=== PATIENT | female | born 1955 | race Caucasian/White ===

== ENCOUNTER 2024-05-07 13:05 | Outpatient (AMB) | payer MEDICARE, SELFPAY ==
--- NOTE | 2024-05-07 13:09 | MHC.OFFVIS ---
Vital Signs 05/07/24 13:19 Height 5 ft 4 in Weight 143 lb 4.807 oz BMI 24.6 BP 120/62 Blood Pressure Location Lt brachial Position Sitting Pulse 63 Pulse Source Monitor Intake Visit Reasons: [employer]/ Susan Leon/ blank as, sob,palps,tachy Allergies Penicillins Allergy (Severe, Verified 05/07/24 13:21) rash Medication List - Last Reconciled 05/07/24 by Sagar Lazo MD magnesium 250 mg PO DAILY minoxidil 2.5 mg PO DAILY propranolol 10 mg PO BID PRN tramadol 25 mg PO Q6H PRN zoledronic uewx-pnsbbral-opqjv 5 mg/100 mL ea IV HPI Comments Details: Jonna has been referred for cardiac evaluation. She does not have any known cardiac issues including coronary disease or myocardial infarction or cardiomyopathy. In March of this year, she was having a viral infection. At that time, it seems that she underwent a chest x-ray that was reported as pulmonary edema which started cardiac evaluation. Subsequently, she had an echocardiogram that reported prva-pw-dvwxfsuu aortic stenosis. Hence there is a concern for any cardiac etiology for her symptoms and hence she is referred here. Patient herself is very active at baseline without any limitations. Recently, she went for hiking trip in [place] and she did well. She does get some chest pressure which has actually been ongoing for more than a year. Nonexertional and can happen any time. She also feels some pulsations in the throat at any time, this could be possibly ectopy but not clear. Some shortness of breath but again somewhat of a vague description as she is still very active. No significant leg swelling. Overall, constellation of symptoms which do not sound classical for angina but could be a sequelae of recent viral infection. [facility] Surgical History (Updated 05/07/24 @ 13:28 by Josephine Torrez) H/O shoulder surgery Family History (Updated 05/07/24 @ 13:29 by Josephine Torrez) Sister Heart problem Father No problems noted. Mother No problems noted. Social History (Updated 05/07/24 @ 13:30 by Josephine Torrez) Alcohol intake: current Alcohol type: wine Patient Tobacco Use Status: Never used Tobacco Review of Systems Const Denies weakness ENT Denies dizziness Card Reports chest pain, Denies chest pain with activity, Denies syncope, Denies rapid heart rate, Denies pedal edema, Denies edema, Denies leg edema, Denies lightheadedness, Reports palpitations, Denies dyspnea, Denies dyspnea on exertion and Denies orthopnea Resp Denies cough, Denies dyspnea and Denies dyspnea on exertion GI Denies hematochezia and Denies change in stool character Musc Denies abnormal gait, Denies muscle cramps, Denies muscle weakness, Denies numbness, Denies radiating pain into limb and Denies tingling Neuro Denies abnormal gait, Denies dizziness, Denies syncope, Denies numbness, Denies tingling and Denies weakness Endo Reports palpitations Physical Exam Vital Signs: Last Vital Signs Pulse 63 05/07/24 13:19 BP 120/62 05/07/24 13:19 BMI result Body Mass Index 24.6 Const General: comfortable and no acute distress Orientation/consciousness: patient oriented x3 HEENT Other: Unremarkable Head: Yes normal to inspection Neck Neck: Yes normal visual inspection Chest Chest palpation & inspection: normal inspection of the chest Resp Auscultation: clear to auscultation bilaterally Cardio Palpation: normal PMI Heart sounds: S1 normal heart sound present, S2 normal heart sound present, no gallops, no murmurs and no rubs GI Palpation (GI): Soft to palpation Back/Spine/Pelvis Other: unremarkable Skin General skin exam: no rashes or lesions noted Neuro General: patient oriented x3 Extrem General: Yes normal to inspection Psych Mental Status: mental status grossly normal Office Procedures EKG Details: EKG with underlying sinus rhythm at 63/Min; inferior and anterolateral nonspecific ST-T changes; [place] [id number], Complete Assessment & Plan Assessment & Plan (1) Precordial chest pain: Code(s): R07.2 - Precordial pain Category: Medical (2) Shortness of breath: Code(s): R06.02 - Shortness of breath Category: Medical (3) Palpitations: Code(s): R00.2 - Palpitations Category: Medical Plan Pertinent data reviewed. EKG with nonspecific ST-T changes as above. Recent NT proBNP well within normal limits which goes against any significant cardiac dysfunction. Other labs seem unremarkable. Chest x-ray which was performed because of cough reported as mildly enlarged heart/mild pulmonary edema but wonder if it was just a viral pneumonitis rather. Do not believe they enlarged heart finding is relevant as the echocardiogram shows normal LV size. In the recent echocardiogram, LVEF 60-65% with normal septal/lateral E prime as well as normal diastolic filling suggestive of overall normal diastolic function with normal filling pressures. Left atrium is normal size. Top normal RVSP. IVC has normal size/respiratory variation. Aortic valve reported have hson-gg-ctodstqx stenosis but the mean gradient is only 5 mm Hg and hence doubt any significance especially with normal LVOT VTI suggesting normal stroke volume. Even otherwise the reported xmcf-bl-zwogsuzo stenosis should not be causing any of her symptoms. Clinically, she does not have any aortic stenotic murmur either. Overall, do not believe shortness of breath/cough are of cardiac etiology. Could be related to a recent viral infection. With regard to the longstanding chest pressure which has been going on for more than a year, again not clear as to etiology. We will do a coronary CTA for further evaluation. With regard to the palpitations that go up to her throat, possible ectopy. We will do a Holter monitor for that. We will reconvene once these are all completed. Otherwise, mainly reassurance at this time. Discussed with who came for appointment. Orders: Orders CT Cardiac Coronary Angio Today R07.2 - Precordial pain ECG 7 day holter monitor Today R00.2 - Palpitations Basic Metabolic Panel Today R07.2 - Precordial pain Coding Level of Care Code New Pt Level 4 (73161) Diagnoses Precordial chest pain R07.2 Shortness of breath R06.02 Palpitations R00.2 CPT Codes EKG - CPT: 04069-[id number], Complete ([id number])
[2024-05-07 13:19] VITALS: BP 120/62; PULSE 63; BMI 24.6
== END 2024-05-07 14:05 | disposition home or self-care (01) ==
PROVIDERS: PCP Family Medicine; Visit Provider Internal Medicine
DX: R07.2 Precordial pain (principal); R06.02 Shortness of breath; R00.2 Palpitations
CPT/HCPCS: 93010; 99204

== ENCOUNTER → 2024-05-07 13:05 | Outpatient (BNVA) | payer MEDICARE, SELFPAY | PROVIDERS: PCP Family Medicine; Visit Provider Internal Medicine | DX: R07.2 Precordial pain (principal); R06.02 Shortness of breath; R00.2 Palpitations | CPT/HCPCS: 93005; 99202 ==

== ENCOUNTER → 2024-05-24 08:40 | Outpatient (REF) | payer MEDICARE, SELFPAY ==
--- NOTE | 2024-05-24 08:44 | HM_ITS ---
* Total monitoring time 6 days and 11 hours. * Underlying rhythm is sinus with an average rate of 83/Min. * Rare supraventricular ectopy. * Rare ventricular ectopy. Short run of 5 beats, but could also be supraventricular. * No significant pauses or high-grade AV blocks. * No patient markers or diary events. MTDD
== END ==
LOC: HO.CARD 08:40
PROVIDERS: PCP Family Medicine; Visit Provider Internal Medicine
DX: R00.2 Palpitations (principal)
CPT/HCPCS: 93242

== ENCOUNTER → 2024-05-24 08:44 | Outpatient (BNV) | payer MEDICARE, SELFPAY | PROVIDERS: PCP Family Medicine; Visit Provider Internal Medicine | DX: I47.10 Supraventricular tachycardia, unspecified (principal) | CPT/HCPCS: 93244 ==

== ENCOUNTER 2024-07-12 15:11 | Outpatient (REF) | payer MEDICARE, SELFPAY ==
[2024-07-12 16:13] LABS: Anion Gap 13 (12-20); Blood Urea Nitrogen 17 mg/dL (9-16); Calcium 9.7 mg/dL (8.4-10.2); Carbon Dioxide 23 mmol/L (22-29); Chloride 110 mmol/L (96-108); Estimated Glomerular Filt Rate > 60; Glucose Random 86 mg/dL (60-115); Potassium 4.2 mmol/L (3.3-5.1); Sodium 142 mmol/L (135-145)
== END 2024-07-12 15:12 | disposition home or self-care (01) ==
LOC: HO.LAB 15:11
PROVIDERS: PCP Family Medicine; Visit Provider Internal Medicine
DX: R07.2 Precordial pain (principal)
CPT/HCPCS: 36415; 80048

== ENCOUNTER 2024-08-12 13:15 | Outpatient (AMB) | payer MEDICARE, SELFPAY ==
[2024-08-12 13:20] VITALS: BP 118/70; PULSE 99; BMI 25.4
--- NOTE | 2024-08-12 13:20 | A.OFFVIS_ITS ---
Vital Signs 08/12/24 13:20 Height 5 ft 4 in Weight 147 lb 11.355 oz BMI 25.4 BP 118/70 Blood Pressure Location Lt brachial Position Sitting Pulse 99 Pulse Source Pulse Oximeter Intake Visit Reasons: f/up after cta Set Up Operator Tool Required: No Accompanied by: Self / Same As Patient Allergies Penicillins Allergy (Severe, Verified 05/07/24 13:21) rash Medication List - Last Reconciled 08/12/24 by Sagar Lazo MD minoxidil 2.5 mg PO DAILY multivitamin 1 tab PO DAILY prednisone 10 mg PO DIRECTED tramadol 25 mg PO Q6H PRN zoledronic kuav-hxmgjcpl-yxbzu 5 mg/100 mL ea IV HPI Comments Details: Jonna returns for follow-up. Recently seen in consultation regarding shortness of breath. No known cardiac issues. In 04/07/2024, she was having viral infection. After that, she underwent a chest x-ray that was reported as pulmonary edema which started the cardiac evaluation. Subsequently, she had an echocardiogram that reported xecu-ui-tneuadme aortic stenosis. Hence there was a concern for any cardiac etiology for her symptoms and hence she is referred here. Patient herself is very active at baseline without any limitations. Few months back, she went for hiking trip in [place] and she did well. She does get some chest pressure which has actually been ongoing for more than a year. Nonexertional and can happen any time. She also feels some pulsations in the throat at any time, this could be possibly ectopy but not clear. Shortness of breath is also ongoing. Also she states she got a recent viral/bronchial type infection and does not feel too good overall. She has completed a coronary CTA and Holter monitor. [facility] Surgical History H/O shoulder surgery Family History Sister Heart problem Father No problems noted. Mother No problems noted. Social History Alcohol intake: current Alcohol type: wine Patient Tobacco Use Status: Never used Tobacco Review of Systems Const Denies chills, Denies fatigue, Denies fever(s), Denies weight gain and Denies weight loss ENT Denies dizziness Card Denies chest pain, Denies leg edema, Denies lightheadedness, Denies palpitations, Reports dyspnea on exertion, Denies orthopnea and Denies other Resp Denies cough and Reports dyspnea on exertion GI Denies hematochezia and Denies change in stool character Musc Denies abnormal gait, Denies muscle weakness, Denies numbness, Denies radiating pain into limb and Denies tingling Neuro Denies abnormal gait, Denies dizziness, Denies numbness and Denies tingling Endo Denies fatigue and Denies palpitations Physical Exam Vital Signs: Last Vital Signs Pulse 99 08/12/24 13:20 BP 118/70 08/12/24 13:20 BMI result Body Mass Index 25.4 Const General: comfortable and no acute distress Orientation/consciousness: patient oriented x3 HEENT Other: Unremarkable Head: Yes normal to inspection Neck Neck: Yes normal visual inspection Chest Chest palpation & inspection: normal inspection of the chest Resp Other: Scattered rhonchi Cardio Palpation: normal PMI Heart sounds: S1 normal heart sound present, S2 normal heart sound present, no gallops, no murmurs and no rubs GI Palpation (GI): Soft to palpation Back/Spine/Pelvis Other: unremarkable Skin General skin exam: no rashes or lesions noted Neuro General: patient oriented x3 Extrem General: Yes normal to inspection Psych Mental Status: mental status grossly normal Assessment & Plan Assessment & Plan (1) Precordial chest pain: Code(s): R07.2 - Precordial pain Category: Medical (2) Shortness of breath: Code(s): R06.02 - Shortness of breath Category: Medical (3) Palpitations: Code(s): R00.2 - Palpitations Category: Medical (4) Atherosclerotic cardiovascular disease: Code(s): I25.10 - Atherosclerotic heart disease of [place] coronary artery without angina pectoris Category: Medical (5) PAC (premature atrial contraction): Code(s): I49.1 - Atrial premature depolarization Category: Medical (6) PVC (premature ventricular contraction): Code(s): I49.3 - Ventricular premature depolarization Category: Medical Plan Pertinent data reviewed. EKG with nonspecific ST-T changes. Recent NT proBNP well within normal limits which goes against any significant cardiac dysfunction. Other labs seem unremarkable. Chest x-ray which was performed because of cough reported as mildly enlarged heart/mild pulmonary edema but wonder if it was just a viral pneumonitis rather. Do not believe they enlarged heart finding is relevant as the echocardiogram shows normal LV size. In the recent echocardiogram, LVEF 60-65% with normal septal/lateral E' as well as normal diastolic filling suggestive of overall normal diastolic function with normal filling pressures. Left atrium is normal size. Top normal RVSP. IVC has normal size/respiratory variation. Aortic valve reported have cyrk-ce-wyurjyrg stenosis but the mean gradient is only 5 mm Hg and hence doubt any significance especially with normal LVOT VTI suggesting normal stroke volume. Even otherwise the reported ncka-qq-vkmamlgp stenosis should not be causing any of her symptoms. Clinically, she does not have any aortic stenotic murmur either. In the coronary CTA, minimal to mild stenosis in the LAD/diagonal. Study was performed for cardiac reasons, but lungs reported as no significant findings. In the Holter monitor, underlying rhythm is sinus with rare supraventricular/ventricular ectopy. Overall, suspect her symptoms of chest pressure/shortness of breath is most likely pulmonary in nature. Could be related to a viral infection which has possibly set off some chronic inflammation type picture. She does have mild wheezing on exam. Would refer her to Pulmonary Medicine further evaluation of this. May need further evaluation with PFTs and/or dedicated lung CTA. With regard to mild coronary disease, it is not causing any symptoms or clinical concerns at this time. We will get lipid profile from PCP and can consider statins. Follow-up in 3-4 months. Orders: Referrals Pulmonology Referral R06.02 - Shortness of breath Coding Level of Care Code Est Pt Level 4 (67044) Diagnoses Precordial chest pain R07.2 Shortness of breath R06.02 Palpitations R00.2 Atherosclerotic cardiovascular disease I25.10 PAC (premature atrial contraction) I49.1 PVC (premature ventricular contraction) I49.3
== END 2024-08-12 13:46 | disposition home or self-care (01) ==
PROVIDERS: PCP Family Medicine; Visit Provider Internal Medicine
DX: R07.2 Precordial pain (principal); R06.02 Shortness of breath; R00.2 Palpitations; I25.10 Atherosclerotic heart disease of native coronary artery without angina pectoris; I49.1 Atrial premature depolarization; I49.3 Ventricular premature depolarization
CPT/HCPCS: 99214

== ENCOUNTER → 2024-08-12 13:15 | Outpatient (BNVA) | payer MEDICARE, SELFPAY | PROVIDERS: PCP Family Medicine; Visit Provider Internal Medicine | DX: R06.02 Shortness of breath (principal); R07.2 Precordial pain; R00.2 Palpitations; I10 Essential (primary) hypertension; I25.10 Atherosclerotic heart disease of native coronary artery without angina pectoris; I49.1 Atrial premature depolarization; I49.3 Ventricular premature depolarization | CPT/HCPCS: 99212 ==

== ENCOUNTER 2024-08-22 12:53 | Outpatient (REF) | payer MEDICARE, SELFPAY ==
[2024-08-22 13:57] LABS: MANUAL DIFF FLAG NO
[2024-08-22 14:35] LABS: Basophils Percent Auto 0.6 % (0-2); Eosinophils Absolute Auto 0.1 X10*3/uL (0.0-0.4); Eosinophils Percent Auto 1.7 % (0-4); Hematocrit 39.8 % (37.0-47.0); Hemoglobin 12.9 g/dl (12.0-16.0); Imm Gran Abs Auto 0.01 X10*3/uL (0.00-0.03); Imm Gran Pct Auto 0.2 % (0.0-0.4); Lymphocytes Absolute Auto 1.9 X10*3/uL (1.2-4.9); Lymphocytes Percent Auto 35.7 % (20-40); Mean Corpuscular HGB Conc 32.4 g/dl (31.0-35.0); Mean Corpuscular Hemoglobin 30.9 pg (27.0-33.0); Mean Corpuscular Volume 95.4 fL (80.0-98.0); Monocytes Absolute Auto 0.5 X10*3/uL (0.1-1.2); Monocytes Percent Auto 9.9 % (2-11); Neutrophils Absolute Auto 2.8 x10*3/uL (2.0-8.3); Neutrophils Percent Auto 51.9 % (45-73); Platelet Count 298 X10*3/uL (160-400); Red Blood Count 4.17 X10*6/uL (4.20-5.50); Red Cell Distribution Width 11.8 % (11.0-16.0); White Blood Count 5.4 X10*3/uL (4.8-10.8)
[2024-08-22 14:43] LABS: D Dimer High Sensitivity < 150 NG/ML
[2024-08-22 15:15] LABS: B Type Natriuretic Peptide 17 pg/mL (<100)
[2024-08-22 15:18] LABS: Erythrocyte Sedimentation Rate 7 MM/HR (0-20)
[2024-08-23 21:03] LABS: Immunoglobulin E 151 kU/L (<OR=114)
== END 2024-08-22 12:54 | disposition home or self-care (01) ==
LOC: HO.LAB 12:53
PROVIDERS: PCP Family Medicine; Visit Provider Hospitalist
DX: R00.0 Tachycardia, unspecified (principal); R06.00 Dyspnea, unspecified; I35.0 Nonrheumatic aortic (valve) stenosis
CPT/HCPCS: 36415; 82785; 83880; 85025; 85379; 85652; 99202

== ENCOUNTER 2024-08-22 12:53 | Outpatient (AMB) | payer MEDICARE, SELFPAY ==
--- NOTE | 2024-08-22 13:01 | MHC.OFFVIS ---
Vital Signs 08/22/24 13:02 Height 5 ft 4 in Weight 145 lb 8.081 oz BMI 25.0 BP 110/64 Blood Pressure Location Lt brachial Position Sitting Pulse 71 Pulse Source Pulse Oximeter Pulse Oximetry (%) 97 Oxygen Delivery Method Room Air Intake Visit Reasons: Shortness of breath Allergies Penicillins Allergy (Severe, Verified 08/22/24 13:06) rash HPI Comments Details: This is a pulmonary evaluation. The patient is a 69 y/o woman presenting with dyspnea on exertion and palpitations. She was in her usual state of health untill around March 2024, she was having a viral infection. At that time, it seems that she underwent a chest x-ray that was reported as pulmonary edema which started cardiac evaluation. Subsequently, she had an echocardiogram that reported aknh-fh-gyndwacs aortic stenosis. The patient then developed Covid 19 s/p Paxlovid. Then, she recovered, but, then became sick again with a 3rd viral syndrome. Finally starting to feel better, but still having episodes of palpitations and tachycardia. Even at rest. During the office visit, we did go up 3 flights of stairs and HR increased to 116 and pox was stable. [facility] Medical History (Updated 08/22/24 @ 22:02 by Adam Bolden MD) Aortic stenosis Dyspnea Tachycardia Surgical History H/O shoulder surgery Family History Sister Heart problem Father No problems noted. Mother No problems noted. Social History Alcohol intake: current Alcohol type: wine Patient Tobacco Use Status: Never used Tobacco Review of Systems Const Denies chills, Denies fatigue, Denies fever(s), Denies weight gain and Denies weight loss ENT Denies dizziness Card Denies chest pain, Denies leg edema, Denies lightheadedness, Reports palpitations, Reports dyspnea on exertion, Denies orthopnea and Denies other Resp Denies cough and Reports dyspnea on exertion GI Denies hematochezia and Denies change in stool character Musc Denies abnormal gait, Denies muscle weakness, Denies numbness, Denies radiating pain into limb and Denies tingling Neuro Denies abnormal gait, Denies dizziness, Denies numbness and Denies tingling Endo Denies fatigue and Reports palpitations Physical Exam Vital Signs: Last Vital Signs Pulse 71 08/22/24 13:02 BP 110/64 08/22/24 13:02 Pulse Ox 97 08/22/24 13:02 Oxygen Delivery Method Room Air 08/22/24 13:02 BMI result Body Mass Index 25.0 Const General: comfortable and no acute distress Orientation/consciousness: patient oriented x3 HEENT Other: Unremarkable Head: Yes normal to inspection Neck Neck: Yes normal visual inspection Chest Chest palpation & inspection: normal inspection of the chest Resp Other: Scattered rhonchi Effort & Inspection: normal respiratory effort Auscultation: clear to auscultation bilaterally Cardio Palpation: normal PMI Heart sounds: S1 normal heart sound present, S2 normal heart sound present, no gallops, no murmurs and no rubs GI Palpation (GI): Soft to palpation Back/Spine/Pelvis Other: unremarkable Skin General skin exam: no rashes or lesions noted Neuro General: patient oriented x3 Extrem General: Yes normal to inspection Psych Mental Status: mental status grossly normal Assessment & Plan Assessment & Plan (1) Dyspnea: Code(s): R06.00 - Dyspnea, unspecified Category: Medical Qualifiers: Dyspnea type: dyspnea on exertion Qualified Code(s): R06.09 - Other forms of dyspnea (2) Aortic stenosis: Code(s): I35.0 - Nonrheumatic aortic (valve) stenosis Category: Medical Qualifiers: Cardiac valve disease etiology: etiology unspecified Qualified Code(s): I35.0 - Nonrheumatic aortic (valve) stenosis (3) Tachycardia: Code(s): R00.0 - Tachycardia, unspecified Category: Medical Plan PFTs Bloodwork monitor HR consider CPET if no better Orders: Orders D Dimer High Sensitivity Today R00.0 - Tachycardia, unspecified, R06.00 - Dyspnea, unspecified Complete Blood Count Auto Diff Today R00.0 - Tachycardia, unspecified, R06.00 - Dyspnea, unspecified Immunoglobulin E Today R00.0 - Tachycardia, unspecified, R06.00 - Dyspnea, unspecified Erythrocyte Sedimentation Rate Today R00.0 - Tachycardia, unspecified, R06.00 - Dyspnea, unspecified B Type Natriuretic Peptide Today R00.0 - Tachycardia, unspecified, R06.00 - Dyspnea, unspecified Coding Level of Care Code New Pt Level 4 (63428) Diagnoses Dyspnea on exertion R06.09 Dyspnea type: dyspnea on exertion Aortic valve stenosis, etiology of cardiac valve disease unspecified I35.0 Cardiac valve disease etiology: etiology unspecified Tachycardia R00.0 Time Spent (min) 40
[2024-08-22 13:02] VITALS: BP 110/64; PULSE 71; O2SAT 97; BMI 25.0
== END 2024-08-22 13:42 | disposition home or self-care (01) ==
PROVIDERS: PCP Family Medicine; Visit Provider Hospitalist
DX: R06.09 Other forms of dyspnea (principal); I35.0 Nonrheumatic aortic (valve) stenosis; R00.0 Tachycardia, unspecified
CPT/HCPCS: 99204

== ENCOUNTER 2024-10-04 13:49 | Outpatient (REF) | payer MEDICARE, SELFPAY ==
--- NOTE | 2024-10-04 13:55 | PFT_ITS ---
Indication: Dyspnea Spirometry [FEV1 to FVC 78%; FEV1 2.46 L; FVC 3.14 L. No significant response to bronchodilators noted.] Lung Volumes [Total lung capacity 101% predicted] Diffusion Capacity [DLCO 97% predicted] Comparisons [none] Interpretation [No obstructive nor restrictive ventilatory defects identified. No significant response to bronchodilators noted. Normal lung volumes. Diffusing capacity is within normal limits. Clinical correlation warranted.] MTDD
[2024-10-04 14:29] VITALS: PULSE 97; O2SAT 97
== END 2024-10-04 13:50 | disposition home or self-care (01) ==
LOC: HO.RESP 13:49
PROVIDERS: PCP Family Medicine; Visit Provider Hospitalist
DX: R06.09 Other forms of dyspnea (principal)
CPT/HCPCS: 94010; 94640; 94727; 94729

== ENCOUNTER → 2024-10-04 13:55 | Outpatient (BNV) | payer MEDICARE, SELFPAY | PROVIDERS: PCP Family Medicine; Visit Provider Hospitalist | DX: R06.09 Other forms of dyspnea (principal) | CPT/HCPCS: 94060; 94727; 94729 ==

== ENCOUNTER 2024-10-24 08:21 | Outpatient (REF) | payer MEDICARE, SELFPAY ==
[2024-10-24 09:36] LABS: Alanine Aminotransferase 26 U/L (0-31); Albumin Level 4.2 g/dL (3.5-5.0); Alkaline Phosphatase 61 U/L (39-117); Aspartate Amino Transferase 30 U/L (5-31); Bilirubin Direct 0.4 mg/dL (0.0-0.5); Bilirubin Total 1.2 mg/dL (0.0-1.0); Cholesterol 199 mg/dL (<200); HDL Cholesterol 96 mg/dL (>40); LDL Cholesterol Calculated 93 mg/dL (<100); Total Protein 6.6 g/dL (6.5-8.0); Triglycerides 53 mg/dL (<150)
== END 2024-10-24 08:22 | disposition home or self-care (01) ==
LOC: HO.LAB 08:21
PROVIDERS: PCP Family Medicine; Visit Provider Internal Medicine
DX: I25.10 Atherosclerotic heart disease of native coronary artery without angina pectoris (principal); I10 Essential (primary) hypertension
CPT/HCPCS: 36415; 80061; 80076

== ENCOUNTER 2024-10-31 13:46 | Outpatient (AMB) | payer MEDICARE, SELFPAY ==
[2024-10-31 14:11] VITALS: BP 126/66; PULSE 78; BMI 24.2
--- NOTE | 2024-10-31 14:11 | A.OFFVIS_ITS ---
Vital Signs 10/31/24 14:11 Height 5 ft 4 in Weight 141 lb 1.533 oz BMI 24.2 BP 126/66 Blood Pressure Location Lt brachial Position Sitting Pulse 78 Pulse Source Pulse Oximeter Intake Visit Reasons: 3m follow up Allergies Penicillins Allergy (Severe, Verified 08/22/24 13:06) rash Medication List - Last Reconciled 10/31/24 by Sagar Lazo MD ascorbate calcium (vitamin C) 500 mg PO DAILY atorvastatin 10 mg PO BEDTIME folic acid 1 mg PO DAILY minoxidil 2.5 mg PO DAILY multivitamin 1 tab PO DAILY zinc acetate 25 mg PO DAILY zoledronic amwe-qbuvtvgy-apdrf 5 mg/100 mL ea IV HPI Comments Details: Jonna returns for follow-up. Recently seen in consultation regarding shortness of breath. No known cardiac issues. In 03/2024, she was having viral infection. After that, she underwent a chest x-ray that was reported as pulmonary edema which started the cardiac evaluation. Subsequently, she had an echocardiogram that reported uswa-zd-nzdhzgmi aortic stenosis. Hence there was a concern for any cardiac etiology for her symptoms and hence she is referred here. Patient herself is very active at baseline without any limitations. Few months back, she went for hiking trip in [place] and she did well. She does get some chest pressure which has actually been ongoing for more than a year. Nonexertional and can happen any time. She also feels some pulsations in the throat at any time, this could be possibly ectopy but not clear. Shortness of breath is also ongoing. Also she states she got a recent viral/bronchial type infection and does not feel too good overall. She has completed a coronary CTA and Holter monitor. Since last seen, she states that she is actually feeling better. The shortness of breath itself is improved significantly. She still feels some palpitations in the morning where the heart is racing but the rate is still < 100. Not clear what it is. Otherwise, feels good. [facility] Medical History (Updated 08/22/24 @ 22:02 by Adam Bolden MD) Aortic stenosis Dyspnea Tachycardia Surgical History H/O shoulder surgery Family History Sister Heart problem Father No problems noted. Mother No problems noted. Social History Alcohol intake: current Alcohol type: wine Patient Tobacco Use Status: Never used Tobacco Review of Systems Const Denies weakness ENT Denies dizziness Card Denies chest pain, Denies chest pain with activity, Denies syncope, Denies rapid heart rate, Denies pedal edema, Denies edema, Denies leg edema, Denies lightheadedness, Denies palpitations, Denies dyspnea, Denies dyspnea on exertion and Denies orthopnea Resp Denies cough, Denies dyspnea and Denies dyspnea on exertion GI Denies hematochezia and Denies change in stool character Musc Denies abnormal gait, Denies muscle cramps, Denies muscle weakness, Denies numbness, Denies radiating pain into limb and Denies tingling Neuro Denies abnormal gait, Denies dizziness, Denies syncope, Denies numbness, Denies tingling and Denies weakness Endo Denies palpitations Physical Exam Vital Signs: Last Vital Signs Pulse 78 10/31/24 14:11 BP 126/66 10/31/24 14:11 BMI result Body Mass Index 24.2 Const General: comfortable and no acute distress Orientation/consciousness: patient oriented x3 HEENT Other: Unremarkable Head: Yes normal to inspection Neck Neck: Yes normal visual inspection Chest Chest palpation & inspection: normal inspection of the chest Resp Auscultation: clear to auscultation bilaterally Cardio Palpation: normal PMI Heart sounds: S1 normal heart sound present, S2 normal heart sound present, no gallops, no murmurs and no rubs GI Palpation (GI): Soft to palpation Back/Spine/Pelvis Other: unremarkable Skin General skin exam: no rashes or lesions noted Neuro General: patient oriented x3 Extrem General: Yes normal to inspection Psych Mental Status: mental status grossly normal Assessment & Plan Assessment & Plan (1) Precordial chest pain: Code(s): R07.2 - Precordial pain Category: Medical (2) Shortness of breath: Code(s): R06.02 - Shortness of breath Category: Medical (3) Palpitations: Code(s): R00.2 - Palpitations Category: Medical (4) Atherosclerotic cardiovascular disease: Code(s): I25.10 - Atherosclerotic heart disease of [place] coronary artery without angina pectoris Category: Medical (5) PAC (premature atrial contraction): Code(s): I49.1 - Atrial premature depolarization Category: Medical (6) PVC (premature ventricular contraction): Code(s): I49.3 - Ventricular premature depolarization Category: Medical Plan Pertinent data reviewed. EKG with nonspecific ST-T changes. cBNP well within normal limits which goes against any significant cardiac dysfunction. Other labs seem unremarkable. Chest x-ray which was performed because of cough reported as mildly enlarged heart/mild pulmonary edema but wonder if it was just a viral pneumonitis rather. Do not believe they enlarged heart finding is relevant as the echocardiogram shows normal LV size. In the echocardiogram, LVEF 60-65% with normal septal/lateral E' as well as normal diastolic filling suggestive of overall normal diastolic function with normal filling pressures. Left atrium is normal size. Top normal RVSP. IVC has normal size/respiratory variation. Aortic valve reported have ljrw-fr-pdptgbav stenosis but the mean gradient is only 5 mm Hg and hence doubt any significance especially with normal LVOT VTI suggesting normal stroke volume. Clinically, she does not have any aortic stenotic murmur either. In the coronary CTA, minimal to mild stenosis in the LAD/diagonal. Study was performed for cardiac reasons, but lungs reported as no significant findings. In the Holter monitor, underlying rhythm is sinus with rare supraventricular/ventricular ectopy. In the labs, IgE slightly elevated. Overall, possible bronchial hyperreactivity related to respiratory infection with slow recovery. Based on the cardiac data, no clear etiology for shortness of breath. Anyway, it seems to be improving. With regard to palpitations, again nonspecific and could also be just subjective. Mainly reassurance for that. With regard to the mild coronary disease, recommend going up on the statins as the lipids are still slightly on the higher side. She can take Atorvastatin rather 20 mg daily and we can recheck labs in about 3 months. Discussed about that. Follow-up in one year. In the interim, she can call with any concerns. Total time spent including review of data, counseling, documentation, coordination of care-32 minutes. Orders: Orders Lipid Panel 3 Months E78.5 - Hyperlipidemia, unspecified, I25.10 - Atherosclerotic heart disease of [place] coronary artery without angina pectoris Liver Panel 3 Months I25.10 - Atherosclerotic heart disease of [place] coronary artery without angina pectoris Medications: New atorvastatin (Lipitor) 20 mg PO QPM 90 tabs 1RF Discontinued atorvastatin Discontinued Reason: Doctor's Order 10 mg PO BEDTIME 30 tabs 5RF Coding Level of Care Code Est Pt Level 4 (79273) Diagnoses Precordial chest pain R07.2 Shortness of breath R06.02 Palpitations R00.2 Atherosclerotic cardiovascular disease I25.10 PAC (premature atrial contraction) I49.1 PVC (premature ventricular contraction) I49.3
== END 2024-10-31 14:32 | disposition home or self-care (01) ==
LOC: HO.HCS 13:47
PROVIDERS: PCP Family Medicine; Visit Provider Internal Medicine
DX: R07.2 Precordial pain (principal); R06.02 Shortness of breath; R00.2 Palpitations; I25.10 Atherosclerotic heart disease of native coronary artery without angina pectoris; I49.1 Atrial premature depolarization; I49.3 Ventricular premature depolarization
CPT/HCPCS: 99214

== ENCOUNTER → 2024-10-31 13:46 | Outpatient (BNVA) | payer MEDICARE, SELFPAY | PROVIDERS: PCP Family Medicine; Visit Provider Internal Medicine | DX: I25.10 Atherosclerotic heart disease of native coronary artery without angina pectoris (principal); I49.1 Atrial premature depolarization; I49.3 Ventricular premature depolarization; E78.5 Hyperlipidemia, unspecified; R07.2 Precordial pain; R06.02 Shortness of breath; R00.2 Palpitations | CPT/HCPCS: 99212 ==

== ENCOUNTER 2024-11-19 14:04 | Outpatient (AMB) | payer MEDICARE, SELFPAY ==
[2024-11-19 14:14] VITALS: BP 110/56; PULSE 95; O2SAT 96; BMI 25.0
--- NOTE | 2024-11-19 14:14 | MHC.OFFVIS ---
Vital Signs 11/19/24 14:14 Height 5 ft 4 in Weight 145 lb 8.081 oz BMI 25.0 BP 110/56 L Blood Pressure Location Lt brachial Position Sitting Pulse 95 Pulse Source Pulse Oximeter Pulse Oximetry (%) 96 Oxygen Delivery Method Room Air Intake Visit Reasons: dyspnea Marriage And Family Social Worker Required: No Accompanied by: Self / Same As Patient Allergies Penicillins Allergy (Severe, Verified 11/19/24 14:18) rash HPI Comments Details: The patient is a 69 y/o woman presenting with dyspnea on exertion and palpitations. She was in her usual state of health untill around March 2024, she was having a viral infection. At that time, it seems that she underwent a chest x-ray that was reported as pulmonary edema which started cardiac evaluation. Subsequently, she had an echocardiogram that reported pzjo-no-jmpyoeqm aortic stenosis. The patient then developed Covid 19 s/p Paxlovid. Then, she recovered, but, then became sick again with a 3rd viral syndrome. Finally starting to feel better, but still having episodes of palpitations and tachycardia. Even at rest. During the office visit, we did go up 3 flights of stairs and HR increased to 116 and pox was stable. 11/19/2024 the patient is here for pulmonary follow-up visit. Overall the patient feels much better. She is slowly recovering. 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 The patient has been exercising more regularly. The heart rate has not increased as much. Her shortness of breath is also improved some. She did have pulmonary function studies that were very reassuring completely normal with normal lung mechanics. The patient also had blood work demonstrating an elevated IgE which probably was just a little allergy but not significant or clinically relevant. At this point the patient does not need to treat it and needing additional allergy testing. The patient could consider doing a cardiopulmonary exercise tolerance test if her symptoms worsen. But right now since she is recovering she will continue with what she is doing as the CPAP is not going to really change much right now. If her symptoms worsen or she is no longer improving she can always call we can always order the CPAP for her [facility]. Otherwise patient is doing well will follow-up as needed. She will continue to follow closely with Cardiology. [facility] Medical History (Updated 11/20/24 @ 08:21 by Adam Bolden MD) Aortic stenosis Dyspnea Tachycardia Surgical History H/O shoulder surgery Family History Sister Heart problem Father No problems noted. Mother No problems noted. Social History Alcohol intake: current Alcohol type: wine Patient Tobacco Use Status: Never used Tobacco Review of Systems Const Denies chills, Denies fatigue, Denies fever(s), Denies weight gain and Denies weight loss ENT Denies dizziness Card Denies chest pain, Denies leg edema, Denies lightheadedness, Reports palpitations, Reports dyspnea on exertion, Denies orthopnea and Denies other Resp Denies cough and Reports dyspnea on exertion GI Denies hematochezia and Denies change in stool character Musc Denies abnormal gait, Denies muscle weakness, Denies numbness, Denies radiating pain into limb and Denies tingling Neuro Denies abnormal gait, Denies dizziness, Denies numbness and Denies tingling Endo Denies fatigue and Reports palpitations Physical Exam Vital Signs: Last Vital Signs Pulse 95 11/19/24 14:14 BP 110/56 L 11/19/24 14:14 Pulse Ox 96 11/19/24 14:14 Oxygen Delivery Method Room Air 11/19/24 14:14 BMI result Body Mass Index 25.0 Const General: comfortable and no acute distress Orientation/consciousness: patient oriented x3 HEENT Other: Unremarkable Head: Yes normal to inspection Neck Neck: Yes normal visual inspection Chest Chest palpation & inspection: normal inspection of the chest Resp Other: Scattered rhonchi Effort & Inspection: normal respiratory effort Auscultation: clear to auscultation bilaterally Cardio Palpation: normal PMI Heart sounds: S1 normal heart sound present, S2 normal heart sound present, no gallops, no murmurs and no rubs GI Palpation (GI): Soft to palpation Back/Spine/Pelvis Other: unremarkable Skin General skin exam: no rashes or lesions noted Neuro General: patient oriented x3 Extrem General: Yes normal to inspection Psych Mental Status: mental status grossly normal Assessment & Plan Assessment & Plan (1) Dyspnea: Comment: better Code(s): R06.00 - Dyspnea, unspecified Category: Medical Qualifiers: Dyspnea type: dyspnea on exertion Qualified Code(s): R06.09 - Other forms of dyspnea (2) Aortic stenosis: Code(s): I35.0 - Nonrheumatic aortic (valve) stenosis Category: Medical Qualifiers: Cardiac valve disease etiology: etiology unspecified Qualified Code(s): I35.0 - Nonrheumatic aortic (valve) stenosis (3) Tachycardia: Comment: better Code(s): R00.0 - Tachycardia, unspecified Category: Medical Plan Continue exercise regimen consider CPET if no better F/U PRN Coding Level of Care Code Est Pt Level 4 (22471) Diagnoses Dyspnea on exertion R06.09 Dyspnea type: dyspnea on exertion Aortic valve stenosis, etiology of cardiac valve disease unspecified I35.0 Cardiac valve disease etiology: etiology unspecified Tachycardia R00.0 Time Spent (min) 17
== END 2024-11-19 14:47 | disposition home or self-care (01) ==
LOC: HO.HPS 14:06
PROVIDERS: PCP Family Medicine; Visit Provider Hospitalist
DX: R06.09 Other forms of dyspnea (principal); I35.0 Nonrheumatic aortic (valve) stenosis; R00.0 Tachycardia, unspecified
CPT/HCPCS: 99214

== ENCOUNTER → 2024-11-19 14:04 | Outpatient (BNVA) | payer MEDICARE, SELFPAY | PROVIDERS: PCP Family Medicine; Visit Provider Hospitalist | DX: R06.09 Other forms of dyspnea (principal); R00.0 Tachycardia, unspecified; I35.0 Nonrheumatic aortic (valve) stenosis | CPT/HCPCS: 99212 ==

== ENCOUNTER 2025-01-27 07:38 | Outpatient (REF) | payer MEDICARE, SELFPAY ==
--- OUTSIDE RECORDS SUMMARY | 2025-01-27 07:41 | XMS_ITS | Encounter Summary ---
Author Organization [facility] Address [address] [place] [phone] Phone Care Team Providers Care Hand I Thermal Cutter Name Role Phone Susan Leon MD Primary Care Provider [phone] Susan Leon MD Unavailable Encounter Details Date Type Department Care Team (Late st Contact Info) Description 01/07/2022 Procedure [facility], [address] [address] Social History Tobacco Use Types Packs/Day Years Used Date Smoking Tobacco: Never Smokeless Tobacco: Never Alcohol Use Standard Drinks/Week Comments Yes 7 (1 standard drink = 0.6 oz pur e alcohol) 1-2 glasses of wine per night Child or Family Care Answer Date Record ed Do you have problems with on e of the following making it difficult for you to work, study, or receive health care? No 08/23/2021 Education Answer Date Recorded Are you interested in help w ith more adult education (for example, completing high school, GED, job training, learning the [place] language, technical skills, or developing parenting skills)? No 08/23/2021 Food Answer Date Recorded Within the past 6 months we worried whether our food would run out before we got money to buy more. Never True 08/23/2021 Within the past 6 months the food we bought just didn't last and we didn't have enough money to get more. Never True Residential Stability Answer Date Recor ded What is your housing situation today? I have deborah sing 08/23/2021 How many times have you move d in the past 12 months? Zero (I did not move) 08/23/2021 Paying for Meds Answer Date Recorded Do you have trouble paying for medicines? No 08/23/2021 Paying Utility Bills Answer Date Record ed Do you have trouble paying your heating or elect ricity bill? No 08/23/2021 Transportation Answer Date Recorded Has the lack of transportati on kept you from medical appointments or from getting medications? No 08/23/2021 Unemployment Answer Date Recorded Are you currently unemployed or working on a part-time or temporary basis, and looking for work? No 08/23/2021 Comments No Sex and Gender Information Value Date Recorded Sex Assigned at Female 07/01/2019 8:13 AM EST Legal Sex Female 5:19 PM EST Gender Identity Female 07/01/2019 8:13 AM EST Sexual Orientation Straight 07/01/2019 8: 13 AM EST documented as of this encounter Plan of Treatment Upcoming Encounters Date Type Department Care Team (Late st Contact Info) Description 01/29/2025 8:00 AM EDT Office Visit [facility] [address] [address] Susan Leon MD [address] [facility] [address] [address] [email or web address] 01/19/2026 9:30 AM EDT Office Visit [facility] 22 [place] [address] Brett Pan DO [address] [place] [phone] documented as of this encounter Visit Diagnoses Not on filedocumented in this encounter Additional Health Concerns Infection Onset Date Last Indicated Resolved Time CoV-Presumed 06/16/2022 06/16/2022 07/07/2022 1:21 AM EST CoV-Risk 03/25/2024 03/25/2024 04/05/2024 1:24 AM EDT CoV-Risk Comment:Per Ambulatory Triage Form 06/13/2024 06/13/202406/132024 8:41 AM EST COVID-19 06/13/2024 06/13/2024 07/04/2024 1:21 AM EST CoV-Risk 08/07/2024 08/07/2024 08/18/2024 1:21 AM EST Assessment Noted Time PHQ-2 Depression Total Score: 0 08/20/19 7:54 AM EST documented as of this encounter Care Teams Hand I Thermal Cutter Relationship Specialty Start Date End Date Susan Leon MD [address] [address] [email or web address] PCP - General Family Medicine 07/27/20 Susan Leon MD [address] [address] Insurance Assigned Provider 09/23/23 documented as of this encounter Additional Source Comments The information contained in this document represents components of the legal health record. It is not the complete legal health record.[facility]
[2025-01-27 09:06] LABS: Alanine Aminotransferase 25 U/L (0-31); Albumin Level 4.4 g/dL (3.5-5.0); Alkaline Phosphatase 69 U/L (39-117); Aspartate Amino Transferase 32 U/L (5-31); Cholesterol 188 mg/dL (<200); HDL Cholesterol 90 mg/dL (>40); Total Protein 6.7 g/dL (6.5-8.0); Triglycerides 65 mg/dL (<150)
== END 2025-01-27 07:39 | disposition home or self-care (01) ==
LOC: HO.LAB 07:38
PROVIDERS: PCP Family Medicine; Visit Provider Internal Medicine
DX: I25.10 Atherosclerotic heart disease of native coronary artery without angina pectoris (principal); E78.5 Hyperlipidemia, unspecified
CPT/HCPCS: 36415; 80061; 80076

== ENCOUNTER 2025-04-23 10:21 | Outpatient (REF) | payer MEDICARE, SELFPAY ==
--- OUTSIDE RECORDS SUMMARY | 2025-04-21 | XMS_ITS | Encounter Summary ---
Author Organization [facility] Address [address] [place] [phone] Phone Care Team Providers Care Topographical Engineer Name Role Phone Susan Leon MD Primary Care Provider [phone] Susan Leon MD Unavailable Encounter Details Date Type Department Care Team (Late st Contact Info) Description 04/21/2025 Hospital Encounter [facility] [address] [place] [address] Matt Islas MD [address] [facility] [id number] [place] [address] [email or web address] Arrived Social History Tobacco Use Types Packs/Day Years Used Date Smoking Tobacco: Never Passive Smoke Exposure: Past Smokeless Tobacco: Never Comments:During age [age] li ght smoker Alcohol Use Standard Drinks/Week Comments Yes 7 (1 standard drink = 0.6 oz pur e alcohol) 1-2 glasses of wine per night Child or Family Care Answer Date Record ed Do you have problems with on e of the following making it difficult for you to work, study, or receive health care? No 01/11/2024 Education Answer Date Recorded Are you interested in more education? Not on anila e 08/24/2023 Are you concerned about learning? Not on file 08/24/2023 No 08/24/2023 No 08/24/2023 Food Answer Date Recorded Within the past 6 months we worried whether our food would run out before we got money to buy more. Never True 01/11/2024 Within the past 6 months the food we bought just didn't last and we didn't have enough money to get more. Never True Residential Stability Answer Date Recor ded What is your housing situation today? I have deborah askew 01/11/2024 How many times have you move d in the past 12 months? Zero (I did not move) 01/11/2024 Paying for Meds Answer Date Recorded Do you have trouble paying for medicines? No 01/11/2024 Paying Utility Bills Answer Date Record ed Do you have trouble paying your heating or elect ricity bill? No 01/11/2024 Transportation Answer Date Recorded Has the lack of transportati on kept you from medical appointments or from getting medications? No 01/11/2024 Unemployment Answer Date Recorded Are you currently unemployed or working on a part-time or temporary basis, and looking for work? No 08/23/2021 Digital Access Answer Date Recorded No 01/11/2024 Yes 01/11/2024 Do you have reliable internet access at home? Ye s 01/11/2024 Do you have a device (e.g., phone, tablet, computer) with a working camera? Yes 01/11/2024 Intimate Partner Violence Answer Date R ecorded Are you denied basic needs s uch as food, clothing, or medical care? No 10/28/2022 In the past 12 months have y ou been in a relationship with a person who hurts, threatens, or tries to control you? No 10/28/2022 Are you denied basic needs s uch as food, clothing, or medical care? No 10/28/2022 In the past 12 months have y ou been in a relationship with a person who hurts, threatens, or tries to control you? No 10/28/2022 Comments No Sex and Gender Information Value Date Recorded Sex Assigned at Female 07/01/2019 8:13 AM EST Legal Sex Female 5:19 PM EST Gender Identity Female 07/01/2019 8:13 AM EST Sexual Orientation Straight 07/01/2019 8: 13 AM EST documented as of this encounter Plan of Treatment Upcoming Encounters Date Type Department Care Team (Late st Contact Info) Description 04/24/2025 9:40 AM EST Telemedicine [facility] [place] Department of Orthopaedic Surgery, Shoulder Service [address], [address] [place] [address] Kaci Tomlinson PA-C [address] [address] [email or web address] 05/08/2025 11:00 AM EST Nurse Only [facility] [address] [place] [address] Unknown, MD Jose Manuel 06/25/2025 10:00 AM EST Office Visit [facility] [address] [place] [address] Susan Leon MD [address] [address] [email or web address] Josephine Lin, PT [address] [place] [address] 07/28/2025 9:00 AM EST Telemedicine [facility] [place] Department of Neurology [address] [facility], [address] [place] [address], [address] [place] [address] Penny Bautista MD [address] [place] [phone] [email or web address] 01/19/2026 9:30 AM EDT Office Visit [facility] [address] [place] [address] Brett Pan DO 22 [place] [address] 05/21/2026 10:00 AM EST Office Visit [facility] [place] [address] [facility] [address] [place] [address] Susan Leon MD [address] [facility] [address] [place] [address] [email or web address] documented as of this encounter Procedures Procedure Name Priority Date/Time Associated Diagnosis Comments MRI UPPER EXTREMITY OUTSIDE (NO INTERPRETATION) Routine 04/21/2025 12:00 AM EST documented in this encounter Results * MRI Outside Upper Extremity (No Interpretation) (04/21/2025 12:00 AM EST) Narrative [facility] [place] IMG INTERFACES - 04/23/2025 10:58 AM EST This study is for PACS storage only and not for interpretation. us Matt Islas MD IMG OUTSIDE IMAGING W/OUT I NTERPRETATION Final Result [facility] [place] IMG INTERFACES documented in this encounter Visit Diagnoses Not on filedocumented in this encounter Additional Health Concerns Assessment Noted Time PHQ-2 Depression Total Score: 0 01/30/20 25 2:16 PM EDT documented as of this encounter Care Teams Topographical Engineer Relationship Specialty Start Date End Date Susan Leon MD [address] [place] [phone] [email or web address] PCP - General Family Medicine 07/27/20 Susan Leon MD [address] [place] [id number] [email or web address] Insurance Assigned Provider 09/23/23 documented as of this encounter Additional Source Comments The information contained in this document represents components of the legal health record. It is not the complete legal health record.[facility]
[2025-04-23 11:50] LABS: Alanine Aminotransferase 31 U/L (0-31); Albumin Level 4.6 g/dL (3.5-5.0); Alkaline Phosphatase 80 U/L (39-117); Aspartate Amino Transferase 29 U/L (5-31); Cholesterol 191 mg/dL (<200); HDL Cholesterol 91 mg/dL (>40); Total Protein 6.9 g/dL (6.5-8.0); Triglycerides 64 mg/dL (<150)
--- OUTSIDE RECORDS SUMMARY | 2025-04-23 12:01 | XMS_ITS | Encounter Summary ---
Author Organization [facility] Address [address] [place] [address] Phone Care Team Providers Care Medical Billing Coordinator Name Role Phone Susan Leon MD Primary Care Provider [phone] Susan Leon MD Unavailable Encounter Details Date Type Department Care Team (Late st Contact Info) Description 01/07/2022 Procedure Pass [facility], [address] [address] Social History Tobacco Use Types Packs/Day Years [...] high school, GED, job training, learning the Luxem[place] language, technical skills, or developing parenting skills)? [...] Info) Description 04/24/2025 9:40 AM EST Telemedicine [facility] Department of Orthopaedic Surgery, Shoulder Service [address] [place] [address], [address] [place] [phone] Kaci Tomlinson, PA-C [address] [place] [address] [email or web address] 05/08/2025 11:00 AM EST Nurse Only [facility] [address] [place] [address] Unknown, Unknown, 06/25/2025 10:00 AM EST Office [facility] 58 [place] [address] Susan Leon MD 15 [facility] [address]. [address] [place] [address] [email or web address] Josephine Lin, PT 58 [place] [address] [email or web address] 07/28/2025 9:00 AM EST Telemedicine [facility] Department of Neurology [address] [place] [address], [address] [place] [address], [address] [place] [address] Penny Bautista MD 55 [facility] 720 [place] [address] [email or web address] 01/19/2026 9:30 AM EDT Office Visit [facility] 22 [place] [address] Brett Pan DO 22 [place] [address] [email or web address] 05/21/2026 10:00 AM EST Office Visit [facility] [place] [facility] 15 [facility] [address] [place] [address] Susan Leon MD 15 [facility] [address]. 201 [place] [address] [email or web address] documented as of this encounter Visit Diagnoses Not on filedocumented in this encounter Additional Health Concerns Infection Onset Date Last Indicated Resolved Time CoV-Presumed 06/16/2022 06/16/2022 07/07/2022 1:21 AM EST CoV-Risk 03/25/2024 03/25/2024 04/05/2024 1:24 AM EDT CoV-Risk Comment:Per Ambulatory Triage Form 06/13/2024 06/13/202406/13 8:41 AM EST COVID-19 06/13/2024 06/13/2024 07/04/2024 1:21 AM EST CoV-Risk 08/07/2024 08/07/2024 08/18/2024 1:21 AM EST Assessment Noted Time PHQ-2 Depression Total Score: 0 08/20/19 7:54 AM EST documented as of this encounter Care Teams Medical Billing Coordinator Relationship Specialty Start Date End Date Susan Leon MD 15 [facility] [address] [place] [address] [email or web address] PCP - General Family Medicine 07/27/20 Susan Leon MD [address] [place] [address] [email or web address] Insurance Assigned Provider 09/23/23 documented as of this encounter Additional Source Comments The information contained in this document represents components of the legal health record. It is not the complete legal health record.[facility]
--- OUTSIDE RECORDS SUMMARY | 2025-04-23 12:01 | XMS_ITS | Encounter Summary ---
Author Organization [facility] Address [address] [place] [address] Phone Care Team Providers Care Energy Projects Lead Name Role Phone Susan Leon MD Primary Care Provider [phone] Susan Leon MD Unavailable Encounter Details Date Type Department Care Team (Late st Contact Info) Description 09/28/2020 Ancillary Orders [facility],Outside Imaging 30 [place] [address] System, Provider Not In, [facility] Partners [address] [address] Social History Tobacco Use Types Packs/Day Years Used Date Smoking Tobacco: Never Smokeless Tobacco: Never Alcohol Use Standard Drinks/Week Comments Yes 0 (1 standard drink = 0.6 oz pur e alcohol) 1-2 glasses of wine 3x a week Comments Unknown Sex and Gender Information Value Date Recorded Sex Assigned at Female 07/01/2019 8:13 AM EST Legal Sex Female 5:19 PM EST Gender Identity Female 07/01/2019 8:13 AM EST Sexual Orientation Straight 07/01/2019 8: 13 AM EST documented as of this encounter Plan of Treatment Upcoming Encounters Date Type Department Care Team (Late st Contact Info) Description 04/24/2025 9:40 AM EST Telemedicine [facility] Department of Orthopaedic Surgery, Shoulder Service [address] [facility], [address] [place] [address] Kaci Tomlinson, PA-C [address] [place] [address] [place] [address] 05/08/2025 11:00 AM EST Nurse Only [facility] 22 [place] [address] Jose Manuel Richard MD 06/25/2025 10:00 AM EST Office Visit [facility] 58 [place] [address] Susan Leon MD [address] [address] Josephine Lin, PT 58 [place] [address] 07/28/2025 9:00 AM EST Telemedicine [facility] Department of Neurology [address] [place] [address], [address] [place] [address] Penny Bautista MD [address] [place] [address] [email or web address] 01/19/2026 9:30 AM EDT Office Visit [facility] [address] [place] [address] Brett Pan DO 22 [place] [address] 05/21/2026 10:00 AM EST Office Visit [facility] [place] [facility] 15 [facility] [address] [place] [address] Susan Leon MD [address] [address] [email or web address] documented as of this encounter Results * Mammogram Outside (No Interpretation) (09/29/2017 12:00 AM EDT) Narrative SYSTEMGENERATED, DOCUMENTATION - 09/28/2020 1:14 PM EDT This study is for PACS storage only and not for interpretation. us Provider Not In System PhD IMG OUTSIDE IMAGING W /OUT INTERPRETATION Final Result documented in this encounter Visit Diagnoses Not on filedocumented in this encounter Additional Health Concerns Infection Onset Date Last Indicated Resolved Time CoV-Risk 01/04/2021 01/04/2021 01/14/2021 1:43 AM EDT CoV-Exposed Comment:Recent close contact documented in the COVID-19 PCR/PRO order 06/14/2021 06/15/2021 07/09/2021 1:[address] CoV-Risk Comment:Per Ambulatory Triage Form 06/15/2021 06/18/202106/28 1:25 AM EST CoV-Presumed 06/16/2022 06/16/2022 07/07/2022 1:21 AM EST CoV-Risk 03/25/2024 03/25/2024 04/05/2024 1:24 AM EDT CoV-Risk Comment:Per Ambulatory Triage Form 06/13/2024 06/13/202406/13 8:41 AM EST COVID-19 06/13/2024 06/13/2024 07/04/2024 1:21 AM EST CoV-Risk 08/07/2024 08/07/2024 08/18/2024 1:21 AM EST Assessment Noted Time PHQ-2 Depression Total Score: 0 08/20/19 7:54 AM EST documented as of this encounter Care Teams Energy Projects Lead Relationship Specialty Start Date End Date Susan Leon MD [address] [address] .[place] PCP - General Family Medicine 07/27/20 Susan Leon MD [address] [address] Insurance Assigned Provider 09/23/23 documented as of this encounter Additional Source Comments The information contained in this document represents components of the legal health record. It is not the complete legal health record.[facility]
--- OUTSIDE RECORDS SUMMARY | 2025-04-23 12:01 | XMS_ITS | Encounter Summary ---
Author Organization [facility] Address [address] [place] [address] Phone Care Team Providers Care Special Education Teacher Name Role Phone Susan Leon MD Primary Care Provider [phone] Susan Leon MD Unavailable Encounter Details Date Type Department Care Team (Late st Contact Info) Description 09/29/2020 Ancillary Orders [facility],Outside Imaging 30 [place] [address] System, Provider Not In, [facility] Partners [address] [address] Social History Tobacco Use Types Packs/Day Years [...] Info) Description 04/24/2025 9:40 AM EST Telemedicine [facility] Department of Orthopaedic Surgery, Shoulder Service [address] [facility], [address] [place] [address] Kaci Tomlinson, PA-C [address] [place] [address] [place] [address] 05/08/2025 11:00 AM EST Nurse Only [facility] 22 [place] [address] UnknownJose Manuel MD 06/25/2025 10:00 AM EST Office Visit [facility] Rehabilitation Services 58 [place] [address] Susan Leon MD [address] [address] Josephine Lin, PT 58 [place] [address] 07/28/2025 9:00 AM EST Telemedicine [facility] Department of Neurology [address] [place] [address], [address] [place] [address] Penny Bautista MD [address] [place] [address] [email or web address]. [email or web address] 01/19/2026 9:30 AM EDT Office Visit [facility] 22 [place] [address] Brett Pan DO 22 [place] [address] 05/21/2026 10:00 AM EST Office Visit [facility] [place] [facility] 15 [facility] [address] [place] [address] Susan Leon MD [address] [address] [email or web address] documented as of this encounter Results * US Breast Outside (No Interpretation) (09/29/2017 12:00 AM EDT) Narrative SYSTEMGENERATED, DOCUMENTATION - 09/29/2020 8:47 AM EDT This study is for PACS storage [...] documented as of this encounter Care Teams Special Education Teacher Relationship Specialty Start Date End Date Susan Leon MD [address] [address] [email or web address] PCP - General Family Medicine 07/27/20 Susan Leon MD 15 [facility] 201 [place] [address] Insurance Assigned Provider 09/23/23 documented as of this encounter Additional Source Comments The information contained in this document represents components of the legal health record. It is not the complete legal health record.[facility]
--- OUTSIDE RECORDS SUMMARY | 2025-04-23 12:01 | XMS_ITS | Encounter Summary ---
Author Organization [facility] Address [address] [place] [address] Phone Care Team Providers Care Ship Washer Name Role Phone Susan Leon MD Primary Care Provider [phone] Susan Leon MD Unavailable Encounter Details Date Type Department Care Team (Late st Contact Info) Description 08/20/2020 Procedure Pass [facility], [address] [address] Social History Tobacco Use Types Packs/Day Years Used Date Smoking Tobacco: Never Smokeless Tobacco: Never Alcohol Use Standard Drinks/Week Comments Yes 0 (1 standard drink = 0.6 oz pur e alcohol) 1-2 glasses of wine 3x a week Comments No Sex and Gender Information Value Date Recorded Sex Assigned at Female 07/01/2019 8:13 AM EST Legal Sex Female 5:19 PM EST Gender Identity Female 07/01/2019 8:13 AM EST Sexual Orientation Straight 07/01/2019 8: 13 AM EST documented as of this encounter Plan of Treatment Upcoming Encounters Date Type Department Care Team (Late st Contact Info) Description 04/24/2025 9:40 AM EST Telemedicine [facility] Department of Orthopaedic Surgery, Shoulder Service 52 [facility], [address] [place] [address] Kaci Tomlinson, DAILY 55 [facility] [place] [address] [place] [address] 05/08/2025 11:00 AM EST Nurse Only [facility] [address] [place] [address] Unknown, MD Jose Manuel 06/25/2025 10:00 AM EST Office Visit [facility] 58 [place] [address] Susan Leon MD 15 [facility] Shailesh. [address] [place] [address] oJsephine Lin, PT 58 [place] [address] 07/28/2025 9:00 AM EST Telemedicine [facility] Department of Neurology [address] [place] [address], [address] [place] [address] Penny Bautista MD [address] [place] [phone] [email or web address]. [email or web address] 01/19/2026 9:30 AM EDT Office Visit [facility] [address] [place] [address] Brett Pan DO 22 [place] [address] 05/21/2026 10:00 AM EST Office Visit [facility] [place] [facility] [address] [place] [address] Susan Leon MD 15 [facility] Shailesh. [address] [place] [address] [email or web address] documented as of this encounter Visit Diagnoses [...] documented as of this encounter Care Teams Ship Washer Relationship Specialty Start Date End Date Susan Leon MD [address] [address] [email or web address] PCP - General Family Medicine 07/27/20 Susan Leon MD [address] [address] [email or web address] Insurance Assigned Provider 09/23/23 documented as of this encounter Additional Source Comments The information contained in this document represents components of the legal health record. It is not the complete legal health record.[facility]
--- OUTSIDE RECORDS SUMMARY | 2025-04-23 12:02 | XMS_ITS | Encounter Summary ---
Author Organization [facility] Address [address] [place] [address] Phone Care Team Providers Care Director Cardiac Name Role Phone Susan Leon MD Primary Care Provider [phone] Susan Leon MD Unavailable Encounter Details Date Type Department Care Team (Late st Contact Info) Description 09/18/2020 Procedure Pass [facility], [address] [address] Social History Tobacco Use Types Packs/Day Years Used Date Smoking Tobacco: Never Smokeless Tobacco: Never Comments:During age 18-21 li ght smoker Alcohol Use Standard Drinks/Week Comments Yes 7 (1 standard drink = 0.6 oz pur e alcohol) 1-2 glasses of wine per night Comments No Sex and Gender Information Value Date Recorded Sex Assigned at Female 07/01/2019 8:13 AM EST Legal Sex Female 5:19 PM EST Gender Identity Female 07/01/2019 8:13 AM EST Sexual Orientation Straight 07/01/2019 8: 13 AM EST documented as of this encounter Plan of Treatment Upcoming Encounters Date Type Department Care Team (Late st Contact Info) Description 04/24/2025 9:40 AM EST Telemedicine [facility] Department of Orthopaedic Surgery, Shoulder Service 52 [facility], [address] [place] [phone] Kaci Tomlinson, PAPrimoC [address] [place] [address] [place] [address] 05/08/2025 11:00 AM EST Nurse Only [facility] 22 [place] [address] Unknown, MD Jose Manuel 06/25/2025 10:00 AM EST Office Visit [facility] Rehabilitation Services 58 [place] [address] Susan Leon MD 15 [facility]. [address] [place] [address] Josephine Lin, PT 58 [place] [address] 07/28/2025 9:00 AM EST Telemedicine [facility] Department of Neurology [address] [place] [address], [address] [place] [address] Penny Bautista MD [address] [place] [address] [email or web address] 01/19/2026 9:30 AM EDT Office Visit [facility] [address] [place] [address] Brett Pan DO 22 [place] [address] 05/21/2026 10:00 AM EST Office Visit [facility] [place] [facility] 15 [facility] [address] [place] [address] Susan Leon MD 15 [facility]. [address] [place] [address] [email or web address] documented as of this encounter Visit Diagnoses [...] 1:21 AM EST CoV-Risk 03/25/2024 03/25/2024 04/05/2024 1:2 4 AM EDT CoV-Risk Comment:Per Ambulatory Triage Form 06/13/2024 06/13/202406/13 8:41 AM EST COVID-19 06/13/2024 06/13/2024 07/04/2024 1:21 AM EST CoV-Risk 08/07/2024 08/07/2024 08/18/2024 1:21 AM EST Assessment Noted Time PHQ-2 Depression Total Score: 0 08/20/19 7:54 AM EST documented as of this encounter Care Teams Director Cardiac Relationship Specialty Start Date End Date Susan Leon MD [address] [place] [address] [email or web address] PCP - General Family Medicine 07/27/20 Susan Leon MD [address] [address] [email or web address] Insurance Assigned Provider 09/23/23 documented as of this encounter Additional Source Comments The information contained in this document represents components of the legal health record. It is not the complete legal health record.[facility]
--- OUTSIDE RECORDS SUMMARY | 2025-04-23 12:02 | XMS_ITS | Encounter Summary ---
Author Organization [facility] Address [address] [place] [address] Phone Care Team Providers Care Enrollment Counselor Name Role Phone Susan Leon MD Primary Care Provider [phone] Susan Leon MD Unavailable Encounter Details Date Type Department Care Team (Late st Contact Info) Description 09/28/2020 Ancillary Orders [facility],Outside Imaging 30 [place] [address] System, Provider Not In, PhD Partners [address] [address] Social History Tobacco Use Types Packs/Day Years [...] Info) Description 04/24/2025 9:40 AM EST Telemedicine [facility] Department of Orthopaedic Surgery, Shoulder Service 52 [facility], [address] [place] [address] Kaci Tomlinson, PA-C [address] [place] [address] [place] [address] 05/08/2025 11:00 AM EST Nurse Only [facility] 22 [place] [address] Jose Manuel Richard MD 06/25/2025 10:00 AM EST Office Visit [facility] Rehabilitation Services [address] [place] [address] Susan Leon MD [address] [address] Josephine Lin, PT 58 [place] [address] 07/28/2025 9:00 AM EST Telemedicine [facility] Department of Neurology [address] [place] [address], [address] [place] [address] Penny Bautista MD [address] [place] [address] [email or web address] 01/19/2026 9:30 AM EDT Office Visit [facility] [address] [place] [address] Brett Pan DO 22 [place] [address] 05/21/2026 10:00 AM EST Office Visit [facility] [place] [facility] 15 [facility] [address] [place] [address] Susan Leon MD [address] [address] [email or web address] documented as of this encounter Results * Mammogram Outside (No Interpretation) (02/24/2015 12:00 AM EDT) Narrative SYSTEMGENERATED, DOCUMENTATION - 09/28/2020 1:16 PM EDT This study is for PACS [...] documented as of this encounter Care Teams Enrollment Counselor Relationship Specialty Start Date End Date Susan Leon MD [address] [address] [email or web address] PCP - General Family Medicine 07/27/20 Susan Leon MD [address] [address] Insurance Assigned Provider 09/23/23 documented as of this encounter Additional Source Comments The information contained in this document represents components of the legal health record. It is not the complete legal health record.[facility]
--- OUTSIDE RECORDS SUMMARY | 2025-04-23 12:02 | XMS_ITS | Encounter Summary ---
Author Organization [facility] Address [address] [place] [address] Phone Care Team Providers Care Nanny/Household Manager Name Role Phone Susan Leon MD Primary Care Provider [phone] Susan Leon MD Unavailable Encounter Details Date Type Department Care Team (Late st Contact Info) Description 02/22/2024 Ancillary Orders [facility] Department of Orthopaedic Surgery, Sports Medicine Service 52 [facility], [address] [place] [address] Juni Dai MD [address] [place] [address] [email or web address] Pain (Primary Dx) Social History Tobacco Use Types Packs/Day Years [...] Info) Description 04/24/2025 9:40 AM EST Telemedicine [facility] Department of Orthopaedic Surgery, Shoulder Service 52 [facility], [address] [place] [address] Kaci Tomlinson PA-C [address] [address] [email or web address] 05/08/2025 11:00 AM EST Nurse Only [facility] [address] [place] [address] Unknown, MD Jose Manuel 06/25/2025 10:00 AM EST [facility] 58 [place] [address] Susan Leon MD [address] [address] [email or web address] Josephine Lin, PT 58 [place] [address] 07/28/2025 9:00 AM EST Telemedicine [facility] Department of Neurology 55 [facility], [address] [place] [address], [address] [place] [address] Penny Bautista MD [address] [place] [address] [email or web address] 01/19/2026 9:30 AM EDT Office Visit [facility] [address] [place] [address] Brett Pan DO 22 [place] [address] 05/21/2026 10:00 AM EST Office Visit [facility] [place] [facility] 15 [facility] [address] [place] [address] Susan Leon MD [address] [address] [email or web address] documented as of this encounter Results * XR SHOULDER 2 VIEWS (LEFT) (02/22/2024 9:52 AM EDT) Anatomical Region Laterality Modality Shoulder Left Radiographic Rosa ging 02/22/2024 11:0 8 AM EDT Impressions 02/22/2024 11:23 AM EDT No acute osseous abnormality. Scattered degenerative changes as described above. Narrative 02/22/2024 11:23 AM EDT XR SHOULDER 2 OR MORE VIEWS (LEFT) Referring clinician's provided indication for this examination in [facility]: Pain COMPARISON: X-ray left shoulder performed on 08/22/2022. MRI left shoulder performed on 10/17/2022. FINDINGS: No acute fracture or dislocation. Anatomic alignment of the glenohumeral and AC joints. Normal variant coracoclavicular joint. There is osseous proliferative change along the undersurface of the acromion. The visualized left hemithorax is unremarkable. Procedure Note Vargas Manley, [facility] STEVE - 02/22/2024 XR SHOULDER 2 OR MORE VIEWS (LEFT) Referring clinician's provided indication for this examination in [facility]:Pain COMPARISON: X-ray left shoulder performed on 08/22/2022. MRI left shoulder performed on 10/17/2022. FINDINGS: No acute fracture or dislocation. Anatomic alignment of the glenohumeraland AC joints. Normal variant coracoclavicular joint. There is osseousproliferative change along the undersurface of the acromion. The visualized left hemithorax is unremarkable. IMPRESSION: No acute osseous abnormality. Scattered degenerative changes as described above. us Juni Dai MD IMG XR UPPER EXTREMITY Final Res ult documented in this encounter Visit Diagnoses Diagnosis Pain Generalized pain Pain- Primary Generalized pain documented in this encounter Additional Health Concerns Infection Onset Date Last Indicated Resolved Time CoV-Risk 03/25/2024 03/25/2024 04/05/2024 1:24 AM EDT CoV-Risk Comment:Per Ambulatory Triage Form 06/13/2024 06/13/202406/13 8:41 AM EST COVID-19 06/13/2024 06/13/2024 07/04/2024 1:21 AM EST CoV-Risk 08/07/2024 08/07/2024 08/18/2024 1:21 AM EST Assessment Noted Time PHQ-2 Depression Total Score: 0 08/20/19 7:54 AM EST documented as of this encounter Care Teams Nanny/Household Manager Relationship Specialty Start Date End Date Susan Leon MD [address] [address] PCP - General Family Medicine 07/27/20 Susan Leon MD [address] [address] Insurance Assigned Provider 09/23/23 documented as of this encounter Additional Source Comments The information contained in this document represents components of the legal health record. It is not the complete legal health record.[facility]
--- OUTSIDE RECORDS SUMMARY | 2025-04-23 12:02 | XMS_ITS | Encounter Summary ---
Author Organization [facility] Address [address] [place] [address] Phone Care Team Providers Care Staple Processing Machine Operator Name Role Phone Susan Leon MD Primary Care Provider [phone] Susan Leon MD Unavailable Encounter Details Date Type Department Care Team (Late st Contact Info) Description 09/28/2020 Ancillary Orders [facility],Outside Imaging 30 [place] [address] System, Provider Not In, [facility] [address] [address] Social History Tobacco Use Types Packs/Day Years [...] Info) Description 04/24/2025 9:40 AM EST Telemedicine [facility] Department of Orthopaedic Surgery, Shoulder Service 52 [facility], [address] [place] [address] Kaci Tomlinson, PA-C [address] [place] [address] [place] [address] 05/08/2025 11:00 AM EST Nurse Only [facility] [address] [place] [address] Jose Manuel Richard MD 06/25/2025 10:00 AM EST Office Visit [facility] 58 [place] [address] Susan Leon MD [address] [address] Josephine Lin, PT 58 [place] [address] 07/28/2025 9:00 AM EST Telemedicine [facility] Department of Neurology [address] [place] [address], [address] [place] [address] Penny Bautista MD [address] [place] [phone] [email or web address] 01/19/2026 9:30 AM EDT Office Visit [facility] [address] [place] [address] Brett Pan DO 22 [place] [address] 05/21/2026 10:00 AM EST Office Visit [facility] [place] [facility] 15 [facility] [address] [place] [address] Susan Leon MD [address] [address] [email or web address] documented as of this encounter Results * Mammogram Outside (No Interpretation) (10/19/2016 12:00 AM EDT) Narrative SYSTEMGENERATED, DOCUMENTATION - [...] documented as of this encounter Care Teams Staple Processing Machine Operator Relationship Specialty Start Date End Date Susan Leon MD [address] [address] [email or web address] PCP - General Family Medicine 07/27/20 Susan Leon MD [address] [address] [email or web address] Insurance Assigned Provider 09/23/23 documented as of this encounter Additional Source Comments The information contained in this document represents components of the legal health record. It is not the complete legal health record.[facility]
--- OUTSIDE RECORDS SUMMARY | 2025-04-23 12:02 | XMS_ITS | Encounter Summary ---
Author Organization [facility] Address [address] [facility] [address] [place] [address] Phone Care Team Providers Care Perinatal Social Worker Name Role Phone Susan Leon MD Primary Care Provider [phone] Susan Leon MD Unavailable Encounter Details Date Type Department Care Team (Latest Contact Info) Description 03/21/2022 Ancillary Orders [facility] Family Medicine [address] [place] [address] Susan Leon MD 15 [facility] [address]. 201 [place] [address] [email or web address] Breast cancer screening Social History Tobacco Use Types Packs/Day Years [...] high school, GED, job training, learning the American language, technical skills, or developing parenting skills)? [...] housing situation today? I have deborah askew 08/23/2021 How many times have you move [...] Info) Description 04/24/2025 9:40 AM EST Telemedicine [facility] Department of Orthopaedic Surgery, Shoulder Service 52 [facility], [address] [place] [address] Kaci Tomlinson, PA-C [address] [place] [address] [email or web address] 05/08/2025 11:00 AM EST Nurse Only [facility] [address] [place] [address] Unknown, Unknown, 06/25/2025 10:00 AM EST [facility] [address] [place] [address] Susan Leon MD 15 [facility] [address] [place] [address] Josephine Lin, PT 58 [place] [address] 07/28/2025 9:00 AM EST Telemedicine [facility] Department of Neurology [address] [place] [address], [address] [place] [address], [address] [place] [address] Penny Bautista MD [address] [place] [address] 720 [place] [address] [email or web address] 01/19/2026 9:30 AM EDT Office Visit [facility] 22 [place] [address] Brett Pan DO 22 [place] [address] 05/21/2026 10:00 AM EST Office Visit [facility] [place] [facility] 15 [facility] [address] [place] [address] Susan Leon MD 15 [facility] [address] [place] [address] [email or web address] documented as of this encounter Visit Diagnoses Diagnosis Breast cancer screening Breast screening, unspecified documented in this encounter Additional Health Concerns [...] documented as of this encounter Care Teams Perinatal Social Worker Relationship Specialty Start Date End Date Susan Leon MD [address] [address] [email or web address] PCP - General Family Medicine 07/27/20 Susan Leon MD [address] [address] [email or web address] Insurance Assigned Provider 09/23/23 documented as of this encounter Additional Source Comments The information contained in this document represents components of the legal health record. It is not the complete legal health record.[facility]
--- OUTSIDE RECORDS SUMMARY | 2025-04-23 12:02 | XMS_ITS | Encounter Summary ---
Author Organization [facility] Address [address] [facility] [place] [address] Phone Care Team Providers Care Fresh Foods Technician Name Role Phone Susan Leon MD Primary Care Provider [phone] Susan Leon MD Unavailable Encounter Details Date Type Department Care Team (Late st Contact Info) Description 09/28/2020 Ancillary Orders [facility],Outside Imaging 30 [place] [address] System, Provider Not In, [facility] [address] [address] Social History Tobacco Use Types Packs/Day Years [...] Info) Description 04/24/2025 9:40 AM EST Telemedicine [facility] Department of Orthopaedic Surgery, Shoulder Service 52 [facility], [address] [place] [address] Kaci Tomlinson, PA-C [address] [place] [address] [place] [address] 05/08/2025 11:00 AM EST Nurse Only [facility] [address] [place] [address] Jose Manuel Richard MD 06/25/2025 10:00 AM EST Office Visit [facility] Services 58 [place] [address] Susan Leon MD [address] [address] Josephine Lin, PT 58 [place] [address] 07/28/2025 9:00 AM EST Telemedicine [facility] Department of Neurology [address] [place] [address], [address] [place] [address] Penny Bautista MD [address] [place] [address] [email or web address] 01/19/2026 9:30 AM EDT Office Visit [facility] [address] [place] [address] Brett Pna DO 22 [place] [address] 05/21/2026 10:00 AM EST Office Visit [facility] [place] [facility] 15 [facility] [address] [place] [address] Susan Leon MD [address] [address] [email or web address] documented as of this encounter Results * Mammogram Outside (No Interpretation) (10/01/2018 12:00 AM EDT) Narrative SYSTEMGENERATED, DOCUMENTATION - 09/28/2020 1:15 PM EDT This study is for PACS [...] documented as of this encounter Care Teams Fresh Foods Technician Relationship Specialty Start Date End Date Susan Leon MD [address] [address] [email or web address] PCP - General Family Medicine 07/27/20 Susan Leon MD 15 [facility] 201 [place] [address] Insurance Assigned Provider 09/23/23 documented as of this encounter Additional Source Comments The information contained in this document represents components of the legal health record. It is not the complete legal health record.[facility]
--- OUTSIDE RECORDS SUMMARY | 2025-04-23 12:02 | XMS_ITS | Encounter Summary ---
Author Organization [facility] Address [address] [facility] [address] [place] [address] Phone Care Team Providers Care Ring Rolling Machine Operator Name Role Phone Susan Leon MD Primary Care Provider [phone] Susan Leon MD Unavailable Encounter Details Date Type Department Care Team (Latest Contact Info) Description 03/21/2022 Ancillary Orders [facility] Family Medicine [address] [place] [address] Susan Leon MD 15 [facility] [address] [place] [address] [email or web address] Breast cancer screening Social History Tobacco Use [...] high school, GED, job training, learning the Serbian language, technical skills, or developing parenting skills)? [...] of Orthopaedic Surgery, Shoulder Service 52 [facility], [address] [place] [address] Kaci Tomlinson, PA-C [address] [place] [address] [email or web address] 05/08/2025 11:00 AM EST Nurse Only [facility] [address] [place] [address] Unknown, Unknown, 06/25/2025 10:00 AM EST [facility] [address] [place] [address] Susan Leon MD 15 [facility] [address] [place] [address] Josephine Lin, PT 58 [place] [address] 07/28/2025 9:00 AM EST Telemedicine [facility] Department of Neurology [address] [place] [address], [address] [facility], [address] [place] [address] Penny Bautista MD [address] [place] [address] 720 [place] [address] [email or web address] 01/19/2026 9:30 AM EDT Office Visit [facility] 22 [place] [address] Brett Pan DO 22 [place] [address] 05/21/2026 10:00 AM EST Office Visit [facility] [place] [facility] 15 [facility] [address] [place] [address] Susan Leon MD 15 [facility] [address] [place] [address] [email or web address] documented as of this encounter Results * BI MAMMOGRAM SCREENING WITH TOMOSYNTHESIS WITH CAD (BILATERAL) (03/21/2022 2:39 PM EDT) Anatomical Region Laterality Modality Breast Left, Breast Right, Breast Bilateral Bila teral Mammography 03/21/2022 9:05 PM EDT Impressions 03/21/2022 9:11 PM EDT RIGHT BREAST: Negative, no specific mammographic evidence of malignancy. LEFT BREAST: Negative, no specific mammographic evidence of malignancy. Normal interval follow-up is recommended in 12 months. BI-RADS: BI-RADS CATEGORY: 1 - Negative. DENSITY: The breast tissue is heterogeneously dense, which could obscure a lesion on mammography. RIGHT RECOMMENDATION DUE DATE: No Follow Up Required Recommendation: Right No Follow Up Required LEFT RECOMMENDATION DUE DATE: 12 Months Recommendation: Left Mammography Screening Narrative 03/21/2022 9:11 PM EDT STUDY: BI MAMMOGRAM SCREENING WITH TOMOSYNTHESIS WITH CAD (BILATERAL) History: History of breast cancer in 1996, status post lumpectomy. Status post mastectomy in 2000. Breast reconstruction with TRAM flap in 2003. TECHNIQUE: Bilateral full-field digital screening mammography is obtained and read in conjunction with computer-aided detection. Tomosynthesis as well as 2-D C view imaging were obtained. COMPARISON: Comparison made to multiple prior, most recent left mammogram on October 26, 2020, and most remote January 28, 2011. BREAST COMPOSITION (left breast): The breast tissue is heterogeneously dense, which may obscure small masses. RIGHT BREAST: Status post mastectomy, followed by reconstruction with TRAM flap. LEFT BREAST: No significant masses, suspicious calcifications or other abnormalities are seen. Procedure Note Nils Cheney MD - 03/21/2022 STUDY: BI MAMMOGRAM SCREENING WITH TOMOSYNTHESIS WITH CAD (BILATERAL) History: History of breast cancer in 1996, status post lumpectomy. Statuspost mastectomy in 2000. Breast reconstruction with TRAM flap in 2003. TECHNIQUE: Bilateral full-field digital screening mammography is obtainedand read in conjunction with computer-aided detection. Tomosynthesis aswell as 2-D C view imaging were obtained. COMPARISON: Comparison made to multiple prior, most recent left mammogramon October 26, 2020, and most remote January 28, 2011. BREAST COMPOSITION (left breast): The breast tissue is heterogeneouslydense, which may obscure small masses. RIGHT BREAST: Status post mastectomy, followed by reconstruction with TRAMflap. LEFT BREAST: No significant masses, suspicious calcifications or otherabnormalities are seen. IMPRESSION: RIGHT BREAST: Negative, no specific mammographic evidence of malignancy. LEFT BREAST: Negative, no specific mammographic evidence of malignancy.Normal interval follow-up is recommended in 12 months. BI-RADS: BI-RADS CATEGORY: 1 - Negative. DENSITY: The breast tissue is heterogeneously dense, which could obscurea lesion on mammography. RIGHT RECOMMENDATION DUE DATE: No Follow Up Required Recommendation: Right No Follow Up Required LEFT RECOMMENDATION DUE DATE: 12 Months Recommendation: Left Mammography Screening Susan Leon MD IMG MG EXAMS Final Result documented in this encounter Visit Diagnoses Diagnosis Breast cancer screening Breast screening, unspecified Breast cancer screening Breast screening, unspecified documented [...] documented as of this encounter Care Teams Ring Rolling Machine Operator Relationship Specialty Start Date End Date Susan Leon MD [address] [place] [address] [email or web address] PCP - General Family Medicine 07/27/20 Susan Leon MD [address] [place] [address] [email or web address] Insurance Assigned Provider 09/23/23 documented as of this encounter Additional Source Comments The information contained in this document represents components of the legal health record. It is not the complete legal health record.[facility]
--- OUTSIDE RECORDS SUMMARY | 2025-04-23 12:03 | XMS_ITS | Encounter Summary ---
Author Organization [facility] Address [address] [facility] [address] [place] [address] Phone Care Team Providers Care Creping Machine Operator Helper Name Role Phone Susan Leon MD Primary Care Provider [phone] Susan Leon MD Unavailable Reason for Visit * Reason Onset Date Comments Appointment 01/28/2025 Injections Encounter Details Date Type Department Care Team (Late st Contact Info) Description 01/28/2025 Telephone [facility] [place] [facility] 15 [facility] [address] [place] [address] Susan Leon MD 15 [facility] [address] [place] [address] [email or web address] Appointment (Injections ) Social History Tobacco Use Types Packs/Day Years [...] housing situation today? I have deborah sing 01/11/2024 How many times have you move [...] AM EST documented as of this encounter Progress Notes * Penny Jimenez - 01/28/2025 8:32 AM EDT Pt called in stated that she has injection pt stated she needs to make monthly appt for the injections, please call and review with PT . Central Support Coordinate Measuring Equipment Operator (Please do not reply to this user; this inbox is not monitored.) Thank you. documented in this encounter Plan of Treatment Upcoming Encounters Date Type Department Care Team (Late st Contact Info) Description 04/24/2025 9:40 AM EST Telemedicine [facility] [place] Department of Orthopaedic Surgery, Shoulder Service 52 [facility], [address] [place] [address] Kaci Tomlinson PA-C [address] [place] [address] [email or web address] 05/08/2025 11:00 AM EST Nurse Only [facility] 22 [place] [address] Unknown, MD Jose Manuel 06/25/2025 10:00 AM EST Office Visit [facility] Services 58 [place] [address] Susan Leon MD 15 [facility] [address] [place] [address] [email or web address] Josephine Lin, PT 58 [place] [address] 07/28/2025 9:00 AM EST Telemedicine [facility] [place] of Neurology 55 [facility], [address] [place] [address], [address] [place] [address] Penny Bautista MD [address] [place] [address] 720 [place] [address] [email or web address] [email or web address]. [email or web address] 01/19/2026 9:30 AM EDT Office Visit [facility] 22 [place] [address] Brett Pan DO 22 [place] [address] 05/21/2026 10:00 AM EST Office Visit [facility] [place] [facility] [address] [address] Susan Leon MD [address] [address] documented as of this encounter Visit Diagnoses Not on filedocumented in this encounter Additional Health Concerns Assessment Noted Time PHQ-2 Depression Total Score: 0 08/20/19 21 7:54 AM EST documented as of this encounter Care Teams Creping Machine Operator Helper Relationship Specialty Start Date End Date Susan Leon MD [address] [address] PCP - General Family Medicine 07/27/20 Susan Leon MD [address] [address] Insurance Assigned Provider 09/23/23 documented as of this encounter Additional Source Comments The information contained in this document represents components of the legal health record. It is not the complete legal health record.[facility]
--- OUTSIDE RECORDS SUMMARY | 2025-04-23 12:03 | XMS_ITS | Encounter Summary ---
Author Organization [facility] Address [address] [place] [address] Phone Care Team Providers Care [employer] Worker Name Role Phone Susan Leon MD Primary Care Provider [phone] Susan Leon MD Unavailable Encounter Details Date Type Department Care Team (Late st Contact Info) Description 09/27/2023 Ancillary Orders [facility] [place] [facility] [address] [place] [address] Susan Leon MD [address] [facility] [address] [place] [address] [email or web address] Other screening mammogram (Primary Dx); Right hip pain; Irritable bowel syndrome with diarrhea; Other insomnia Social History Tobacco Use Types Packs/Day Years Used Date Smoking Tobacco: Never Smokeless Tobacco: Never Comments:[facility] [age] [facility] Alcohol Use Standard Drinks/Week Comments Yes [...] 08/23/2021 Digital Access Answer Date Recorded No 11/08/2022 No 11/08/2022 Reliable internet access at home? Not on file 11/08/2022 Device with a working camera? Not on file Intimate Partner Violence Answer Date R ecorded [...] Info) Description 04/24/2025 9:[address] [facility] Department of Orthopaedic Surgery, Shoulder Service [address], [address] [place] [address] Kaci Tomlinson PA-C [address] [address] [email or web address] 05/08/2025 11:00 AM EST Nurse Only [facility] [address] [place] [address] Unknown, MD Jose Manuel 06/25/2025 10:00 AM EST [facility] [address] [place] [address] Susan Leon MD [address] [address] [email or web address] Josephine Lin, PT [address] [place] [address] 07/28/2025 9:[address] [facility] Department of Neurology [address] [facility], [address] [place] [address], [address] [place] [address] Penny Bautista MD [address] [place] [phone] [email or web address] 01/19/2026 9:30 AM EDT Office Visit [facility] [address] [place] [address] Brett Pan DO 22 [place] [address] 05/21/2026 10:00 AM EST Office Visit [facility] [place] [facility] [address] [place] [address] Susan Leon MD [address] [facility] [address] [place] [address] [email or web address] documented as of this encounter Visit Diagnoses Diagnosis Other screening mammogram- Primary Right hip pain Pain in joint, pelvic region and thigh Irritable bowel syndrome with diarrhea Irritable bowel syndrome Other insomnia documented in this encounter Additional Health Concerns [...] documented as of this encounter Care Teams [employer] Worker Relationship Specialty Start Date End Date Susan Leon MD [address] [address] [email or web address] PCP - General Family Medicine 07/27/20 Susan Leon MD [address] [address] [email or web address] Insurance Assigned Provider 09/23/23 documented as of this encounter Additional Source Comments The information contained in this document represents components of the legal health record. It is not the complete legal health record.[facility]
--- OUTSIDE RECORDS SUMMARY | 2025-04-23 12:03 | XMS_ITS | Encounter Summary ---
Author Organization [facility] Address [address] [place] [address] Phone Care Team Providers Care Shaft Repairer Name Role Phone Susan Leon MD Primary Care Provider [phone] Susan Leon MD Unavailable Encounter Details Date Type Department Care Team (Late st Contact Info) Description 10/28/2021 Procedure [facility] [place] [address] Social History Tobacco Use Types Packs/Day Years Used Date Smoking Tobacco: Never Smokeless Tobacco: Never Alcohol Use Standard Drinks/Week Comments Yes 0 (1 standard drink = 0.6 oz pur e alcohol) 1-2 glasses of wine 3x a week Child or Family Care Answer Date Record ed Do you have problems with on e of the following making it difficult for you to work, study, or receive health care? No 08/23/2021 Education Answer Date Recorded Are you interested in help w ith more adult education (for example, completing high school, GED, job training, learning the [place] language, technical skills, or developing parenting skills)? [...] AM EST documented as of this encounter Functional Status * Calculated C-SSRS Risk Score (Lifetime/Recent) Answer Date of Assessment Author No Risk Indicated 10/28/2021 3:44 PM EDT Fred Maradiaga, WILFREDO * [place] Suicide Severity Rating Scale (Screener/Recent Self-Report) Question Answer Date of Assessment Author 1. Wish to be (Past 1 Month) No 10/28/2021 3:44 PM EDT Fred Maradiaga, WILFREDO 2. Non-Specific Active Suici tom Thoughts (Past 1 Month) No 10/28/2021 3:44 PM EDT Fred Maradiaga, RN 6. Suicidal Behavior (Lifetime) No 3:44 PM EDT Fred Maradiaga, RN documented as of this encounter Plan of Treatment Upcoming Encounters Date Type Department Care Team (Late st Contact Info) Description 04/24/2025 9:40 AM EST Telemedicine [facility] Department of Orthopaedic Surgery, Shoulder Service [address] [place] [address], [address] [place] [address] Kaci Tomlinson PA-C [address] [facility] [place] [address] [place] [phone] 05/08/2025 11:00 AM EST Nurse Only [facility] [address] [place] [address] Unknown, Jose Manuel, 06/25/2025 10:00 AM EST [facility] [address] [place] [address] Susan Leon MD [address] [address] Josephine Lin, PT [address] [place] [address] 07/28/2025 9:00 AM EST Telemedicine [facility] Department of Neurology [address] [place] [address], [address] [place] [address] Penny Bautista MD [address] [place] [phone] [email or web address] 01/19/2026 9:30 AM EDT Office Visit [facility] [address] [place] [address] Brett Pan DO 22 [place] [address] 05/21/2026 10:00 AM EST Office Visit [facility] [address] [address] Susan Leon MD [address] [address] documented as of this encounter Visit Diagnoses [...] documented as of this encounter Care Teams Shaft Repairer Relationship Specialty Start Date End Date Susan Leon MD [address] [address] [email or web address] [email or web address] - General Family Medicine 07/27/20 Susan Leon MD [address] [address] [email or web address] Assigned Provider 09/23/23 documented as of this encounter Additional Source Comments The information contained in this document represents components of the legal health record. It is not the complete legal health record.[facility]
--- OUTSIDE RECORDS SUMMARY | 2025-04-23 12:03 | XMS_ITS ---
Author Organization [facility] Address [address] [place] [address] Phone Care Team Providers Care Diagnostic Medical Sonographer Name Role Phone Susan Leon MD Primary Care Provider [phone] Susan Leon MD Unavailable Active Problems Problem Noted Date Diagnosed Date Neuropathy 01/29/2025 Aortic stenosis, moderate 04/24/2024 Assessment & Plan (04/24/2024 3:45 PM EST): Reviewed the etiology and pathogenesis of aortic stenosis. I do think that this is contributing to her symptoms of fatigue, shortness of breath, tachycardia and this possible diagnosis of cardiomegaly. I have placed a referral for her to be seen at [place] [facility], patient understands and agrees this plan of care. Cardiomegaly 04/24/2024 Dyspnea 04/03/2024 Assessment & Plan (08/08/2024 2:42 PM EST): Patient is feeling terrible, feels like she is just persistently been sick for months. She is suffering with cough and other URI symptoms none of which seem to be abating. We discussed getting a chest x-ray to rule out any sort of bacterial infection and symptomatic care. I do not see anything on exam that makes me concerned for something that needs antibiotics at this time. Patient really wants to know why she continues to get so sick and I discussed with her that at a point when she is starting to feel well we could do some more investigation if she wants however I suspect that this is just a run of bad luck for her. Assessment & Plan (04/03/2024 11:00 AM EDT): No indication at this point to cancel her trip, we will make a full decision after receiving her lab work results. Cardiac symptoms have been ongoing for about a year. PRN propranolol ordered for her palpitations and tachycardia. We will also get lab work to evaluate for CHF, though PE shows no edema and lungs sound clear. We will check for non-cardiac reasons for palpitations including thyroid. Referral placed for cardiology and order for ECHO placed. 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 She was also given prednisone in case of an exposure as Benadryl is unhelpful. Palmar wart 01/11/2024 Assessment & Plan (01/11/2024 5:11 PM EDT): Risks, benefits and alternatives of cryotherapy discussed with patient. Verbal consent obtained. 1 wart was frozen for two 10-second freeze-thaw cycles with liquid nitrogen. The patient tolerated the procedure well. Expected healing process and timeline was reviewed with the patient. The patient will call as needed to schedule an appointment for repeat cryotherapy in 2-4 weeks. Irritable bowel syndrome with diarrhea Assessment & Plan (07/17/2023 2:58 PM EST): Following up with GI and improved with diet and medication Other insomnia 07/17/2023 Assessment & Plan (07/17/2023 3:00 PM EST): We discussed use of medication up to 600 mg jayson, 6 mg melatonin, occ use of lorazepam. If needing the ativn more than 1-2 night then we will need to revisit to think aout other interventions Right hip pain 07/17/2023 Assessment & Plan (07/17/2023 3:01 PM EST): Without exam its a little difficult to ascertain, but given the provoking factor of sitting n a very specific couch, I presume there is some muscular componentwith possible impingement . 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 Discussed How to take zpak, IF not greatly improved in 48 hours will add prednisone burst. Atrophic vaginitis 12/01/2022 12/01/2022 Urinary incontinence 12/01/2022 12/01/2022 Dyspareunia 12/01/2022 12/01/2022 Stress incontinence 03/08/2022 Assessment & Plan (05/26/2022 10:12 AM EST): Suggested a trial of pelvic floor physical therapy. Patient is very interested in pursuing this. Assessment & Plan (03/08/2022 3:30 PM EDT): Consider pelvic floor PT, might also benefit from pessary vs orl medication. Will need in person eval. Other osteoporosis without current pathological fracture 01/07/2022 Assessment & Plan (01/29/2025 2:15 PM EDT): Discussed worsened osteo on last DEXA, I do agree with change in therapy, but have referred pt for second opinion Assessment & Plan (01/20/2025 9:01 AM EDT): She continues to take calcium vitamin D supplement she does weightbearing exercises she completed third infusion of zoledronic acid and she did have very good improvement in the spine but the hip decreased both at total hip and femoral neck. I calculated FRAX score to be 5.5 for hip fracture and she is considered to have very high risk of fracture. At this point I recommend using romosozumab injections monthly. I have requested nurse to obtain prior to rotation. CTX and procollagen were in good range despite the decrease in bone mineral density of the hip. I will request CTX, chemistry panel and procollagen levels for the follow-up visit in 1 year to be done fasting 2 weeks prior to the visit. Assessment & Plan (01/15/2024 8:49 AM EDT): The patient takes calcium with vitamin D. Approximately 600 mg of calcium plus she takes a multivitamin. She walks for exercise. She received her second zoledronic acid infusion in March 01, 2023. She is due for her third infusion in March 01, 2024. I have requested this. I will request basic comprehensive panel and CTX for the follow-up visit in 1 year. Assessment & Plan (01/11/2024 5:02 PM EDT): Takes Reclast yearly, managed by endocrinology. Assessment & Plan (12/30/2022 9:43 AM EDT): The patient continues with calcium and vitamin D supplements. She received Reclast 03/11/2022. She has agreed to resume therapy can in March 13, 2023. She should repeat DXA scan on 09/16/2023 at [facility]. The request has been placed. Assessment & Plan (04/27/2022 10:42 AM EST): The patient had an early visit. Unclear why but he was on the schedule. In any case he gives me the opportunity to explain why the patient would benefit from antiresorptive medications. Her latest DEXA scan did not show osteoporosis she was borderline with lumbar spine T score of -2.4. However her FRAX score for major osteoporotic fracture is 29% and anything above 20% is an indication for treatment. As for hip fracture the FRAX score was 6.4% and anything above 3% is an indication for treatment. In fact her hip FRAX score is quite high and this is the major location for fractures in the [place]. Even if she did not have an elevated FRAX score by definition she does have osteoporosis because she had multiple fragility fractures. She did receive Reclast IV administration on 03/11/2022 and although initially not symptomatic she did have flulike symptoms afterwards. She is not certain if she should continue using this medication. I did inform the patient that based on other patients I spoken to who had symptoms after use they state the second time around was better. Of course everyone is different and I cannot guarantee that this will be the same with. She should continue calcium and vitamin D supplementation. She already has a follow-up appointment on 12/07/2022 with me for review of osteoporosis and nontoxic multinodular goiter. She does have lab work that was requested on the last visit that should be done fasting first thing in the morning and she should do them 2 weeks prior to the visit to make sure that we have the results on hand. Assessment & Plan (03/08/2022 3:30 PM EDT): Bc of tamoxifen use, hx of fracture and borderline bone density is debating use of medication for osteo. I did recommend that pt move forward with treatment ( I recommended infusion therapy). Assessment & Plan (02/25/2022 10:45 AM EDT): The patient had history of osteoporosis in the past but her bone mineral density improved she is now in the osteopenic range. By definition she still has osteoporosis because she has had multiple fractures but even if she did and her FRAX score is elevated and she will benefit from antiresorptive medications. I did not find any secondary etiologies for osteoporosis, other than what is already listed in the HPI. At this point she is getting adequate calcium and vitamin D supplements. I suggested an antiresorptive medications and I discussed the bisphosphonates which reclast and alendronate. I explained that the Reclast is an IV infusion once yearly at the infusion center and this can be done to 3 years and is associated with flulike symptoms. The oral bisphosphonate has to be taken once weekly fasting and 1 must remain upright. This can be associated with GI symptoms. She will also benefit from Prolia. Prolia is a subcutaneous injection every 6 months and had to have studies compared to alendronate shows that he has greater bone mineral density production. The patient is inclined on using Prolia. I informed her with this medication she cannot miss injection otherwise the expected decrease in bone mineral density due to activation of osteoporosis of the medication. If she ever needs to come off the medication she needs to follow it up with oral alendronate for 1 to 3 months minimum. I reviewed that Denosumab (Prolia) is a q 6 month subcutaneous injection that has good bone density and fracture data. It s mechanism of action is as a monoclonal antibody directed against RANK ligand. It acts as an antiresorptive agent on the bones by suppressing formation of osteoclasts. It is indicated for osteoporosis in women and men, bony metastases in breast, prostate and other solid tumors, and is approved for aromatase inhibitor bone loss. Potential side effects include injection site pain and swelling (short lived), rash, infection, osteonecrosis of the jaw (5.2 out 10,000 patients) and possibly atypical femur fractures (0.8 out of 10,000). It is necessary to stay current with calcium and Vitamin D intake as hypocalcemia can develop. Labs were reviewed and there is no hypocalcemia. Denosumab ten year data has been presented and shows continued increases in BMD (lumbar spine 21.7% increase in BMD, and hip was 9.2% increase in BMD over 10 years) and continued fracture risk reduction (68% vertebral and hip, 40% non-vertebral, 20% for hip over a three year period) without significant increases in potential side effects. The patient has been instructed to call our office if any symptoms develop or if pain in the thigh develops. I have given the patient a leaflet on Prolia. I would like her to be treated and just process information and comfortable conclusion and she will repeat to proceed with this medication as opposed to the others. Assessment & Plan (01/07/2022 10:34 AM EDT): The patient has osteopenia based on DEXA scan at 1 point she did have osteoporosis with a lumbar spine T score of -2.5 but this improved. By definition the patient has osteoporosis because she has had fragility fractures. So she will benefit from therapy. But even if she did not have osteoporosis by definition her FRAX score is elevated with major osteoporotic fracture risk of 29 and risk for hip fracture of 6.4 so that means that she should receive antiresorptive medications. Her risk factors for osteoporosis include age, menopause, tamoxifen therapy, use of anticoagulants at for short period of time tobacco use for 2 years in the past. Use of SSRIs for short period of time, use of antiepileptics and at least 1 intra-articular corticosteroid injection. She is currently getting adequate calcium intake and supplements but she does not always take the calcium with food so it may not be absorbed. She does take a multivitamin she takes at the same time with the calcium so she cannot absorb more than 800 mg of calcium in 1 setting so she needs to take it in divided doses with food. This point I will check for secondary causes of osteoporosis. I will check 24 urine calcium, PTH, repeat vitamin D level check serum protein electrophoresis and I will repeat the comprehensive. Nontoxic multinodular goiter 01/07/2022 Assessment & Plan (01/20/2025 9:10 AM EDT): The left lobe nodule now measures 1.9 x 1.1 x 1.7 cm and has grown by 27 %/year over the last 2 years which is not considered significant. Therefore this nodule does not require repeat biopsy. Recall that it was previously biopsied and found to be benign. At this point typically we will repeat ultrasound 3 years later by 2027 but because there was growth we can repeat ultrasound in a year. Assessment & Plan (01/15/2024 8:50 AM EDT): The patient has a multinodular goiter due for repeat ultrasound by 11/16/2024 this ultrasound has been requested. Assessment & Plan (12/30/2022 9:16 AM EDT): Left lobe nodule previously biopsied is now smaller in size does not require repeat biopsy. She should repeat her ultrasound by 11/16/2024. If stable in 2 years then she should repeat ultrasound 3 years later by 2027. Assessment & Plan (04/27/2022 10:42 AM EST): Ultrasound previously requested for 11/16/2022 for monitoring of thyroid nodules. Assessment & Plan (02/25/2022 10:29 AM EDT): The patient has a nontoxic multinodular goiter without mid lobe nodule that was biopsied and found to be benign. At this point she needs to repeat the ultrasound in 1 year since that initial study which was on 11/16/2021. So I requested ultrasound for 11/16/2022. I informed the patient that if the nodule grows by 30% or more that is considered significant and she would need to repeat the biopsy. However if the nodule is stable in size or has grown less than 30% then we can continue doing serial ultrasound monitoring. If is stable she will repeat ultrasound 2 years later by 2024. Assuming continues to be stable then another 3 years 11/06/2027 and if he can remain stable stable another 5 years by 2032. Assessment & Plan (01/07/2022 10:30 AM EDT): Patient has a nontoxic multinodular goiter with a dominant nodule in the left lobe is TI-RADS 3 so this nodule should be biopsied. We will schedule the patient for 02/23/2022 and she will return for follow-up in 2 days for cytology report. I have informed the patient that multiple thyroid nodules are consistent with benign findings. In fact 95% of all thyroid nodules are benign. Normal TSH is also associated with benign findings. She is not aware of Satnam's thyroiditis and her family will check TPO antibodies for evaluation of Satnam's thyroiditis because this can be consistent with papillary thyroid carcinoma. Transient ischemic attack (TIA) 11/03/2021 Assessment & Plan (03/02/2022 1:36 PM EDT): Did see Dr Gaspar for follow up and has follow up scheduled in the winter. Assessment & Plan (11/03/2021 11:43 AM EDT): Sounds more like ocular migraine at this time, however, she is going to stay on therapeutics x 3 month per neuro and we will complete the work up with ECHO and bilat carotid US. Call if recurrence of sx or concerns. Hair loss disorder 08/23/2021 Assessment & Plan (08/25/2021 5:12 AM EST): I advised against spironolactone. Pt with low resting blood pressure, the addition of an Albeit mild anti hypertensive would like cause more orthostasis, additionally, do not want to increase bladder frequency in someone who is menopausal. Finasteride is a likely better option. Discussed risks and benefits potential side effects. Pt understands and agrees. 5 mg tab, 1/4 daily. Malaise and fatigue 02/11/2021 Assessment & Plan (02/11/2021 10:42 AM EDT): From a cardiac perspective, I think that she is cleared. Normal 30-day event monitor and echo. She agrees with this. Certainly, given her symptoms we will recheck for tickborne illness. I am also going to check an KATHERINE and sed rate. Her thyroid has been consistently normal and I do not think we need to recheck this. Stress may be a major factor in her symptoms. It is concerning to me that she is having these dreams about dying, this may be indicative of more anxiety then she really endorses. We have agreed to huslia back after lab work comes back. Atypical migraine 08/20/2020 Assessment & Plan (05/26/2022 10:12 AM EST): Will continue to follow w neurology. Episodes happening iwht increasing frequency, but clear plan with neurology at this time Assessment & Plan (08/20/2020 12:29 PM EST): These memory lapses really sound most c/w atypical migraine. If they were to become more frequent , change in severity or duration then I would encourage her to let me know and we would do more intensive follow up with Dr Pino. History of cancer of right breast 07/01/2019 Acid reflux Current Treatment and Therapy Plans No current plan information found. Other Current Plans ZOLEDRONIC ACID (RECLAST)* Plan Start Date:03/04/2024 Plan Provider:Brett Pan, Linked Problems Other osteoporosis without c urrent pathological fracture Treatment Medications No medications scheduled. Past Treatment and Therapy Plans Resolved Problems Problem Noted Date Diagnosed Date Resolved Date PONV (postoperative nausea and vomiting) 11/16/2021 12/01/2022 Thyroid nodule 11/03/2021 12/01/2022 Assessment & Plan (11/03/2021 11:43 AM EDT): Seen incidentally on CT scan Of head and neck. Follow up with ultrasound Traumatic incomplete tear of right rotator cuff 08/25/2021 12/01/2022 Assessment & Plan (11/03/2021 11:44 AM EDT): Upcoming surgery, pt advised to stop plavix 5 days prior, no other AC advised. Assessment & Plan (08/25/2021 5:19 AM EST): In my experience, a cortisone shot will last for 6-12 weeks for pain control. She would likely need to have another if she wants to make it through the whole summe without surgery. My concern is that she will get into the middle of summer and realize that she really should not wait ( pain control, atrophy, lmitation of activity) and then be stuck with a mid summer surgery which she really would not be able to do on the [place]. IF she were to get the surgery soon, she would be likely back to much of her normal activity by mid November, sling time is typically 3 weeks with significant limitations in the first 4-6 weeks, although in general I would expect 6 months for a full recovery. She wants to be able to garden and walk, enjoy her summer and I do think at the 12 week jayda it is likely she will be doing all of these things and I certainly can assist in setting up her PT on the [place]. 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 Also that I disagree w/[employer]'s assessment of when her HR is in exercise range but there are clear spikes of tachycardia and at our last visit she described these episodes as happening quite often, so she needs a Holter to be ruled out for arrhythmia. Pt in agreement with plan. Transient memory loss 07/01/20192022 Assessment & Plan (07/01/2019 1:16 PM EST): 64 yo F with remote h/o breast cancer (recent imaging shows CORINA), otherwise healthy, with possible anginal equivalent of daily chest pain/diaphoresis/tachycardia/dyspnea and two recent episodes of headache, nausea and memory loss concerning for possible TIA's. L temporal pain could also be c/w temporal arteritis although she has no other sx and this does not ever, to my knowledge, cause memory loss; check ESR/CRP, would start high dose steroids if elevated but not otherwise. Although her only risk factor for cardiovascular disease is moderate alcohol consumption (normal BP, reportedly normal lipids, no FHx early CAD, not obese, never smoker), at this age her sx are quite worrisome and I recommend a stress test. EKG done today shows NSR on my read. Will evaluate for stroke with MRI/MRA head/neck. Rx NTG and explained how to use this for chest pain episodes and when to elevate level of care. If she has another headache/memory impairment episode in the meantime I strongly recommend she proceed to the ED immediately and explained that TIAs can herald a true stroke, which can be small or large. Left temporal headache 07/01/201907/17 Assessment & Plan (07/15/2019 9:39 AM EST): Reassured pt again that nonspecific white matter changes are fairly common w/aging. If anything, these are most likely to be related to her ROW[place] which have previously been diagnosed as migraines. She should review this with the neurologist to whom she requested a referral, which is in process. Chest pain 07/01/2019 07/17/2023 Breast cancer 06/19/1996 07/01/2019 Overview (07/01/2019): s/p R lumpectomy & radiation x 5 [id number]; 2003 recurrence --> mastectomy & reconstruction, tamoxifen x 5 years. Also s/p BL oophorectomy. Mom had breast cancer too; pt is BrCa negative Polycystic ovarian syndrome 12/01/2022 Overview (07/01/2019): some spontaneous pregnancies; son was conceived via GIF
--- OUTSIDE RECORDS SUMMARY | 2025-04-23 12:03 | XMS_ITS | Encounter Summary ---
Author Organization [facility] Address [address] [place] [address] Phone Care Team Providers Care Franchise Manager Name Role Phone Susan Leon MD Primary Care Provider [phone] Susan Leon MD Unavailable Encounter Details Date Type Department Care Team (Late st Contact Info) Description 09/22/2022 Procedure Pass MRI, [facility] - [address], [address] [place] [address] Social History Tobacco Use Types Packs/Day Years [...] high school, GED, job training, learning the [place] language, technical skills, or developing parenting skills)? [...] Department of Orthopaedic Surgery, Shoulder Service [address], [address] [place] [address] Kaci Tomlinson, PAPrimoC [address] [place] [id number] [email or web address] 05/08/2025 11:00 AM EST Nurse Only [facility] [address] [place] [address] Unknown, Jose Manuel, 06/25/2025 10:00 AM EST Office Visit [facility] [address] [place] [address] Susan Leon MD [address] [facility] [address] [place] [address] [email or web address] Josephine Lin, PT [address] [place], [place] [id number] 07/28/2025 9:00 AM EST Telemedicine [facility] [place] Department of Neurology [address] [place] [address], [address], [address] [place] [address] Penny Bautista MD [address] [facility] [address] [place] [address] [email or web address]. [facility] 01/19/2026 9:30 AM EDT Office Visit [facility] [address] [place] [address] Brett Pan DO [address] [place] [address] [email or web address] 05/21/2026 10:00 AM EST Office Visit [facility] [address] [facility] [address] [place] [address] Susan Leon MD [address] [place] [phone] [email or web address] documented as of this encounter Visit Diagnoses [...] documented as of this encounter Care Teams Franchise Manager Relationship Specialty Start Date End Date Susan Leon MD 15 [facility]. [address] [place] [address] [email or web address] PCP - General Family Medicine 07/27/20 Susan Leon MD [address] [place] [address] [email or web address] Insurance Assigned Provider 09/23/23 documented as of this encounter Additional Source Comments The information contained in this document represents components of the legal health record. It is not the complete legal health record.[facility]
--- OUTSIDE RECORDS SUMMARY | 2025-04-23 12:03 | XMS_ITS | Clinical Summary ---
Author Organization [facility] Address [address] [facility] [address] [place] [phone] Phone Care Team Providers Care Wire Drawing Machine Tender Name Role Phone Susan Leon MD Primary Care Provider [phone] Susan Leon MD Unavailable Allergies Active Allergy Reactions Criticality Noted Date Comments Other 08/20/2020 Environmental: Lichen Penicillins Rash Low 04/14/2015 Sulfa (Sulfonamide Antibiotics) 01/29/2025 G6p d Medications Medication-Free Text Calcium 600 mg with D3 200 IU Active MV,CALCIUM,MIN/I SANTIAGO/FOLIC/VITK (MULTI FOR HER ORAL) Active folic acid (FOLVITE) 1 MG tablet Take 1 mg by mouth daily. Active TURMERIC ORAL Take by mouth. A ctive omega 0-gvg-stv-fish oil 1,000 mg (120 mg-180 mg) Cap Take 1 capsule by mouth daily. Active magnesium oxide 250 mg (150 mg elemental) Tab Take 250 mg by mouth daily. Active traZODone (DESYREL) 50 MG tabletIndication s:Other insomnia TAKE ONE TABLET BY MOUTH DAILY AT BEDTIME 90 tablet 3 5 Active Additional Information Patient not taking.Reported on 01/29/2025 minoxidiL (LONITEN) 2.5 MG tablet Take 1 tablet (2.5 mg total) by mouth daily. 90 tablet 3 Active atorvastatin (LIPITOR) 20 MG tablet Take 20 mg by mouth every evening. Active romosozumab-aqqg (EVENITY) 105 mg/1.17 mL subcutaneous syringeIndicatio ns:Other osteoporosis without current pathological fracture Inject 2.34 mL (210 mg total) under the skin every 30 (thirty) days. Active zinc sulfate (ZINC-15 ORAL) Take by mouth daily. Active Hospital, Clinic, or Other Facility Administered Medication Ordered Dose Route Frequency Start Date End Date Status romosozumab-aqqg (EVENITY) subcutaneous syringe multipack 210 mgIndications:Other osteoporosis without current pathological fracture 210 mg SubQ Every 30 days 01/22/2025 01/17/2026 Active Active Problems Problem Noted Date Diagnosed Date Neuropathy 01/29/2025 Aortic stenosis, moderate 04/24/2024 Assessment & Plan (04/24/2024 3:45 PM EST): Reviewed the etiology and pathogenesis of aortic stenosis. I do think that this is contributing to her symptoms of fatigue, shortness of breath, tachycardia and this possible diagnosis of cardiomegaly. I have placed a referral for her to be seen at [facility], patient understands and agrees this plan [...] as the most recent lichen exposure from [employer] caused angioedema that was treated with a [...] some muscular componentwith possible impingement . She option trader go back to PT to discuss Bronchitis [...] should repeat DXA scan on 09/16/2023 at [facility]. The request has been placed. Assessment & [...] she really endorses. We have agreed to grindstone back after lab work comes back. Atypical [...] cancer of right breast 07/01/2019 Acid reflux Resolved Problems Problem Noted Date Diagnosed Date [...] in setting up her PT on the [place]. 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 Also that I disagree w/Mauro's assessment of when her HR is in [...] s/p R lumpectomy & radiation x 5 [id number]; 2003 recurrence --> mastectomy & reconstruction, tamoxifen x 5 years. Also s/p BL oophorectomy. Mom had breast cancer too; pt is BrCa negative Polycystic ovarian syndrome 12/01/2022 Overview (07/01/2019): some spontaneous pregnancies; son was conceived via GIF Encounters Date Type Department Care Team Description 04/23/2025 Ancillary Orders [facility] [address] [place] [address] Matt Islas MD 04/21/2025 Hospital Encounter [facility] [address] [place] [address] Matt Islas MD Arrived 04/15/2025 12:00 PM EDT Office Visit [facility] Department of Orthopaedic Surgery, Shoulder Service [address] [place] [address], [address] [place] [address] Matt Islas MD Pain in joint of left shoulder (Primary Dx) 04/15/2025 11:44 AM EDT - 04/15/2025 11:59 PM EDT Hospital Encounter [facility] [address] [address] Matt Islas MD Discharge Disposition: Home or Self Care 04/15/2025 Orders Only [facility] Department of Orthopaedic Surgery, Shoulder Service [address] [facility], [address] [place] [address] Buddy Trujillo MA Pain (Primary Dx) 04/11/2025 Telephone [facility] [address] [place] [address] Luda Aguayo, WILFREDO Appointment (Prolia visits) 04/07/2025 10:30 AM EDT Nurse Only [facility] [address] [place] [address] Brett Pan, Other osteoporosis without current pathological fracture (Primary Dx) 03/10/2025 8:30 AM EDT Office Visit [facility] [address] [place] [address] Donna Hobbs NP Left hip pain (Primary Dx) 03/10/2025 8:21 AM EDT - 03/10/2025 11:59 PM EDT Hospital Encounter [facility], X-Ray - [address] [place] [address] Donna Hobbs NP Discharge Disposition: Home or Self Care 02/25/2025 10:30 AM EDT Nurse Only [facility] [address] [place] [address] [place] [address] Brett Pan, Other osteoporosis without current pathological fracture (Primary Dx) 02/14/2025 Telephone [facility] [address] [place] [address] [address] [place] [address] Susan Leon MD Immunizations (Covid booster) 01/29/2025 8:53 AM EDT - 01/29/2025 11:59 PM EDT Hospital Encounter [facility] [address] [place] [address] Susan Leon MD Discharge Disposition: Home or Self Care 01/29/2025 8:00 AM EDT Office Visit [facility] Primary [address] [place] [address] Susan eLon MD Medicare annual wellness visit, subsequent (Primary Dx); Neuropathy; Other osteoporosis without current pathological fracture 01/28/2025 Orders Only [facility] [address] [place] [address] [place] [address] Unknown, Unknown, 01/28/2025 Telephone [facility] [address] [place] [address] Susan Leon MD Appointment (Injections ) 01/22/2025 10:00 AM EDT Nurse Only [facility] [address] [place] [address] Brett Pan DO Other osteoporosis without current pathological fracture (Primary Dx) from Last 3 Months Immunizations Immunization Administration Dates Next Due COVID-19 (Pre-04/10) Pfizer Vaccine, mRNA, PF 09/09/2020,08/19/2020 INFLUENZA, SPLIT VIRUS, TRIV ALENT W/ PRESERVATIVE IM 04/14/2015 Influenza High-Dose Quadriva lent Preservative Free IM 03/13/2023,02/24/2022,03/09/2021,02/14 Influenza High-Dose Trivalen t Preservative Free IM 03/11/2024 Influenza Quadrivalent MDCK Preservative Free IM 04/06/2018 Influenza Quadrivalent Prese rvative Free IM 04/07/2017,04/04/2016 Influenza, Unspecified Formulation 03/07/2019 Pneumococcal conjugate PCV13 02/06/2019 Pneumococcal polysaccharide PPSV23 02/15/2020 RSV Vaccine (monovalent, adjuvanted) 07/17/2023 Tdap 11/19/2023,10/11/2021,11/19/2008 Zoster recombinant 08/23/2021,04/01/2021 Zoster unspecified formulation 07/22/2013 Family History Medical History Relation Comments Diabetes mellitus Father 36 Breast cancer Mother Coronary artery disease Sister 1 Diabetes Unspecified Hypertension Unspecified Stroke Neg Hx Relation Status Comments Father Mother Sister 1 Sister 2 G6PD deficiency Unspecified Social History Tobacco Use Types Packs/Day Years Used Date Smoking Tobacco: Never Passive Smoke Exposure: Past Smokeless Tobacco: Never Tobacco Cessation:Counseling Given: Not Answered Comments:During age 18-21 light smoker Alcohol Use Standard Drinks/Week Comments Yes [...] Orientation Straight 07/01/2019 8: 13 AM EST Last Filed Vital Signs Vital Sign Reading Time Taken Comments Blood Pressure 150/92 03/10/2025 8:19 AM EDT Pulse 86 03/10/2025 8:19 AM EDT Temperature 36.7 C (98 F) 03/10/2025 8:19 AM EDT Respiratory Rate 16 03/10/2025 8:19 AM EDT Oxygen Saturation 98% 03/10/2025 8:19 AM EDT Inhaled Oxygen Concentration - - Weight 65.6 kg (144 lb 9.6 oz) 01/29/2025 8:09 A M EDT Height 160 cm (5' 2.99 ) 01/29/2025 8:09 AM EDT Body Mass Index 25.62 01/29/2025 8:09 AM EDT Plan of Treatment Upcoming Encounters Date Type Department Care Team (Late st Contact Info) Description 04/24/2025 9:40 AM EST Telemedicine [facility] Department of Orthopaedic Surgery, Shoulder Service [address] [facility] [address], [address] [place] [address] Kaci Tomlinson, PA-C [address] [place] [address] [email or web address] 05/08/2025 11:00 AM EST Nurse Only [facility] [address] [place] [address] Unknown, Unknown, 06/25/2025 10:00 AM EST Office Visit [facility] [address] [place] [address] Susan Leon MD [address] [facility] [address] [place] [address] [email or web address] Josephine Lin, PT [address] [place] [address] 07/28/2025 9:00 AM EST Telemedicine [facility] Department of Neurology [address] [place] [address], [address], [address] [place] [address] Penny Bautista MD [address] [facility] [address] [place] [address] [email or web address] 01/19/2026 9:30 AM EDT Office Visit [facility] [address] [place] [address] Brett Pan DO [address] [place] [address] 05/21/2026 10:00 AM EST Office Visit [facility] [address] [facility] [address] [place] [address] Susan Leon MD [address] [facility] [address] [place] [address] [email or web address] Health Maintenance Due Date Last Done Comments COLOGUARD 1998 FIT TEST 1998 FOBT 1998 SIGMOIDOSCOPY 1998 VIRTUAL COLONOSCOPY 1998 COVID-19 VACCINE ( season) 2025 02/19/2025, 02/25/2024, 10/10/2023, Additional history exists MAMMOGRAM 09/26/2025 09/27/2023, 08/2021, 10/26/2020, Additional history exists DEPRESSION SCREENING 01/29/2026 01/29/2025 COLONOSCOPY 05/16/2027 12/05/2023, 01/26/2023 COLORECTAL CANCER SCREENING 05/16/2027 LIPID PANEL 01/14/2029 01/15/2024, 0 12/2021, 08/23/2021, Additional history exists Adult Td,Tdap Booster 11/18/2033 11/19/2023 , 10/11/2021, 11/19/2008 PNEUMOCOCCAL VACCINES (50+ years) Completed 02/15/2020, 02/06/2019 HEPATITIS C SCREENING Completed 03/29/2021, 021 ZOSTER VACCINES Completed 08/23/2021, 03/19, 07/22/2013 RSV VACCINE Completed 07/17/2023 OSTEOPOROSIS SCREENING INITIAL (ONE-TIME) Completed 10/17/2024, 12/30/2022, 09/15/2021 INFLUENZA VACCINE Completed 02/15/2025, , 03/13/2023, Additional history exists SMOKING STATUS SCREENING (Once After 26 Yrs) Completed 03/10/2025 HEPATITIS A VACCINES Aged Out No long er eligible based on patient's age to complete this topic HIB VACCINES Aged Out No longer eligi ble based on patient's age to complete this topic MENINGOCOCCAL VACCINES (ACWY) Aged Out No longer eligible based on patient's age to complete this topic MENINGOCOCCAL VACCINES (B) Aged Out N o longer eligible based on patient's age to complete this topic Medical Devices Implanted Type Area Bellman Device Identifier Shelf Expiration Date Model / Serial / Lot Kit [place] 5.5mm Suture Healicoil Regensorb Repair 3 Sutures Kt/3 - [id number] Implanted:Qty: 1 on 11/22/2021 by Juni Dai MD at [facility] Right: Shoulder GAO 04/29/2023 [id number] / / [id number] [place] Suture 5.Mm Healicoil Knotless Pk Self Tapping - [id number] Implanted:Qty: 1 on 11/22/2021 by Juni Dai MD at [facility] Right: Shoulder GAO 01/21/2023 [id number] / / [id number] System Proximal Tenodesis Implant Kit Bx/1ea - [id number] Implanted:Qty: 1 on 11/22/2021 by Juni Dai MD at [facility] Right: Shoulder ARTHREX 11/16/2025 [id number] / / [id number] Procedures Procedure Name Priority Date/Time Associated Diagnosis Comments MRI UPPER EXTREMITY OUTSIDE (NO INTERPRETATION) Routine 04/21/2025 12:00 AM EST XR SHOULDER 2 VIEWS (LEFT) Routine 04/15/2025 11:55 AM EDT Pain XR HIP 2 VW LEFT PLUS PELVIS Urgent/patient waiting 03/10/2025 8:42 AM EDT Left hip pain GLUCOSE Routine 01/29/2025 9:04 AM EDT VITAMIN B12 Routine 01/29/2025 9:04 AM EDT Neuropathy MAGNESIUM Routine 01/29/2025 9:04 AM EDT Neuropathy OUTSIDE LAB Routine 01/27/2025 11:22 AM EDT BD DXA MONITORING Routine 10/17/2024 5:1 5 PM EDT Other osteoporosis without current pathological fracture LIPID PANEL Routine 01/15/2024 7:26 AM EDT Transient ischemic attack (TIA) HM COLONOSCOPY FOR RESULT ENTRY ONLY Routine 12/05/2023 BI MAMMOGRAM SCREENING WITH TOMOSYNTHESIS WITH CAD (BILATERAL) Routine 09/27/2023 9:21 AM EDT Other screening mammogram HEPATITIS C ANTIBODY, QUALITATIVE Routine 03/29/2021 3:58 PM EDT Need for hepatitis C screening test from Last 3 Months or Most Recently Relevant to Health Maintenance Results * MRI Outside Upper Extremity (No Interpretation) (04/21/2025 12:00 AM EST) Narrative [facility] IMG INTERFACES - 04/23/2025 10:58 AM EST This study is for PACS storage only and not for interpretation. us Matt Islas MD IMG OUTSIDE IMAGING W/OUT I NTERPRETATION Final Result [facility] IMG INTERFACES * XR SHOULDER 2 VIEWS (LEFT) (04/15/2025 11:55 AM EDT) Anatomical Region Laterality Modality Shoulder Left Radiographic Rosa ging 04/15/2025 2:25 PM EDT Impressions 04/15/2025 3:31 PM EDT No fracture or dislocation. Stable mild degenerative changes as described above. ATTESTATION: I, Dr. Vargas Manley as teaching physician, have reviewed the images for this case and if necessary edited the report originally created by Vinod Nuñez. Narrative 04/15/2025 3:31 PM EDT XR SHOULDER 2 OR MORE VIEWS (LEFT) Referring clinician's provided indication for this examination in [facility]: Pain COMPARISON: XR SHOULDER 2 OR MORE VIEWS (LEFT) FINDINGS: No fracture. Normal glenohumeral alignment and joint space. Mild glenohumeral and AC joint degenerative change, not significantly changed since 02/22/2024. The visualized left hemithorax is unremarkable. Procedure [facility]25 XR SHOULDER 2 OR MORE VIEWS (LEFT) Referring clinician's provided indication for this examination in [facility]:Pain COMPARISON: XR SHOULDER 2 OR MORE VIEWS (LEFT) FINDINGS: No fracture. Normal glenohumeral alignment and joint space. Mildglenohumeral and AC joint degenerative change, not significantly changedsince 02/22/2024. The visualized left hemithorax is unremarkable. IMPRESSION: No fracture or dislocation. Stable mild degenerative changes as described above. ATTESTATION: I, Dr. Vargas Manley as teaching physician, have reviewedthe images for this case and if necessary edited the report originallycreated by Vinod Nuñez. Matt Islas MD IMG XR UPPER EXTREMITY Savana l Result * XR HIP 2 VW LEFT PLUS PELVIS (03/10/2025 8:42 AM EDT) Anatomical Region Laterality Modality Hip Left Computed Radiogr aphy 03/10/2025 9:10 AM EDT Impressions 03/10/2025 9:10 AM EDT No displaced fracture. Narrative 03/10/2025 9:10 AM EDT XR HIP 2 VW LEFT PLUS PELVIS Referring clinician's provided indication for this examination in [facility]: S/P Fall COMPARISON: CT ABDOMEN/PELVIS WITH CONTRAST FINDINGS: Pelvis: No displaced fracture. Intact sacroiliac joints and pubic symphysis. Frontal evaluation of the right hip demonstrates normal joint space. Left hip: No displaced fracture. Normal alignment. Normal joint space. Procedure Note Brett Umana MD - 03/10/2025 XR HIP 2 VW LEFT PLUS PELVIS Referring clinician's provided indication for this examination in [facility]:S/P Fall COMPARISON: CT ABDOMEN/PELVIS WITH CONTRAST FINDINGS: Pelvis: No displaced fracture. Intact sacroiliac joints and pubicsymphysis. Frontal evaluation of the right hip demonstrates normal jointspace. Left hip: No displaced fracture. Normal alignment. Normal joint space. IMPRESSION: No displaced fracture. us Donna Hobbs HOT [place]AM[place] MAN IMG XR PELVIS Final Resu lt * Magnesium (01/29/2025 9:04 AM EDT) MAGNESIUM 2.1 1.6 - 2.6 mg/dL [facility] Blood 01/29/2025 9:04 AM EDT 01/29/2025 9:09 AM EDT us Susan Leon MD LAB BLOOD BKR ORDERABLES Final R esult Performing Organization Address [facility] Co de Phone Number [address] [address] * Glucose (01/29/2025 9:04 AM EDT) GLUCOSE 92 70 - 99 mg/dL [facility] 01/29/2025 9:04 AM EDT 01/29/2025 9:09 AM EDT us Susan Leon MD LAB BLOOD BKR ORDERABLES Final R esult Performing Organization Address [facility]/ZIP Co de Phone Number [address] [place] [address] * Vitamin B12 (01/29/2025 9:04 AM EDT) VITAMIN B12 840 232 - 1,245 pg/mL [facility] Blood 01/29/2025 9:04 AM EDT 01/29/2025 9:09 AM EDT us Susan Leon MD LAB BLOOD BKR ORDERABLES Final R esult [facility] [address] [place] [address] * Outside Lab (01/27/2025 11:22 AM EDT) us Unknown Unknown LAB BLOOD BKR ORDERABLES Edit ed Result - Final * DXA Monitoring (10/17/2024 5:15 PM EDT) Anatomical Region Laterality Modality Bone Density Bone Density us Brett Pan DO IMG BD BONE DENSITY DEXA Final R esult * (ABNORMAL) Lipid panel (01/15/2024 7:26 AM EDT) HDL 104 mg/dL [facility] Comment: Interpretation <40 mg/dL: Low HDL cholesterol (major risk factor for CHD) Greater than or equal to 60 mg/dL: High HDL cholesterol ( negative risk factor for CHD) HDL - cholesterol is affected by a number of factors, e.g. smoking, excerise, hormones, sex and age. CHOLESTEROL 231 0 - 240 mg/dL [facility] TRIGLYCERIDES 70 30 - 160 mg/dL [facility] LDL 113 50 - 129 mg/dL [facility] Comment: LDL levels in terms of risk for coronary heart disease: <100 mg/dL: Optimal 100-129 mg/dL: Near or above optimal 130-159 mg/dL: Borderline high 160-189 mg/dL: High >190 mg/dL: Very High CARDIAC RISK RATIO 2.2(L) 3.3 - 4.4 [facility] Blood 01/15/2024 7:26 AM EDT 01/15/2024 7:30 AM EDT Karlacarlota Romero Shanna GARCÍA LAB BLOOD BKR ORDERABLES Final Result [facility] [address] [place] [address] * COLONOSCOPY FOR RESULT ENTRY ONLY (12/05/2023) Colonoscopy External Historical Provider HEALTH MAINTENANCE Final Result * BI MAMMOGRAM SCREENING WITH TOMOSYNTHESIS WITH CAD (BILATERAL) (09/27/2023 9:21 AM EDT) Anatomical Region Laterality Modality Breast Left, Breast Right, Breast Bilateral Bila teral Mammography 09/28/2023 7:26 PM EDT Impressions 09/28/2023 7:32 PM EDT No mammographic evidence of malignancy in the left breast. Annual left breast screening mammography is recommended. No mammographic evidence of malignancy in the right TRAM flap reconstruction. BI-RADS 1 NEGATIVE The patient will be notified of the results and recommendations. Narrative 09/28/2023 7:32 PM EDT BI MAMMOGRAM SCREENING WITH TOMOSYNTHESIS WITH CAD (BILATERAL) Additional patient information: Screening. History of right breast cancer status post mastectomy with TRAM flap reconstruction. COMPARISON: Comparison is made with relevant prior imaging. Breast composition: There are scattered areas of fibroglandular density. FINDINGS: There has been no change in the mammographic findings since previous examination. No abnormal masses, suspicious calcifications, or other significant findings are identified mammographically in either breast. Procedure Note Gautam Vasquez MD - 09/28/2023 BI MAMMOGRAM SCREENING WITH TOMOSYNTHESIS WITH CAD (BILATERAL) Additional patient information: Screening. History of right breast cancerstatus post mastectomy with TRAM flap reconstruction. COMPARISON: Comparison is made with relevant prior imaging. Breast composition: There are scattered areas of fibroglandular density. FINDINGS: There has been no change in the mammographic findings since previousexamination. No abnormal masses, suspicious calcifications, or other significantfindings are identified mammographically in either breast. IMPRESSION: No mammographic evidence of malignancy in the left breast. Annual left breast screening mammography is recommended. No mammographic evidence of malignancy in the right TRAM flapreconstruction. BI-RADS 1 NEGATIVE The patient will be notified of the results and recommendations. us Susan Leon MD IMG MG EXAMS Final Result * Hepatitis C antibody, qualitative (03/29/2021 3:58 PM EDT) HCV NON-REACTIV E NON-REACTI VE [facility] Blood 03/29/2021 3:58 PM EDT 03/29/2021 4:00 PM EDT us Susan Leon MD LAB BLOOD BKR ORDERABLES Final R esult [facility] [address] [place] [address] from Last 3 Months or Most Recently Relevant to Health Maintenance Insurance [employer] SUPPLEMENT MEDICARE PART A & B [employer] MEDEX SUPPLEMENT MEDICARE PART A & B [employer] MEDEX SUPPLEMENT MEDICARE PART A & B MEDEX SUPPLEMENT MEDICARE PART A & B [employer] MEDEX SUPPLEMENT MEDICARE PART A & B [employer] CR[employer] MEDEX SUPPLEMENT MEDICARE PART A & B [employer] MEDEX SUPPLEMENT MEDICARE PART A & B [employer] MEDEX SUPPLEMENT MEDICARE PART A & B MEDEX SUPPLEMENT MEDICARE PART A & B Advance Directives For more information, please contact: [phone] (9AM - 5PM [place], Monday-Monday) Documents on File Type Date Recorded Patient [facility] Shift Lead Expl anation Healthcare Proxy 08/20/2020 Healthcare Proxy 08/20/2020 Care Teams Wire Drawing Machine Tender Relationship Specialty Start Date End Date Susan Leon MD [address] [address] [email or web address] PCP - General Family Medicine 07/27/20 Susan Leon MD [address] [address] Insurance Assigned Provider 09/23/23 Additional Source Comments The information contained in this document represents components of the legal health record. It is not the complete legal health record.[facility]
--- OUTSIDE RECORDS SUMMARY | 2025-04-23 12:03 | XMS_ITS | Encounter Summary ---
Author Organization [facility] Address [address] [place] [address] Phone Care Team Providers Care Loan Collector Name Role Phone Susan Leon MD Primary Care Provider [phone] Susan Leon MD Unavailable Encounter Details Date Type Department Care Team (Late st Contact Info) Description 10/28/2021 Procedure Pass [facility] [place] [address] Social History Tobacco Use Types Packs/Day Years [...] high school, GED, job training, learning the Moroccan language, technical skills, or developing parenting skills)? [...] 3:44 PM EDT Fred Maradiaga, WILFREDO * [place] Suicide Severity Rating Scale (Screener/Recent Self-Report) Question [...] Info) Description 04/24/2025 9:40 AM EST Telemedicine [facility] Department of Orthopaedic Surgery, Shoulder Service [address] [place] [address], [address] [place] [address] Kaci Tomlinson PA-C 55 [facility] [address] [place] [address] 05/08/2025 11:00 AM EST Nurse Only [facility] [address] [place] [address] Unknown, Jose Manuel, 06/25/2025 10:00 AM EST [facility] 58 [place] [address] Susan Leon MD [address] [address] Josephine Lin, PT 58 [place] [address] 07/28/2025 9:00 AM EST Telemedicine [facility] Department of Neurology [address] [place] [address], [address] [place] [address] Penny Bautista MD [address] [place] [phone] [email or web address] 01/19/2026 9:30 AM EDT Office Visit [facility] [address] [place] [address] Brett Pan DO 22 [place] [address] 05/21/2026 10:00 AM EST Office Visit [facility] [address] [address] Susan Leon MD [address] [address] documented as of this encounter Visit Diagnoses [...] documented as of this encounter Care Teams Loan Collector Relationship Specialty Start Date End Date Susan Leon MD [address] [address] [email or web address] PCP - General Family Medicine 07/27/20 Susan Leon MD [address] [address] [email or web address] Insurance Assigned Provider 09/23/23 documented as of this encounter Additional Source Comments The information contained in this document represents components of the legal health record. It is not the complete legal health record.[facility]
--- OUTSIDE RECORDS SUMMARY | 2025-04-23 12:03 | XMS_ITS | Encounter Summary ---
Author Organization [facility] Address [address] [place] [address] Phone Care Team Providers Care Advertising Dispatch Clerks Supervisor Name Role Phone Susan Leon MD Primary Care Provider [phone] Susan Leon MD Unavailable Encounter Details Date Type Department Care Team (Late st Contact Info) Description 07/17/2023 Procedure Pass [facility], [address] [address] Social History Tobacco Use Types Packs/Day Years [...] high school, GED, job training, learning the [place] Islander language, technical skills, or developing parenting skills)? [...] [place] Department of Orthopaedic Surgery, Shoulder Service [address] [place] [address], [address] [place] [address] Kaci Tomlinson, PAPrimoC 55 [facility] [place] [address] 05/08/2025 11:00 AM EST Nurse Only [facility] [address] [place] [address] Unknown, MD Jose Manuel 06/25/2025 10:00 AM EST Office Visit [facility] 58 [place] [address] Susan Leon MD 15 [facility]. [address] [place] [address] Josephine Lin, PT 58 [place] [address] 07/28/2025 9:00 AM EST Telemedicine [facility] Department of Neurology [address] [place] [address], [address] [place] [address] Penny Bautista MD [address] [place] [phone] [email or web address] 01/19/2026 9:30 AM EDT Office Visit [facility] [address] [place] [address] Brett Pan DO 22 [place] [address] 05/21/2026 10:00 AM EST Office Visit [facility] [address] [place] [address] Susan Leon MD 15 [facility]. [address] [place] [address] [email or web address] documented as of this encounter Visit Diagnoses [...] documented as of this encounter Care Teams Advertising Dispatch Clerks Supervisor Relationship Specialty Start Date End Date Susan Leon MD [address] [address] [email or web address] PCP - General Family Medicine 07/27/20 Susan Leon MD [address] [address] [email or web address] Insurance Assigned Provider 09/23/23 documented as of this encounter Additional Source Comments The information contained in this document represents components of the legal health record. It is not the complete legal health record.[facility]
--- OUTSIDE RECORDS SUMMARY | 2025-04-23 12:03 | XMS_ITS | Encounter Summary ---
Author Organization [facility] Address [address] [place] [address] Phone Care Team Providers Care Manager Cardiac Name Role Phone Susan Leon MD Primary Care Provider [phone] Susan Leon MD Unavailable Encounter Details Date Type Department Care Team (Late st Contact Info) Description 09/27/2023 Ancillary Orders [facility] [address] [facility] [address] [place] [address] Susan Leon MD 15 [facility] Sh[place]. 201 [place] [address] [email or web address] Other screening mammogram (Primary Dx); Right hip pain; Irritable bowel syndrome with diarrhea; Other insomnia Social History Tobacco Use Types Packs/Day Years Used Date Smoking Tobacco: Never Smokeless Tobacco: Never Comments:During age [age] [facility] Alcohol Use Standard Drinks/Week Comments Yes [...] Info) Description 04/24/2025 9:40 AM EST Telemedicine [facility] Department of Orthopaedic Surgery, Shoulder Service 52 [facility], [address] [place] [address] Kaci Tomlinson PA-C [address] [address] [email or web address] 05/08/2025 11:00 AM EST Nurse Only [facility] [address] [place] [address] Unknown, MD Jose Manuel 06/25/2025 10:00 AM EST [facility] 58 [place] [address] Susan Leon MD [address] [address] [email or web address] Josephine Lin, PT 58 [place] [address] 07/28/2025 9:00 AM EST Telemedicine [facility] Department of Neurology 55 [facility], [address] [place] [address], [address] [place] [address] Penny Bautista MD [address] [place] [phone] [email or web address] 01/19/2026 9:30 AM EDT Office Visit [facility] 22 [place] [address] Brett Pan DO 22 [place] [address] 05/21/2026 10:00 AM EST Office Visit [facility] 15 [facility] [address] [place] [address] Susan Leon MD 15 [facility] [place]. [address] [place] [address] [email or web address] documented as of this encounter Results * [...] be notified of the results and recommendations. Susan Leon MD IMG MG EXAMS Final Result documented in this encounter Visit Diagnoses Diagnosis Other screening mammogram Other screening mammogram- Primary Right hip pain [...] documented as of this encounter Care Teams Manager Cardiac Relationship Specialty Start Date End Date Susan Leon MD [address] [place] [phone] [email or web address] PCP - General Family Medicine 07/27/20 Susan Leon MD [address] [address] [email or web address] Insurance Assigned Provider 09/23/23 documented as of this encounter Additional Source Comments The information contained in this document represents components of the legal health record. It is not the complete legal health record.[facility]
--- OUTSIDE RECORDS SUMMARY | 2025-04-23 12:03 | XMS_ITS | Encounter Summary ---
Author Organization [facility] Address [address] [place] [address] [place] [address] Phone Care Team Providers Care Athletic Turf Worker Name Role Phone Brett Wilson MD Primary Care Provider Unava ilable Susan Leon MD Primary Care Provider Yuliana Montez MD Primary Care Provider Susan Leon MD Primary Care Provider Susan Leon MD Unavailable Encounter Details Date Type Department Care Team (Latest Contact Info) Description 05/05/2017 Transcribe Orders [facility] [address] [place] [address] Deandre Orta MD [address] [address] [email or web address] Abdominal pain, epigastric (Primary Dx) Social History Tobacco Use Types Packs/Day Years Used Date Smoking Tobacco: Never Assessed Comments Unknown Sex and Gender Information Value Date Recorded Sex Assigned at Female 07/01/2019 8:13 AM EST Legal Sex Female 5:19 PM EST Gender Identity Female 07/01/2019 8:13 AM EST Sexual Orientation Straight 07/01/2019 8: 13 AM EST documented as of this encounter Plan of Treatment Upcoming Encounters Date Type Department Care Team (Late st Contact Info) Description 04/24/2025 9:40 AM EST Telemedicine [facility] Department of Orthopaedic Surgery, Shoulder Service [address], [address] [place] [address] Kaci Tomlinson PA-C [address] [address] [email or web address] 05/08/2025 11:00 AM EST Nurse Only [facility] [address] [place] [address] Unknown, MD Jose Manuel 06/25/2025 10:00 AM EST Office Visit [facility] 58 [place] [address] Susan Leon MD [address] [address] [email or web address] Josephine Lin, PT 58 [place] [address] 07/28/2025 9:00 AM EST Telemedicine [facility] Department of Neurology 55 [facility], [address] [place] [address], [address] [place] [address] Penny Bautista MD [address] [place] [phone] [email or web address] 01/19/2026 9:30 AM EDT Office Visit [facility] [address] [place] [address] Brett Pan DO 22 [place] [address] 05/21/2026 10:00 AM EST Office Visit [facility] [place] [facility] [address] [facility] [address] [place] [address] Susan Leon MD 15 [facility] Shailesh. 201 [place] [address] [email or web address] documented as of this encounter Results * (ABNORMAL) C-Reactive Protein (05/05/2017 8:34 AM EST) Pathologist [facility] C REACTIVE PROTEIN <0.0(L) 0 - 0.5 mg/L [facility] Blood 05/05/2017 8:34 AM EST 05/05/2017 8:38 AM EST us Deandre Orta MD LAB BLOOD BKR ORDERABLES Final Result [facility] [address] [place] [address] * CBC and differential (05/05/2017 8:34 AM EST) Pathologist [facility] WBC 5.80 3.40 - 11.20 K/uL [facility] RBC 4.09 3.80 - 4.80 M/uL [facility] HGB 12.5 12.0 - 15.0 g/dL [facility] HCT 38.1 36.0 - 46.0 % [facility] PLT 261 130 - 400 K/uL [facility] MCV 93.2 79.0 - 98.0 fL [facility] MCH 30.6 27.0 - 34.8 pg [facility] MCHC 32.8 31.5 - 36.0 g/dL [facility] RDW 11.6 10.8 - 14.6 % [facility] MPV 11.5 9.4 - 12.4 fl [facility] NRBC 0.00 /100 WBCs [facility] ABSOLUTE NRBC 0.00 K/uL [facility] DIFF METHOD Auto [facility] NEUTS 59.6 45.30 - 77.70 % [facility] LYMPHS 30.9 12.30 - 39.70 % [facility] MONOS 7.6 4.10 - 12.80 % [facility] EOS 1.0 0 - 7.2 % [facility] BASOS 0.7 0 - 2.80 % [facility] Granulocytes, immature (%) 0.2 0.0 - 0.9 % [facility] ABSOLUTE NEUTS 3.46 1.40 - 7.70 K/uL [facility] ABSOLUTE LYMPHS 1.79 0.60 - 3.20 K/uL [facility] ABSOLUTE MONOS 0.44 0.11 - 0.59 K/uL [facility] ABSOLUTE EOS 0.06 0.01 - 0.50 K/uL [facility] ABSOLUTE BASOS 0.04 0.00 - 0.08 K/uL [facility] Granulocytes, immature 0.01 0.00 - 0.05 K/uL [facility] Blood 05/05/2017 8:34 AM EST 05/05/2017 8:38 AM EST us Deandre Orta MD LAB BLOOD BKR ORDERABLES Final Result Performing Organization Address City/State/[facility] Co de Phone Number [facility] [address] [place] [address] documented in this encounter Visit Diagnoses Diagnosis Abdominal pain, epigastric- Primary documented in this encounter Additional Health Concerns Infection Onset Date Last Indicated Resolved Time CoV-Risk 01/27/2020 02/01/2020 02/15/2020 1:23 AM EDT CoV-Risk 01/04/2021 01/04/2021 01/14/2021 1:43 AM EDT [...] CoV-Risk 08/07/2024 08/07/2024 08/18/2024 1:21 AM EST documented as of this encounter Care Teams Athletic Turf Worker Relationship Specialty Start Date End Date Brett Wilson MD PCP - General Internal Medicine 06/24/16 04/24/19 Susan Leon MD [address] [place] [phone] [email or web address] PCP - General Family Medicine 04/25/19 06/26/19 Yuliana Montez MD [address] [place] [phone] [email or web address] PCP - General Family Medicine 06/27/19 07/26/20 Susan Leon MD [address] [place] [address] [email or web address] PCP - General Family Medicine 07/27/20 Susan Leon MD [address] [place] [phone] [email or web address] Insurance Assigned Provider 09/23/23 documented as of this encounter Additional Source Comments The information contained in this document represents components of the legal health record. It is not the complete legal health record.[facility]
--- OUTSIDE RECORDS SUMMARY | 2025-04-23 12:03 | XMS_ITS | Encounter Summary ---
Author Organization [facility] Address [address] [place] [address] Phone Care Team Providers Care Tipping Machine Operator Automatic Name Role Phone Susan Leon MD Primary Care Provider [phone] Susan Leon MD Unavailable Encounter Details Date Type Department Care Team (Late st Contact Info) Description 04/23/2025 Ancillary Orders [facility] 55 [place] [address] Matt Islas MD 55 [facility] [id number] [place] [address] [email or web address] Social History Tobacco Use Types Packs/Day Years [...] Info) Description 04/24/2025 9:40 AM EST Telemedicine [facility] Department of Orthopaedic Surgery, Shoulder Service [address], [address] [place] [address] Kaci Tomlinson PA-C [address] [address] [email or web address] 05/08/2025 11:00 AM EST Nurse Only [facility] [address] [place] [address] Unknown, MD Jose Manuel 06/25/2025 10:00 AM EST Office Visit [facility] 58 [place] [address] Susan Leon MD [address] [address] [email or web address] Josephine Lin, PT 58 [place] [address] 07/28/2025 9:00 AM EST Telemedicine [facility] Department of Neurology 55 [facility], [address] [place] [address], [address] [place] [address] Penny Bautista MD [address] [place] [phone] [email or web address] 01/19/2026 9:30 AM EDT Office Visit [facility] [address] [place] [address] Brett Pan DO 22 [place] [address] 05/21/2026 10:00 AM EST Office Visit [facility] [place] [facility] [address] [facility] [address] [place] [address] Susan Leon MD 15 [facility] Shailesh. [address] [place] [address] [email or web address] documented as of this encounter Results * MRI Outside Upper Extremity (No Interpretation) (04/21/2025 12:00 AM EST) Narrative [facility] IMG INTERFACES - 04/23/2025 10:58 AM EST This study is for PACS storage only and not for interpretation. us Matt Islas MD IMG OUTSIDE IMAGING W/OUT I NTERPRETATION Final Result [facility] IMG INTERFACES documented in this encounter Visit Diagnoses Not on filedocumented in this encounter Additional Health Concerns Assessment Noted Time PHQ-2 Depression Total Score: 0 01/30/20 25 2:16 PM EDT documented as of this encounter Care Teams Tipping Machine Operator Automatic Relationship Specialty Start Date End Date Susan Leon MD [address] [address] [email or web address] PCP - General Family Medicine 07/27/20 Susan Leon MD [address] [address] [email or web address] Insurance Assigned Provider 09/23/23 documented as of this encounter Additional Source Comments The information contained in this document represents components of the legal health record. It is not the complete legal health record.[facility]
--- OUTSIDE RECORDS SUMMARY | 2025-04-23 12:03 | XMS_ITS | Encounter Summary ---
Author Organization [facility] Address [address] [place] [address] Phone Care Team Providers Care Parts Chaser Name Role Phone Susan Leon MD Primary Care Provider [phone] Susan Leon MD Unavailable Encounter Details Date Type Department Care Team (Latest Contact Info) Description 12/05/2023 Transcribe Orders Virtual Department 30 [place] [address] Deandre Orta MD [address] [place] [address] Chemical gastritis (Primary Dx) Social History Tobacco Use Types [...] Info) Description 04/24/2025 9:40 AM EST Telemedicine [facility] Department of Orthopaedic Surgery, Shoulder Service [address] [place] [address], [address] [place] [phone] Kaci Tomlinson PA-C [address] [place] [address] [address] 05/08/2025 11:00 AM EST Nurse Only [facility] 22 [place] [address] Unknown, MD Jose Manuel 06/25/2025 10:00 AM EST [facility] 58 [place] [address] Susan Leon MD [address] [address] Josephine Lin, PT 58 [place] [address] 07/28/2025 9:00 AM EST Telemedicine [facility] Department of Neurology [address] [place] [address], [address] [place] [address] Penny Bautista MD [address] [place] [phone] [email or web address]. [email or web address] 01/19/2026 9:30 AM EDT Office Visit [facility] 22 [place] [address] Brett Pan DO 22 [place] [address] 05/21/2026 10:00 AM EST Office Visit [facility] [place] [facility] 15 [facility] [address] [place] [address] Susan Leon MD [address] [address] documented as of this encounter Results * US ABDOMEN LIMITED RIGHT UPPER QUADRANT (01/01/2024 8:38 AM EDT) Anatomical Region Laterality Modality Abdomen Ultrasound 01/01/2024 2:38 PM EDT Impressions 01/01/2024 2:41 PM EDT No abnormality demonstrated sonographically Narrative 01/01/2024 2:41 PM EDT US ABDOMEN LIMITED RIGHT UPPER QUADRANT Referring clinician's provided indication for this examination in [facility]: Outside Radiology Order; chemical gastritis TECHNIQUE: US Abdominal limited right upper quadrant. COMPARISON: CT ABDOMEN/PELVIS WITH CONTRAST FINDINGS: Liver: Normal echogenicity. No focal lesions. Main Portal Vein: Patent with normal direction of flow. Gallbladder: No gallstones or gallbladder wall thickening. Talbert's Sign: Negative. Biliary: No intrahepatic or extrahepatic biliary ductal dilatation. The common bile duct measures 6 mm. Right Kidney: No stones or hydronephrosis. Procedure Note Dasha Gtz MD - 01/01/2024 US ABDOMEN LIMITED RIGHT UPPER QUADRANT Referring clinician's provided indication for this examination in Epic:Outside Radiology Order; chemical gastritis TECHNIQUE: US Abdominal limited right upper quadrant. COMPARISON: CT ABDOMEN/PELVIS WITH CONTRAST FINDINGS: Liver: Normal echogenicity. No focal lesions. Main Portal Vein: Patent with normal direction of flow. Gallbladder: No gallstones or gallbladder wall thickening. Talbert's Sign: Negative. Biliary: No intrahepatic or extrahepatic biliary ductal dilatation. The common bile duct measures 6 mm. Right Kidney: No stones or hydronephrosis. IMPRESSION: No abnormality demonstrated sonographically Deandre Orta MD [facility] [place] ABDOMEN Final Result documented in this encounter Visit Diagnoses Diagnosis Chemical gastritis- Primary Chemical gastritis documented in this encounter Additional Health Concerns [...] documented as of this encounter Care Teams Parts Chaser Relationship Specialty Start Date End Date Susan Leon MD [address] [address] [email or web address] PCP - General Family Medicine 07/27/20 Susan Leon MD [address] [address] [email or web address] Insurance Assigned Provider 09/23/23 documented as of this encounter Additional Source Comments The information contained in this document represents components of the legal health record. It is not the complete legal health record.[facility]
--- OUTSIDE RECORDS SUMMARY | 2025-04-23 12:04 | XMS_ITS | Encounter Summary ---
Author Organization [facility] Address [address] [facility] [address] [facility] [address] [place] [address] Phone Care Team Providers Care Seat Cover Installer Name Role Phone Brett Wilson MD Primary Care Provider Unava ilable Susan Leon MD Primary Care Provider [phone] Yuliana Montez MD Primary Care Provider Susan Leon MD Primary Care Provider Susan Leon MD Unavailable Encounter Details Date Type Department Care Team (Late st Contact Info) Description 12/22/2017 Ancillary Orders [facility], X-Ray - [address] [place] [address] Kiara Rose, [facility] [address] [facility], [address] [place] [address] [email or web address] Pain Social History Tobacco Use Types Packs/Day Years [...] Description 04/24/2025 9:40 AM EST Telemedicine [facility] Department of Orthopaedic Surgery, Shoulder Service [address], [address] [place] [address] Kaci Tomlinson PA-C [address] [address] [email or web address] 05/08/2025 11:00 AM EST Nurse Only [facility] [address] [place] [address] Unknown, MD Jose [email or web address] 06/25/2025 10:00 AM EST Office Visit [facility] 58 [place] [address] Susan Leon MD [address] [address] [email or web address] Josephine Lin, PT 58 [place] [address] 07/28/2025 9:00 AM EST Telemedicine [facility] Department of Neurology 55 [facility], [address] [place] [address], [address] [place] [address] Penny Bautista MD [address] [place] [address] [email or web address] 01/19/2026 9:30 AM EDT Office Visit [facility] [address] [place] [address] Brett Pan DO 22 [place] [address] 05/21/2026 10:00 AM EST Office Visit [facility] [address] [facility] [address] [place] [address] Susan Leon MD 15 [facility] [address]ailesh[address] [place] [address] [email or web address] documented as of this encounter Visit Diagnoses Diagnosis Pain Generalized pain documented in this encounter Additional Health Concerns Infection Onset Date Last Indicated Resolved Time CoV-Risk 01/27/2020 02/01/2020 02/15/2020 1:23 AM EDT CoV-Risk 01/04/2021 01/04/2021 01/14/2021 1:43 AM EDT CoV-Exposed Comment:Recent close contact documented in the COVID-19 PCR/PRO order 06/14/2021 06/15/2021 07/09/2021 1:[address] CoV-Risk Comment:Per Ambulatory Triage Form 06/15/2021 06/18/202106/28 1:25 AM EST CoV-Presumed 06/16/2022 06/16/2022 07/07/2022 1:2 1 AM EST CoV-Risk 03/25/2024 03/25/2024 04/05/2024 1:24 AM EDT CoV-Risk Comment:Per Ambulatory Triage Form 06/13/2024 06/13/202406/13 8:41 AM EST COVID-19 06/13/2024 06/13/2024 07/04/2024 1:21 AM EST CoV-Risk 08/07/2024 08/07/2024 08/18/2024 1:21 AM EST documented as of this encounter Care Teams Seat Cover Installer Relationship Specialty Start Date End Date Brett Wilson MD PCP - General Internal Medicine 06/24/16 04/24/19 Susan Leon MD [address] [place] [address] [email or web address] PCP - General Family Medicine 04/25/19 06/26/19 Yuliana Montez MD [address] [place] [address] [email or web address] PCP - General Family Medicine 06/27/19 07/26/20 Susan Leon MD [address] [address] [email or web address] PCP - General Family Medicine 07/27/20 Susan Leon MD [address] [address] [email or web address] Insurance Assigned Provider 09/23/23 documented as of this encounter Additional Source Comments The information contained in this document represents components of the legal health record. It is not the complete legal health record.[facility]
--- OUTSIDE RECORDS SUMMARY | 2025-04-23 12:04 | XMS_ITS | Encounter Summary ---
Author Organization [facility] Address [address] [place] [address] Phone Care Team Providers Care Take Down Inspector Name Role Phone Susan Leon MD Primary Care Provider [phone] Susan Leon MD Unavailable Encounter Details Date Type Department Care Team (Late st Contact Info) Description 11/03/2021 Procedure Pass Echo Lab Will [address] [place] [address] Social History Tobacco Use Types Packs/Day Years [...] high school, GED, job training, learning the Wallisian language, technical skills, or developing parenting skills)? [...] Info) Description 04/24/2025 9:40 AM EST Telemedicine [facility] Department of Orthopaedic Surgery, Shoulder Service [address] [facility], [address] [place] [address] Kaci Tomlinson, PA-C [address] [place] [address] [email or web address] 05/08/2025 11:00 AM EST Nurse Only [facility] 22 [place] [address] Unknown, Unknown, 06/25/2025 10:00 AM EST Office Visit [facility] 58 [place] [address] Susan Leon MD 15 [facility] [address] [place] [address] Josephine Lin, PT 58 [place], [place] [phone] 07/28/2025 9:00 AM EST Telemedicine [facility] Department of Neurology [address] [place] [address], 8th [facility], [address] [place] [address] Penny Bautista MD 55 [facility] 720 [place] [address] [email or web address] 01/19/2026 9:30 AM EDT Office Visit [facility] 22 [place] [address] Brett Pan DO 22 [place] [address] [email or web address] 05/21/2026 10:00 AM EST Office Visit [facility] [address] [facility] [address] [place] [address] Susan Leon MD 15 [facility] [address]esh. [address] [place] [address] [email or web address] documented as of this encounter Visit Diagnoses [...] documented as of this encounter Care Teams Take Down Inspector Relationship Specialty Start Date End Date Susan Leon MD 15 [facility]. 201 [place] [address] [email or web address] PCP - General Family Medicine 07/27/20 Susan Leon MD [address] [place] [address] 201 [place] [address] [email or web address] Insurance Assigned Provider 09/23/23 documented as of this encounter Additional Source Comments The information contained in this document represents components of the legal health record. It is not the complete legal health record.[facility]
--- OUTSIDE RECORDS SUMMARY | 2025-04-23 12:04 | XMS_ITS | Encounter Summary ---
Author Organization [facility] Address [address] [place] [address] Phone Care Team Providers Care Bed Machine Operator Name Role Phone Yuliana Montez MD Primary Care Provider [phone] Susan Leon MD Primary Care Provider [phone] Susan Leon MD Unavailable Encounter Details Date Type Department Care Team (Late st Contact Info) Description 07/01/2019 Procedure Pass [address] [place] [address] Social History Tobacco Use Types Packs/Day Years Used Date Smoking Tobacco: Never Smokeless Tobacco: Never Alcohol Use Standard Drinks/Week Comments Yes 0 (1 standard drink = 0.6 oz pur e alcohol) 1-2 glasses of wine per night Comments Unknown Sex and Gender Information Value Date Recorded Sex Assigned at Female 07/01/2019 8:13 AM EST Legal Sex Female 5:19 PM EST Gender Identity Female 07/01/2019 8:13 AM EST Sexual Orientation Straight 07/01/2019 8: 13 AM EST documented as of this encounter Functional Status documented as of this encounter Plan of Treatment Upcoming Encounters Date Type Department Care Team (Late st Contact Info) Description 04/24/2025 9:40 AM EST Telemedicine [facility] Department of Orthopaedic Surgery, Shoulder Service [address] [facility], [address] [place] [address] Kaci Tomlinson, PA-C [address] [place] [address] [place] [address] 05/08/2025 11:00 AM EST Nurse Only [facility] [address] [place] [address] UnknownJose Manuel MD 06/25/2025 10:00 AM EST Office Visit [facility] 58 [place] [address] Susan Leon MD [address] [address] Josephine Lin, PT 58 [place] [address] 07/28/2025 9:00 AM EST Telemedicine [facility] Department of Neurology [address] [place] [address], [address] [place] [address] Penny Bautista MD [address] [place] [address] 720 [place] [address] [email or web address] 01/19/2026 9:30 AM EDT Office Visit [facility] [address] [place] [address] Brett Pan DO 22 [place] [address] 05/21/2026 10:00 AM EST Office Visit [facility] [place] [facility] [address] [place] [address] Susan Leon MD 15 [facility]. [address] [place] [address] [email or web address] documented as [...] Noted Time PHQ-2 Depression Total Score: 0 07/01/19 8:14 AM EST documented as of this encounter Care Teams Bed Machine Operator Relationship Specialty Start Date End Date Yuliana Montez MD [address] [place] [address] [email or web address] PCP - General Family Medicine 06/27/19 07/26/20 Susan Leon MD [address] [place] [address] [email or web address] PCP - General Family Medicine 07/27/20 Susan Leon MD [address] [place] [phone] Insurance Assigned Provider 09/23/23 documented as of this encounter Additional Source Comments The information contained in this document represents components of the legal health record. It is not the complete legal health record.[facility]
--- OUTSIDE RECORDS SUMMARY | 2025-04-23 12:04 | XMS_ITS | Encounter Summary ---
Author Organization [facility] Address [address] [facility] [address] [place] [address] Phone Care Team Providers Care Spanish Translator Name Role Phone Susan Leon MD Primary Care Provider [phone] Susan Leon MD Unavailable Reason for Visit * Reason Onset Date Comments Immunizations 02/14/2025 Covid booster Encounter Details Date Type Department Care Team (Late st Contact Info) Description 02/14/2025 Telephone [facility] [address] [facility] [address] [place] [address] Susan Leon MD 15 [facility] [address] [place] [address] [email or web address] Immunizations (Covid booster) Social History Tobacco Use Types Packs/Day Years [...] as of this encounter Progress Notes * Prema Tobias 02/14/2025 9:30 AM EDT Pt LVM on triage line wanting to know if we offer a Covid vaccine. Pt stated that she cannot get itat the pharmacy. Please contact and advise. Central [employer] (Please do not reply to this user; this inbox is not monitored.) Thank you. documented in this encounter Plan of Treatment Upcoming Encounters Date Type Department Care Team (Late st Contact Info) Description 04/24/2025 9:40 AM EST Telemedicine [facility] Department of Orthopaedic Surgery, Shoulder Service [address] [facility], [address] [place] [address] Kaci Tomlinson, NERIC [address] [place] [address] [email or web address] 05/08/2025 11:00 AM EST Nurse Only [facility] 22 [place] [address] Unknown, MD Jose Manuel 06/25/2025 10:00 AM EST Office Visit [facility] Rehabilitation Services 58 [place] [address] Susan Leon MD 15 [facility] [address] [place] [address] Josephine Lin, PT 58 [place] [address] 07/28/2025 9:00 AM EST Telemedicine [facility] Department of Neurology 55 [facility], [address]th [facility], [address] [place] [address] Penny Bautista MD [address] [place] [address] 720 [place] [address] [email or web address] 01/19/2026 9:30 AM EDT Office Visit [facility] 22 [place] [address] Brett Pan DO 22 [place] [address] 05/21/2026 10:00 AM EST Office Visit [facility] 15 [facility] 201 [place] [address] Susan Leon MD [address] [address] [email or web address] documented as of this encounter Visit Diagnoses Not on filedocumented in this encounter Additional Health Concerns Assessment Noted Time PHQ-2 Depression Total Score: 0 01/30/20 25 2:16 PM EDT documented as of this encounter Care Teams Spanish Translator Relationship Specialty Start Date End Date Susan Leon MD [address] [address] PCP - General Family Medicine 07/27/20 Susan Leon MD [address] [address] Insurance Assigned Provider 09/23/23 documented as of this encounter Additional Source Comments The information contained in this document represents components of the legal health record. It is not the complete legal health record.[facility]
--- OUTSIDE RECORDS SUMMARY | 2025-04-23 12:04 | XMS_ITS | Encounter Summary ---
Author Organization [facility] Address [address] [place] [address] Phone Care Team Providers Care Adoption Agent Name Role Phone Susan Leon MD Primary Care Provider [phone] Susan Leon MD Unavailable Encounter Details Date Type Department Care Team (Late st Contact Info) Description 04/15/2025 Orders Only [facility] Department of Orthopaedic Surgery, Shoulder Service 52 Count Includes [facility], [address] [place] [phone] [address], [place] [address] [email or web address] Pain (Primary Dx) Social History Tobacco Use [...] 04/24/2025 9:40 AM EST Telemedicine [facility] Department of Orthopaedic Surgery, Shoulder Service 52 Count Includes [facility], [address] [place] [address] Kaci Tomlinson PA-C [address] [address] [email or web address] 05/08/2025 11:00 AM EST Nurse Only [facility] [address] [place] [address] Jose Manuel, MD Jose Manuel 06/25/2025 10:00 AM EST Office Visit [facility] Rehabilitation Services 58 [place] [address] Susan Leon MD [address] [address] [email or web address] Josephine Lin, PT 58 [place] [address] 07/28/2025 9:00 AM EST Telemedicine [facility] Department of Neurology [address] [place] [address], [address] [place] [address], [address] [place] [address] Penny Bautista MD [address] [place] [address] [email or web address] 01/19/2026 9:30 AM EDT Office Visit [facility] [address] [place] [address] Brett Pan DO 22 [place] [address] 05/21/2026 10:00 AM EST Office Visit [facility] [place] [facility] [address] [address] Susan Leon MD 15 [facility] Shailesh. [address] [place] [address] [email or web address] documented as of this encounter Results * XR SHOULDER 2 VIEWS (LEFT) (04/15/2025 11:55 AM EDT) Anatomical Region Laterality Modality Shoulder Left Radiographic Rosa ging 04/15/2025 2:25 PM EDT Impressions 04/15/2025 3:31 PM EDT No fracture or dislocation. Stable mild degenerative changes as described above. ATTESTATION: Dr. Vargas Lockwood as teaching physician, have reviewed the images for this case and if necessary edited the report originally created by Vinod Nuñez. Narrative 04/15/2025 3:31 PM EDT XR SHOULDER 2 OR MORE VIEWS (LEFT) Referring clinician's provided indication for this examination in [facility]: Pain COMPARISON: XR SHOULDER 2 OR MORE VIEWS (LEFT) FINDINGS: No fracture. Normal glenohumeral alignment and joint space. Mild glenohumeral and AC joint degenerative change, not significantly changed since 02/22/2024. The visualized left hemithorax is unremarkable. Procedure [facility]/2025 XR SHOULDER 2 OR MORE VIEWS (LEFT) Referring clinician's provided indication for this examination in [facility]:Pain COMPARISON: XR SHOULDER 2 OR MORE VIEWS (LEFT) FINDINGS: No fracture. Normal glenohumeral alignment and joint space. Mildglenohumeral and AC joint degenerative change, not significantly changedsince 02/22/2024. The visualized left hemithorax is unremarkable. IMPRESSION: No fracture or dislocation. Stable mild degenerative changes as described above. ATTESTATION: Dr. Vargas Lockwood as teaching physician, have reviewedthe images for this case and if necessary edited the report originallycreated by Vinod Nuñez. us Matt MCDONOUGHG XR UPPER EXTREMITY Savana l Result documented in this encounter Visit Diagnoses Diagnosis Pain- Primary Generalized pain Pain Generalized pain documented in this encounter Additional Health Concerns Assessment Noted Time PHQ-2 Depression Total Score: 0 01/30/20 25 2:16 PM EDT documented as of this encounter Care Teams Adoption Agent Relationship Specialty Start Date End Date Susan Leon MD [address] [address] [email or web address] PCP - General Family Medicine 07/27/20 Susan Leon MD [address] [address] [email or web address] Insurance Assigned Provider 09/23/23 documented as of this encounter Additional Source Comments The information contained in this document represents components of the legal health record. It is not the complete legal health record.[facility]
--- OUTSIDE RECORDS SUMMARY | 2025-04-23 12:04 | XMS_ITS | Encounter Summary ---
Author Organization [facility] Address [address] [facility] [address] [place] [address] Phone Care Team Providers Care Character Impersonator Name Role Phone Brett [place] MD Primary Care Provider Unava ilable Susan Leon MD Primary Care Provider [phone] Yuliana Montez MD Primary Care Provider [phone] Susan Leon MD Primary Care Provider Susan Leon MD Unavailable Encounter Details Date Type Department Care Team (Late st Contact Info) Description 10/02/2018 Ancillary Orders [facility] [address] [address] Kiara Rose, CONTOUR GRINDER [address] [facility], [address] [place] [address] [email or web address] Social History Tobacco Use Types Packs/Day Years [...] Info) Description 04/24/2025 9:40 AM EST Telemedicine [facility] Department of Orthopaedic Surgery, Shoulder Service [address] [place] [address], [address] [place] [address] Kaci Tomlinson PA-C [address] [place] [address] [email or web address] 05/08/2025 11:00 AM EST Nurse Only [facility] [address] [place] [address] Unknown, MD Jose Manuel 06/25/2025 10:00 AM EST Office Visit [facility] Services 58 [place] [address] Susan Leon MD [address] [address] [email or web address] Josephine Lin, PT 58 [place] [address] 07/28/2025 9:00 AM EST Telemedicine [facility] Department of Neurology [address] [facility], [address] [place] [address], [address] [place] [address] Penny Bautista MD [address] [place] [address] [email or web address] 01/19/2026 9:30 AM EDT Office Visit [facility] [address] [place] [address] Brett Pan DO 22 [place] [address] 05/21/2026 10:00 AM EST Office Visit [facility] [place] [facility] [address] [facility] [address] [place] [address] Susan Leon MD 15 [facility] [address]ailesh[address] [place] [address] [email or web address] documented as of this encounter Visit Diagnoses [...] documented as of this encounter Care Teams Character Impersonator Relationship Specialty Start Date End Date Brett Wilson MD PCP - General Internal Medicine 06/24/16 04/24/19 Susan Leon MD [address] [place] [address] [email or web address] PCP - General Family Medicine 04/25/19 06/26/19 Yuliana Montez MD [address] [place] [address] [email or web address] PCP - General Family Medicine 06/27/19 07/26/20 Susan Leon MD [address] [address] [email or web address] PCP - General Family Medicine 07/27/20 Susan Leon MD [address] [address] [email or web address] Insurance Assigned Provider 09/23/23 documented as of this encounter Additional Source Comments The information contained in this document represents components of the legal health record. It is not the complete legal health record.[facility]
--- OUTSIDE RECORDS SUMMARY | 2025-04-23 12:04 | XMS_ITS | Encounter Summary ---
Author Organization [facility] Address [address] [place] [address] Phone Care Team Providers Care Electricians Top Helper Name Role Phone Susan Leon MD Primary Care Provider [phone] Susan Leon MD Unavailable Encounter Details Date Type Department Care Team (Late st Contact Info) Description 04/03/2024 Procedure Pass [facility] 30 [place] [address] Social History Tobacco Use Types Packs/Day Years [...] Description 04/24/2025 9:40 AM EST Telemedicine [facility] Department of Orthopaedic Surgery, Shoulder Service [address] [facility], [address] [place] [address] Kaci Tomlinson PAPrimoC [address] [place] [address] 05/08/2025 11:00 AM EST Nurse Only [facility] [address] [place] [address] Jose Manuel Richard MD 06/25/2025 10:00 AM EST Office Visit [facility] 58 [place] [address] Susan Leon MD 15 [facility]. [address] [place] [address] Josephine Lin, PT 58 [place] [address] 07/28/2025 9:00 AM EST Telemedicine [facility] Department of Neurology [address] [place] [address], [address] [place] [address], [address] [place] [address] Penny Bautista MD 55 [facility] 720 [place] [address] [email or web address]. [email or web address] 01/19/2026 9:30 AM EDT Office Visit [facility] [address] [place] [address] Brett Pan DO 22 [place] [address] 05/21/2026 10:00 AM EST Office Visit [facility] [address] [place] [address] Susan Leon MD 15 [facility]. [address] [place] [address] [email or web address] documented as [...] documented as of this encounter Care Teams Electricians Top Helper Relationship Specialty Start Date End Date Susan Leon MD [address] [place] [phone] [email or web address] PCP - General Family Medicine 07/27/20 Susan Leon MD [address] [place] [phone] Insurance Assigned Provider 09/23/23 documented as of this encounter Additional Source Comments The information contained in this document represents components of the legal health record. It is not the complete legal health record.[facility]
--- OUTSIDE RECORDS SUMMARY | 2025-04-23 12:04 | XMS_ITS | Encounter Summary ---
Author Organization [facility] Address [address] [facility] [place] [address] Phone Care Team Providers Care Voice Network Administrator Name Role Phone Brett Wilson MD Primary Care Provider Unava ilable Susan Leon MD Primary Care Provider Yuliana Montez MD Primary Care Provider Susan Leon MD Primary Care Provider [phone] Susan Leon MD Unavailable Encounter Details Date Type Department Care Team (Late st Contact Info) Description 12/22/2017 Ancillary Orders [facility], X-Ray - [address] [place] [address] Surjit Edwards MD [address] [place] [phone] [email or web address] Pain Social History Tobacco Use Types Packs/Day [...] Info) Description 04/24/2025 9:40 AM EST Telemedicine [facility] Department of Orthopaedic Surgery, Shoulder Service [address] [place] [address] [address] [place] [address] Kaci Tomlinson PA-C [address] [address] 05/08/2025 11:00 AM EST Nurse Only [facility] [address] [place] [address] Unknown, MD Jose Manuel 06/25/2025 10:00 AM EST Office Visit [facility] 58 [place] [address] Susan Leon MD [address] [address] [email or web address] Josephine Lin, PT 58 [place] [address] 07/28/2025 9:00 AM EST Telemedicine [facility] Department of Neurology 55 [facility], [address] [place] [address], [address] [place] [address] Penny Bautista MD [address] [place] [address] [email or web address] 01/19/2026 9:30 AM EDT Office Visit [facility] [address] [place] [address] Brett Pan DO 22 [place] [address] 05/21/2026 10:00 AM EST Office Visit [facility] [place] [facility] [address] [facility] [address] [place] [address] Susan Leon MD 15 [facility] Shailesh. 201 [place] [address] [email or web address] documented as of this encounter Results * XR FOOT 3 OR MORE VIEWS (LEFT) (12/22/2017 7:23 PM EDT) Anatomical Region Laterality Modality Foot Left Radiographic Rosa ging 12/22/2017 8:31 PM EDT Impressions 12/22/2017 8:37 PM EDT Nondisplaced intra-articular fracture at the base of the second proximal phalanx. POS - [id number] Narrative 12/22/2017 8:37 PM EDT HISTORY: Pain, swelling, and bruising of second digit. COMPARISON: None FINDINGS: 3 views of the left foot are performed. There is a nondisplaced intra-articular fracture at the medial base of the second proximal phalanx. No additional definite fracture. Minor joint space narrowing and spurring at the first MTP joint from degenerative change. No destructive bone lesion. Plantar calcaneal spur. Procedure Note Cornelia Piña MD - 12/22/2017 HISTORY: Pain, swelling, and bruising of second digit. COMPARISON: None FINDINGS: 3 views of the left foot are performed. There is a nondisplaced intra-articular fracture at the medial base of thesecond proximal phalanx. No additional definite fracture. Minor jointspace narrowing and spurring at the first MTP joint from degenerativechange. No destructive bone lesion. Plantar calcaneal spur. IMPRESSION: Nondisplaced intra-articular fracture at the base of the second proximalphalanx. POS - [id number] Surjit Edwards MD IMG XR LOWER EXTREMITY Final Result documented in this encounter Visit Diagnoses Diagnosis Pain Generalized pain Pain Generalized pain documented in [...] documented as of this encounter Care Teams Voice Network Administrator Relationship Specialty Start Date End Date Brett Wilson MD PCP - General Internal Medicine 06/24/16 04/24/19 Susan Leon MD [address] [place] [phone] [email or web address] PCP - General Family Medicine 04/25/19 06/26/19 Yuliana Montez MD [address] [place] [phone] [email or web address] PCP - General Family Medicine 06/27/19 07/26/20 Susan Leon MD [address] [place] [address] [email or web address] PCP - General Family Medicine 07/27/20 Susan Leon MD [address] [place] [phone] [email or web address] Insurance Assigned Provider 09/23/23 documented as of this encounter Additional Source Comments The information contained in this document represents components of the legal health record. It is not the complete legal health record.[facility]
--- OUTSIDE RECORDS SUMMARY | 2025-04-23 12:04 | XMS_ITS | Encounter Summary ---
Author Organization [facility] Address [address] [place] [address] [place] [phone] Phone Care Team Providers Care Rheumatologist Name Role Phone Yuliana Montez MD Primary Care Provider [phone] Susan Leon MD Primary Care Provider [phone] Susan Leon MD Unavailable Encounter Details Date Type Department Care Team (Late st Contact Info) Description 07/01/2019 Procedure Pass [address] [place] [address] Social History Tobacco Use Types Packs/Day Years [...] AM EST documented as of this encounter Last Filed Vital Signs Vital Sign Reading Time Taken Comments Blood Pressure - - Pulse - - Temperature - - Respiratory Rate - - Oxygen Saturation - - Inhaled Oxygen Concentration - - Weight 65.8 kg (145 lb) 07/02/2019 6:45 PM EST Height 162.6 cm (5' 4 ) 07/02/2019 6:45 PM EST Body Mass Index 24.89 07/02/2019 6:45 PM EST documented in this encounter Functional Status documented as of this encounter Plan of Treatment Upcoming Encounters Date Type Department Care Team (Late st Contact Info) Description 04/24/2025 9:40 AM EST Telemedicine [facility] Department of Orthopaedic Surgery, Shoulder Service [address] [facility], [address] [place] [address] Kaci Tomlinson, DAILY [address] [address] 05/08/2025 11:00 AM EST Nurse Only [facility] [address] [place] [address] Unknown, Jose Manuel, 06/25/2025 10:00 AM EST [facility] 58 [place] [address] Susan Leon MD 15 [facility] [address] 201 [place] [address] [email or web address] Josephine Lin, PT 58 [place] [address] 07/28/2025 9:00 AM EST Telemedicine [facility] Department of Neurology 55 [facility], [address] [place] [address], [address] [place] [address] Penny Bautista MD [address] [place] [address] 720 [place] [address] [email or web address] 01/19/2026 9:30 AM EDT Office Visit [facility] [address] [place] [address] Brett Pan DO 22 [place] [address] 05/21/2026 10:00 AM EST Office Visit [facility] [employer] [facility] 15 [facility] 201 [place] [address] Susan Leon MD 15 [facility] 201 [place] [address] [email or web address] documented as of this encounter Visit Diagnoses [...] documented as of this encounter Care Teams Rheumatologist Relationship Specialty Start Date End Date Yuliana Montez MD [address] [address] [email or web address] PCP - General Family Medicine 06/27/19 07/26/20 Susan Leon MD [address] [address] PCP - General Family Medicine 07/27/20 Susan Leon MD [address] [place] [address] [email or web address] Insurance Assigned Provider 09/23/23 documented as of this encounter Additional Source Comments The information contained in this document represents components of the legal health record. It is not the complete legal health record.[facility]
--- OUTSIDE RECORDS SUMMARY | 2025-04-23 12:04 | XMS_ITS | Encounter Summary ---
Author Organization [facility] Address [address] [facility] [address] [place] [address] Phone Care Team Providers Care Residential Energy Auditor Name Role Phone Brett Wilson MD Primary Care Provider Unava ilable Susan Leon MD Primary Care Provider Yuliana Montez MD Primary Care Provider Susan Leon MD Primary Care Provider [phone] Susan Leon MD Unavailable Encounter Details Date Type Department Care Team (Late st Contact Info) Description 10/02/2018 Ancillary Orders [facility], X-Ray - [address] [place] [address] Kiara Rose, [facility] [address] [facility], [address] [place] [address] [email or web address] Pain Social History Tobacco Use Types Packs/Day [...] Info) Description 04/24/2025 9:40 AM EST Telemedicine [facility] Department of Orthopaedic Surgery, Shoulder Service [address], [address] [place] [address] Kaci Tomlinson PA-C [address] [address] [email or web address] 05/08/2025 11:00 AM EST Nurse Only [facility] [address] [place] [address] Unknown, MD Jose Manuel 06/25/2025 10:00 AM EST Office Visit [facility] 58 [place] [address] Susan Leon MD [address] [address] [email or web address] Josephine Lin, PT 58 [place] [address] 07/28/2025 9:00 AM EST Telemedicine [facility] Department of Neurology 55 [facility], [address] [place] [address], [address] [place] [address] Penny Bautista MD [address] [place] [phone] [email or web address] 01/19/2026 9:30 AM EDT Office Visit [facility] [address] [place] [address] Brett Pan DO 22 [place] [address] 05/21/2026 10:00 AM EST Office Visit [facility] 15 [facility] [address] [place] [address] Susan Leon MD 15 [facility] Shailesh. 201 [place] [address] documented as of this encounter Results * XR ANKLE 3 OR MORE VIEWS (LEFT) (10/02/2018 6:27 PM EDT) Anatomical Region Laterality Modality Ankle Left Radiographic Rosa ging 10/02/2018 8:56 PM EDT Impressions 10/02/2018 8:57 PM EDT Lateral ankle soft tissue swelling with a nondisplaced fracture at the tip of the lateral malleolus. POS - [id number] Narrative 10/02/2018 8:57 PM EDT XR ANKLE 3 OR MORE VIEWS (LEFT) HISTORY: Trauma, pain. TECHNIQUE: Three views left ankle. COMPARISON: None. FINDINGS: There is a nondisplaced fracture of the lateral malleolus, at the tip, where there is overlying marked lateral ankle soft tissue swelling. The talar dome and ankle mortise is normal. Normal talar dome. No fracture of the distal tibia. There is no dislocation. Procedure Note Dianna Cabrera MD - 10/02/2018 XR ANKLE 3 OR MORE VIEWS (LEFT) HISTORY: Trauma, pain. TECHNIQUE: Three views left ankle. COMPARISON: None. FINDINGS: There is a nondisplaced fracture of the lateral malleolus, at the tip,where there is overlying marked lateral ankle soft tissue swelling. Thetalar dome and ankle mortise is normal. Normal talar dome. No fracture ofthe distal tibia. There is no dislocation. IMPRESSION: Lateral ankle soft tissue swelling with a nondisplaced fracture at the tipof the lateral malleolus. POS - [id number] Kiara Rose MANAGER VIDEO GAMES IMG XR LOWER EXTREMITY F inal Result * XR FOOT 3 OR MORE VIEWS (LEFT) (10/02/2018 6:26 PM EDT) Anatomical Region Laterality Modality Foot Left Radiographic Rosa ging 10/02/2018 8:52 PM EDT Impressions 10/02/2018 8:56 PM EDT No acute fracture. Mild first MTP joint degenerative arthrosis. POS - [id number] Narrative 10/02/2018 8:56 PM EDT XR FOOT 3 OR MORE VIEWS (LEFT) HISTORY: - PAIN [SIGN/SX] TECHNIQUE: 3 views left foot. COMPARISON: 12/22/2017. FINDINGS: There is no acute fracture or dislocation. Mild first metatarsophalangeal joint space narrowing with medial marginal osteophytes. Bones are normal in alignment. Minimal plantar calcaneal spurring. There is no focal soft tissue abnormality. Procedure Note Dianna Cabrera MD - 10/02/2018 XR FOOT 3 OR MORE VIEWS (LEFT) HISTORY: - PAIN [SIGN/SX] TECHNIQUE: 3 views left foot. COMPARISON: 12/22/2017. FINDINGS: There is no acute fracture or dislocation. Mild first metatarsophalangealjoint space narrowing with medial marginal osteophytes. Bones are normal in alignment. Minimal plantar calcaneal spurring. Thereis no focal soft tissue abnormality. IMPRESSION: No acute fracture. Mild first MTP joint degenerative arthrosis. POS - [id number] Kiara Rose MANAGER VIDEO GAMES IMG XR LOWER EXTREMITY F inal Result documented in this encounter Visit Diagnoses Diagnosis Pain Generalized pain Pain Generalized pain Pain Generalized pain documented [...] documented as of this encounter Care Teams Residential Energy Auditor Relationship Specialty Start Date End Date Brett Wilson MD PCP - General Internal Medicine 06/24/16 04/24/19 Susan Loen MD [address] [place] [address] PCP - General Family Medicine 04/25/19 06/26/19 Yuliana Montez MD [address] [place] [address] PCP - General Family Medicine 06/27/19 07/26/20 Susan Leon MD [address] [place] [address] PCP - General Family Medicine 07/27/20 Susan Leon MD [address] [place] [phone] Insurance Assigned Provider 09/23/23 documented as of this encounter Additional Source Comments The information contained in this document represents components of the legal health record. It is not the complete legal health record.[facility]
--- OUTSIDE RECORDS SUMMARY | 2025-04-23 12:04 | XMS_ITS | Encounter Summary ---
Author Organization [facility] Address [address] [facility] [address] [place] [address] Phone Care Team Providers Care Collar Tailor Name Role Phone Yuliana Montez MD Primary Care Provider [phone] Susan Leon MD Primary Care Provider [phone] Susan Leon MD Unavailable Encounter Details Date Type Department Care Team (Latest Contact Info) Description 07/01/2019 Transcribe Orders [facility] [place] [address] [place] [address] Yuliana Montez MD [address] [facility] [address] [place] [address] [email or web address] Left temporal headache (Primary Dx); Transient memory loss Social History Tobacco Use Types Packs/Day Years [...] Info) Description 04/24/2025 9:40 AM EST Telemedicine [facility] Department of Orthopaedic Surgery, Shoulder Service [address] [facility], [address] [place] [address] aKci Tomlinson PA-C [address] [address] [email or web address] 05/08/2025 11:00 AM EST Nurse Only [facility] [address] [place] [address] Jose Manuel, MD Jose Manuel 06/25/2025 10:00 AM EST [facility] 58 [place] [address] Susan Leon MD [address] [address] [email or web address] Josephine Lin, PT 58 [place] [address] 07/28/2025 9:00 AM EST Telemedicine [facility] Department of Neurology 55 [facility], [address] [place] [address], [address] [place] [address] Penny Bautista MD [address] [place] [phone] [email or web address] 01/19/2026 9:30 AM EDT Office Visit [facility] [address] [place] [address] Brett Pan DO 22 [place] [address] 05/21/2026 10:00 AM EST Office Visit [facility] [place] [facility] [address] [employer] [place] [address] Susan Leon MD 15 [facility] [address] [place] [address] [email or web address] documented as of this encounter Results * Sedimentation rate (ESR) (07/01/2019 12:09 PM EST) ESR 8 0 - 30 mm/h [facility] Blood 07/01/2019 12:0 9 PM EST 07/01/2019 12:21 PM EST us Yuliana Montez MD LAB BLOOD BKR ORDERABLES Fin al Result [facility] [address] [place] [address] * CBC and differential (07/01/2019 12:09 PM EST) WBC 5.10 3.40 - 11.20 K/uL [facility] RBC 3.98 3.80 - 4.80 M/uL [facility] HGB 12.6 12.0 - 15.0 g/dL [facility] HCT 37.9 36.0 - 46.0 % [facility] PLT 254 130 - 400 K/uL [facility] MCV 95.2 79.0 - 98.0 [facility] MCH 31.7 27.0 - 34.8 pg [facility] MCHC 33.2 31.5 - 36.0 g/dL [facility] RDW 11.4 10.8 - 14.6 % [facility] MPV 11.4 9.4 - 12.4 [facility] NRBC 0.00 0.00 /100 WBCs [facility] ABSOLUTE NRBC 0.00 0.00 K/uL [facility] DIFF METHOD Auto [facility] NEUTS 51.5 45.30 - 77.70 % [facility] LYMPHS 38.8 12.30 - 39.70 % [facility] MONOS 7.3 4.10 - 12.80 % [facility] EOS 1.4 0 - 7.2 % [facility] BASOS 0.8 0 - 2.80 % [facility] Granulocytes, immature (%) 0.2 0.0 - 0.9 % [facility] ABSOLUTE NEUTS 2.63 1.40 - 7.70 K/uL [facility] ABSOLUTE LYMPHS 1.98 0.60 - 3.20 K/uL [facility] ABSOLUTE MONOS 0.37 0.11 - 0.59 K/uL [facility] ABSOLUTE EOS 0.07 0.01 - 0.50 K/uL [facility] ABSOLUTE BASOS 0.04 0.00 - 0.08 K/uL [facility] Granulocytes, immature 0.01 0.00 - 0.05 K/uL [facility] Blood 07/01/2019 12:0 9 PM EST 07/01/2019 12:21 PM EST Yuliana Montez MD LAB BLOOD BKR ORDERABLES Fin al Result Performing Organization Address City/[facility] Co de Phone Number [address] [address] * C-Reactive Protein (07/01/2019 12:09 PM EST) C REACTIVE PROTEIN <0.3 0.0 - 4.0 mg/L [facility] Blood 07/01/2019 12:0 9 PM EST 07/01/2019 12:21 PM EST Yuliana Montez MD LAB BLOOD BKR ORDERABLES Fin al Result Performing Organization Address City/[facility]/ZIP Co de Phone Number [address] [address] * Comprehensive metabolic panel (07/01/2019 12:09 PM EST) SODIUM 143 133 - 146 mmol/L [facility] POTASSIUM 4.2 3.3 - 5.1 mmol/L [facility] CHLORIDE 105 96 - 108 mmol/L [facility] CO2 24 21 - 35 mmol/L [facility] BUN 17 6 - 19 mg/dL [facility] CREATININE 0.60 0.5 - 1.5 mg/dL [facility] GLUCOSE 85 70 - 99 mg/dL [facility] ALBUMIN 4.3 3.9 - 4.8 g/dL [facility] TOTAL PROTEIN 6.9 6.5 - 8.0 g/dL [facility] CALCIUM 9.4 8.4 - 10.3 mg/dL [facility] ALKALINE PHOSPHATASE 77 39 - 117 U/L [facility] TOTAL BILIRUBIN 0.7 0.0 - 1.2 mg/dL [facility] AST 25 0 - 37 U/L [facility] ALT 16 0 - 40 U/L [facility] GLOBULIN 2.6 1 - 4.8 g/dL [facility] EGFR 95 >59 mL/min/1.7 3m2 [facility] Comment:If patient is black, multiply result by 1.159. Estimated glomerular filtration rate calculated using the CKD-EPI equation. ANION GAP 18 10 - 20 mmol/L [facility] Blood 07/01/2019 12:0 9 PM EST 07/01/2019 12:21 PM EST Yuliana Montez MD LAB BLOOD BKR ORDERABLES Fin al Result [address] [address] documented in this encounter Visit Diagnoses Diagnosis Left temporal headache- Primary Transient memory loss Memory loss documented in this encounter Additional Health Concerns [...] documented as of this encounter Care Teams Collar Tailor Relationship Specialty Start Date End Date Yuliana Montez MD [address] [place] [phone] PCP - General Family Medicine 06/27/19 07/26/20 Susan Leon MD [address] [place] [address] PCP - General Family Medicine 07/27/20 Susan Leon MD [address] [address] [email or web address] Insurance Assigned Provider 09/23/23 documented as of this encounter Additional Source Comments The information contained in this document represents components of the legal health record. It is not the complete legal health record.[facility]
--- OUTSIDE RECORDS SUMMARY | 2025-04-23 12:04 | XMS_ITS | Encounter Summary ---
Author Organization [facility] Address [address] [place] [address] Phone Care Team Providers Care Rib Puller Name Role Phone Yuliana Montez MD Primary Care Provider [phone] Susan Leon MD Primary Care Provider [phone] Susan Leon MD Unavailable Encounter Details Date Type Department Care Team (Late st Contact Info) Description 07/01/2019 Procedure Pass [address] [place] [address] Social History Tobacco Use Types Packs/Day Years [...] Info) Description 04/24/2025 9:40 AM EST Telemedicine [facility] Department of Orthopaedic Surgery, Shoulder Service [address] [facility], [address] [place] [address] Kaci Tomlinson, PA-C [address] [place] [address] [place] [address] 05/08/2025 11:00 AM EST Nurse Only [facility] [address] [place] [address] UnknownJose Manuel MD 06/25/2025 10:00 AM EST Office Visit [facility] 58 [place] [address] Susan Leon MD [address] [address] Josephine Lin, PT 58 [place] [address] 07/28/2025 9:00 AM EST Telemedicine [facility] Department of Neurology [address] [place] [address], [address] [place] [address] Penny Bautista MD [address] [place] [address] 720 [place] [address] [email or web address] 01/19/2026 9:30 AM EDT Office Visit [facility] [address] [place] [address] Brett Pan DO 22 [place] [address] 05/21/2026 10:00 AM EST Office Visit [facility] [address] [place] [address] Susan Leon MD 15 [facility]. [address] [place] [phone] [email or web address] documented as of this encounter Visit Diagnoses [...] documented as of this encounter Care Teams Rib Puller Relationship Specialty Start Date End Date Yuliana Montez MD [address] [place] [phone] [email or web address] PCP - General Family Medicine 06/27/19 07/26/20 Susan Leon MD [address] [place] [phone] [email or web address] PCP - General Family Medicine 07/27/20 Susan Leon MD [address] [place] [phone] Insurance Assigned Provider 09/23/23 documented as of this encounter Additional Source Comments The information contained in this document represents components of the legal health record. It is not the complete legal health record.[facility]
--- OUTSIDE RECORDS SUMMARY | 2025-04-23 12:05 | XMS_ITS | Encounter Summary ---
Author Organization [facility] Address [address] [place] [address] Phone Care Team Providers Care Phone Technician Name Role Phone Susan Leon MD Primary Care Provider [phone] Susan Leon MD Unavailable Encounter Details Date Type Department Care Team (Late st Contact Info) Description 10/28/2022 Procedure Pass [facility], Ct Scan - [address] [address] Social History Tobacco Use Types Packs/Day Years [...] high school, GED, job training, learning the Senegalese language, technical skills, or developing parenting skills)? [...] basis, and looking for work? No 08/23/2021 Intimate Partner Violence Answer Date R ecorded [...] Date of Assessment Author No Risk Indicated 10/28/2022 5:43 AM EDT Urmila Sheridan RN * [place] Suicide Severity Rating Scale (Screener/Recent Self-Report) Question Answer Date of Assessment Author 1. Wish to be (Past 1 Month) No 023 5:43 AM Urmila Shpeherd, RN 2. Non-Specific Active Suici tom Thoughts (Past 1 Month) No 10/28/2022 5:43 AM TIT Eulalio Christie, RN 6. Suicidal Behavior (Lifetime) No 5:43 AM EDT Urmila Christie, WILFREDO documented as of this encounter Plan of Treatment Upcoming Encounters Date Type Department Care Team (Late st Contact Info) Description 04/24/2025 9:40 AM EST Telemedicine [facility] Department of Orthopaedic Surgery, Shoulder Service 52 [facility], [address] [place] [address] Kaci Tomlinson, PAPrimoC [address] [facility] [address] [place] [address] 05/08/2025 11:00 AM EST Nurse Only [facility] [address] [place] [address] Unknown, MD Jose Manuel 06/25/2025 10:00 AM EST [facility] 58 [place] [address] Susan Leon MD 15 [facility] Shailesh. [address] [place] [address] [email or web address] Josephine Lin, PT 58 [place] [address] 07/28/2025 9:00 AM EST Telemedicine [facility] Department of Neurology 55 [facility], [address] [place] [address], [address] [place] [address] Penny Bautista MD [address] [place] [address] 720 [place] [address] [email or web address] 01/19/2026 9:30 AM EDT Office Visit [facility] [address] [place] [address] Brett Pan DO 22 [place] [address] 05/21/2026 10:00 AM EST Office Visit [facility] [address] [facility] [address] [place] [address] Susan Leon MD [address] [address] [email or web address] documented as of this encounter Visit Diagnoses [...] documented as of this encounter Care Teams Phone Technician Relationship Specialty Start Date End Date Susan Leon MD [address] [address] [email or web address] PCP - General Family Medicine 07/27/20 Susan Leon MD [address] [address] [email or web address] Insurance Assigned Provider 09/23/23 documented as of this encounter Additional Source Comments The information contained in this document represents components of the legal health record. It is not the complete legal health record.[facility]
--- OUTSIDE RECORDS SUMMARY | 2025-04-23 12:05 | XMS_ITS | Encounter Summary ---
Author Organization [facility] Address [address] [place] [address] Phone Care Team Providers Care Make Up Man Name Role Phone Susan Leon MD Primary Care Provider [phone] Susan Leon MD Unavailable Encounter Details Date Type Department Care Team (Late st Contact Info) Description 11/22/2021 Procedure Pass [facility] [address] [place] [address] Social History Tobacco Use Types Packs/Day Years [...] high school, GED, job training, learning the Argentine language, technical skills, or developing parenting skills)? [...] Info) Description 04/24/2025 9:40 AM EST Telemedicine [facility] Department of Orthopaedic Surgery, Shoulder Service [address] [place] [address], [address] [place] [id number] Kaci Tomlinson, PA-C [address] [place] [address] [email or web address] 05/08/2025 11:00 AM EST Nurse Only [facility] [address] [place] [address] Unknown, Unknown, 06/25/2025 10:00 AM EST Office [facility] 58 [place] [address] Susan Leon MD 15 [facility] Shailesh. 201 [place] [address] [email or web address] Josephine Lin, PT 58 [place] [address] [email or web address] 07/28/2025 9:00 AM EST Telemedicine [facility] Department of Neurology [address] [place] [address], [address] [place] [address], [address] [place] [address] Penny Bautista MD [address] [place] [address] 720 [place] [address] [email or web address] 01/19/2026 9:30 AM EDT Office Visit [facility] 22 [place] [address] Brett Pan DO 22 [place] [address] [email or web address] 05/21/2026 10:00 AM EST Office Visit [facility] [address] [facility] [address] [place] [address] Susan Leon MD 15 [facility] [address]. 201 [place] [address] [email or web address] documented as of [...] documented as of this encounter Care Teams Make Up Man Relationship Specialty Start Date End Date Susan Leon MD 15 [facility] [address]. [address] [place] [address] [email or web address] PCP - General Family Medicine 07/27/20 Susan Leon MD [address] [place] [phone] [email or web address] Insurance Assigned Provider 09/23/23 documented as of this encounter Additional Source Comments The information contained in this document represents components of the legal health record. It is not the complete legal health record.[facility]
--- OUTSIDE RECORDS SUMMARY | 2025-04-23 12:05 | XMS_ITS | Encounter Summary ---
Author Organization [facility] Address [address] [place] [address] [place] [address] Phone Care Team Providers Care Emergency Department Physician Name Role Phone Brett Wilson MD Primary Care Provider Unava ilable Susan Leon MD Primary Care Provider [phone] Yuliana Montez MD Primary Care Provider Susan Leon MD Primary Care Provider [phone] Susan Leon MD Unavailable Encounter Details Date Type Department Care Team (Latest Contact Info) Description 02/28/2019 Ancillary Orders [facility], X-Ray - [address] [place] [address] Keily Orr, GLASS EDGER [address] [place] [address] Intervertebral disc disorder with radiculopathy of lumbosacral region Social History Tobacco Use Types Packs/Day Years Used Date Smoking Tobacco: Never Smokeless Tobacco: Never Alcohol Use Standard Drinks/Week Comments Yes 0 (1 standard drink = 0.6 oz pur e alcohol) Comments Unknown Sex and Gender Information Value Date Recorded Sex Assigned at Female 07/01/2019 8:13 AM EST Legal Sex Female 5:19 PM EST Gender Identity Female 07/01/2019 8:13 AM EST Sexual Orientation Straight 07/01/2019 8: 13 AM EST documented as of this encounter Plan of Treatment Upcoming Encounters Date Type Department Care Team (Late Contact Info) Description 04/24/2025 9:40 AM EST Telemedicine [facility] Department of Orthopaedic Surgery, Shoulder Service 52 [facility], [address] [place] [address] Kaci Tomlinson, DAILY [address] [address] [email or web address] 05/08/2025 11:00 AM EST Nurse Only [facility] 22 [place] [address] Unknown, Jose Manuel, 06/25/2025 10:00 AM EST Office Visit [facility] 58 [place], [place] [phone] Susan Leon MD 15 [facility] Shailesh. 201 [place] [address] [email or web address] Josephine Lin, PT 58 [place] [address] 07/28/2025 9:00 AM EST Telemedicine [facility] Department of Neurology 55 [facility], [address] [place] [address], [address] [place] [address] Penny Bautista MD [address] [place] [phone] [email or web address] 01/19/2026 9:30 AM EDT Office Visit [facility] 22 [place] [address] Brett Pan DO 22 [place], [place] [id number] 05/21/2026 10:00 AM EST Office Visit [facility] 15 [facility] [address] [place], [place] [address] Susan Leon MD [address] [place] [address]. [address] [place] [phone] [email or web address] documented as of this encounter Results * XR LUMBOSACRAL SPINE 4 OR MORE VIEWS (02/28/2019 3:19 PM EDT) Anatomical Region Laterality Modality L-spine Radiographic Orsa ging 02/28/2019 9:31 PM EDT Impressions 02/28/2019 9:34 PM EDT Mild endplate changes from degenerative disc disease L1-L4. Minimal anterolisthesis of L4 on L5. Lower lumbar spine facet arthrosis. POS - [id number] Narrative 02/28/2019 9:34 PM EDT XR LUMBOSACRAL SPINE 4 OR MORE VIEWS HISTORY: - PAIN [SIGN/SX, low back pain x2 months.] TECHNIQUE: 5 views lumbar spine: AP, lateral, lateral L5-S1 Spot, bilateral oblique views lumbar spine. COMPARISON: none FINDINGS: There is 4 mm anterolisthesis L4 on L5. The other vertebrae are normal in alignment. Normal vertebral body heights. No pars defects. There is lower lumbar spine facet arthrosis, with facet hypertrophy L4-L5 and L5-S1. Mild degenerative disc space narrowing at L1-L2, L2-L3 and L3-L4, with minor anterior marginal endplate spurring. The L4-L5 and L5-S1 intervertebral disc spaces are normal in height. Procedure Note Dianna Cabrera MD - 02/28/2019 XR LUMBOSACRAL SPINE 4 OR MORE VIEWS HISTORY: - PAIN [SIGN/SX, low back pain x2 months.] TECHNIQUE: 5 views lumbar spine: AP, lateral, lateral L5-S1 Spot,bilateral oblique views lumbar spine. COMPARISON: none FINDINGS: There is 4 mm anterolisthesis L4 on L5. The other vertebrae are normal inalignment. Normal vertebral body heights. No pars defects. There is lower lumbar spine facet arthrosis, with facet hypertrophy L4-L5and L5- S1. Mild degenerative disc space narrowing at L1-L2, L2-L3 and L3-L4, withminor anterior marginal endplate spurring. The L4-L5 and L5-W8qlnmiyqowkecog disc spaces are normal in height. IMPRESSION: Mild endplate changes from degenerative disc disease L1-L4. Minimal anterolisthesis of L4 on L5. Lower lumbar spine facet arthrosis. 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 documented in this encounter Additional Health Concerns [...] documented as of this encounter Care Teams Emergency Department Physician Relationship Specialty Start Date End Date Brett Wilson MD PCP - General Internal Medicine 06/24/16 04/24/19 Susan Leon MD [address] [place] [address] [email or web address] PCP - General Family Medicine 04/25/19 06/26/19 Yuliana Montez MD [address] [place] [phone] [email or web address] PCP - General Family Medicine 06/27/19 07/26/20 Susan Leon MD [address] [place] [phone] [email or web address] PCP - General Family Medicine 07/27/20 Susan Leon MD [address] [place] [phone] [email or web address] Insurance Assigned Provider 09/23/23 documented as of this encounter Additional Source Comments The information contained in this document represents components of the legal health record. It is not the complete legal health record.[facility]
== END 2025-04-23 10:22 | disposition home or self-care (01) ==
LOC: HO.LAB 10:21
PROVIDERS: PCP Family Medicine; Visit Provider Internal Medicine
DX: I25.10 Atherosclerotic heart disease of native coronary artery without angina pectoris (principal); E78.5 Hyperlipidemia, unspecified
CPT/HCPCS: 36415; 80061; 80076